=== PATIENT | female | born 1950 | race Two or more races ===

== ENCOUNTER → 2017-11-06 | Outpatient (CLI) | payer MEDICARE, BC ==
--- NOTE | 2017-11-06 14:54 | MM ---
Reason for exam: screening (asymptomatic). History: Patient is postmenopausal and history of other cancer. Physical Findings: A clinical breast exam by your physician is recommended on an annual basis and results should be correlated with mammographic findings. MG 3D Screening Mammo W/Cad Bilateral CC and MLO view(s) were taken. No prior studies available for comparison. There are scattered fibroglandular densities. Finding: There are typically benign dystrophic, round calcifications in both breasts, greater in the right breast. There is a chronic nodularity bilaterally, anterior depth, number of small nodules greater in the left breast. ASSESSMENT: Incomplete: need additional imaging evaluation, BI-RAD 0 RECOMMENDATION: Ultrasound of both breasts. [facility] will attempt to contact patient to return for ultrasound.
== END | disposition home or self-care (01) ==
LOC: RADMAMWWP 11:14
PROVIDERS: ATTEND Family Medicine
DX: Z12.31 Encounter for screening mammogram for malignant neoplasm of breast (principal)
CPT/HCPCS: 77063; 77067

== ENCOUNTER → 2017-11-25 | Outpatient (CLI) | payer MEDICARE, BC ==
--- NOTE | 2017-11-27 11:11 | USB ---
Reason for exam: additional evaluation requested from abnormal screening. History: Patient is postmenopausal and history of other cancer. Physical Findings: Nurse did not find any significant physical abnormalities on exam. US Breast Workup Limited DERECK Right limited breast ultrasound including focal area of concern, retroareolar and axilla demonstrates a 0.5 x 0.4 x 0.3cm oval, cystic lesion at 9 o'clock, a 0.7 x 0.5 x 0.3cm oval, cystic cluster at 10 o'clock and a 0.9 x 0.8 x 0.6cm axilla node. Left limited breast ultrasound including focal area of concern, retroareolar and axilla demonstrates a 0.5 x 0.5 x 0.2cm oval, mixed lesion at 12 o'clock, clustered cysts at 12 o'clock and dilated ducts at 12 o'clock. These results were verbally communicated with the patient and result sheet given to the patient on 11/25/17. ASSESSMENT: Probably benign, BI-RAD 3 RECOMMENDATION: Follow-up diagnostic mammogram of both breasts in 6 months.
== END | disposition home or self-care (01) ==
LOC: RADUSWWP 14:33
PROVIDERS: ATTEND Family Medicine
DX: R92.8 Other abnormal and inconclusive findings on diagnostic imaging of breast (principal)

== ENCOUNTER 2018-10-12 20:25 | Observation (INO) | payer MEDICARE, OTHER ==
[2018-10-12] MEDS ORDERED: MORPHINE SULFATE 4 MG/ML SYRINGE IVP STA (21:07)
--- NOTE | 2018-10-12 21:10 | ED ---
General Adult HPI - General Chief complaint: Back Pain/Injury Stated complaint: Back Pain Time Seen by Provider: 10/12/18 20:27 Source: patient, EMS Mode of arrival: EMS Limitations: no limitations - History of Present Illness Initial comments: Dictation was produced using [employer] dictation software. please excuse any grammatical, word or spelling errors. Chief Complaint: 68-year-old female presents with back pain. History of Present Illness: Patient is a 5-year-old female she presents back pain. Patient is a extensive history of back surgery. She is had multiple back operations his age of 16 secondary to a fall. She is 68 years old. Last time she had any significant back pain was approximately 10 years ago. Denies any saddle anesthesia, no bowel or bladder incontinence. Denies any new neuro deficits to the lower extremities. 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 Strain on her back. Her symptoms have been ongoing for the last 3-4 days. Today her pain was so bad that she came to the emergency department. Denies any trauma. No fever, Chills or night sweats. She states that most of her pain is when moving. When she is not moving she does not have any pain. The ROS documented in this emergency department record has been reviewed and confirmed by me. Those systems with pertinent positive or negative responses have been documented in the HPI. All other systems are other negative and/or noncontributory. PHYSICAL EXAM: General Impression: Alert and oriented x3, acute distress secondary to pain HEENT: Normocephalic atraumatic, extra-ocular movements intact, pupils equal and reactive to light bilaterally, mucous membranes moist. Cardiovascular: Heart regular rate and rhythm, S1&S2 audible, no murmurs, rubs or gallops Chest: Lungs clear to auscultation bilaterally, no rhonchi, no wheeze, no rales Abdomen: Bowel sounds present, abdomen soft, non-tender, non-distended, no organomegaly Musculoskeletal: Pulses present and equal in all extremities, no peripheral edema Motor: no focal deficits noted Neurological: CN II-XII grossly intact, no focal motor or sensory deficits noted Skin: Intact with no visualized rashes Psych: Normal affect and mood ED course: 68-year-old female presents with back pain. It's nontraumatic. Patient has history of back surgery with instrumentation. Vital signs upon arrival are within acceptable limits. No red flag symptoms. Patient is given fentanyl by EMS which improved patient's symptoms. Attempted to manipulate patient however she reports that her pain is too significant.Laboratory evaluation found to be unremarkable. Given patient's degree of symptoms lumbar spine of the CT was performed. CT shows no acute processes however there is multilevel postsurgical degenerative changes. Patient given multiple bouts of IV analgesia. She attempts to walk however her pain was so significant that she was unable to. Patient will be admitted to observation with consultation to spine surgery, and pain control. - Related Data Home Medications Medication Instructions Recorded Confirmed Acetaminophen [Tylenol Extra 1,000 mg PO TID PRN 10/12/18 10/12/18 Strength] Atorvastatin [Lipitor] 40 mg PO HS 10/12/18 10/12/18 Cbd Oil 500mg 2 drops MUCOUS MEM BID 10/12/18 10/12/18 Cholecalciferol [Vitamin D3 (25 1,000 unit PO DAILY 10/12/18 10/12/18 Mcg = 1000 Iu)] FLUoxetine HCL [PROzac] 40 mg PO DAILY 10/12/18 10/12/18 Famotidine [Pepcid] 20 mg PO DAILY 10/12/18 10/12/18 Gabapentin [Neurontin] 200 mg PO TID 10/12/18 10/12/18 Oxybutynin Xl [Ditropan Xl] 5 mg PO DAILY 10/12/18 10/12/18 Allergies Allergy/AdvReac Type Severity Reaction Status Date / Time No Known Allergies Allergy Verified 10/12/18 20:53 Review of Systems ROS Statement: Those systems with pertinent positive or pertinent negative responses have been documented in the HPI. ROS Other: All systems not noted in ROS Statement are negative. Past Medical History Past Medical History: Hypertension History of Any Multi-Drug Resistant Organisms: None Reported Past Surgical History: Back Surgery Additional Past Surgical History / Comment(s): claudia to lower back. bilateral lens replacement. Past Psychological History: Anxiety, Depression Smoking Status: Former smoker Past Alcohol Use History: Rare Past Drug Use History: Marijuana General Exam Limitations: no limitations Course Vital Signs 10/12/18 10/12/18 20:28 21:55 Temperature 98.9 F Pulse Rate 72 76 Respiratory 16 18 Rate Blood Pressure 148/67 148/79 O2 Sat by Pulse 95 98 Oximetry Medical Decision Making - Lab Data Result diagrams: 10/12/18 21:24 10/12/18 21:24 Lab Results 10/12/18 10/12/18 Range/Units 21:24 21:24 WBC 10.1 (3.8-10.6) k/uL RBC 4.79 (3.80-5.40) m/uL Hgb 13.2 (11.4-16.0) gm/dL Hct 42.3 (34.0-46.0) % MCV 88.2 (80.0-100.0) fL MCH 27.6 (25.0-35.0) pg MCHC 31.3 (31.0-37.0) g/dL RDW 15.4 (11.5-15.5) % Plt Count 255 (150-450) k/uL Neutrophils % 76 % Lymphocytes % 12 % Monocytes % 7 % Eosinophils % 2 % Basophils % 0 % Neutrophils # 7.7 (1.3-7.7) k/uL Lymphocytes # 1.2 (1.0-4.8) k/uL Monocytes # 0.7 (0-1.0) k/uL Eosinophils # 0.2 (0-0.7) k/uL Basophils # 0.0 (0-0.2) k/uL Sodium 139 (137-145) mmol/L Potassium 4.5 (3.5-5.1) mmol/L Chloride 106 (98-107) mmol/L Carbon Dioxide 25 (22-30) mmol/L Anion Gap 8 mmol/L BUN 22 H (7-17) mg/dL Creatinine 0.89 (0.52-1.04) mg/dL Est GFR (CKD-EPI)AfAm 76 (>60 ml/min/1.73 sqM) Est GFR (CKD-EPI)NonAf 66 (>60 ml/min/1.73 sqM) Glucose 93 (74-99) mg/dL Calcium 9.2 (8.4-10.2) mg/dL Disposition Clinical Impression: Mechanical back pain Disposition: ADMITTED IP TO THIS [facility] Condition: Fair Referrals: Benny Barbosa MD [Primary Care Provider] - 1-2 days Decision Time: 22:51
[2018-10-12 21:42] LABS: Basophils % (A) 0 %; Eosinophils # (A) 0.2 k/uL (0-0.7); Eosinophils % (A) 2 %; HCT 42.3 % (34.0-46.0); HGB 13.2 gm/dL (11.4-16.0); Lymphocytes # (A) 1.2 k/uL (1.0-4.8); Lymphocytes % (A) 12 %; MCH 27.6 pg (25.0-35.0); MCHC 31.3 g/dL (31.0-37.0); MCV 88.2 fL (80.0-100.0); Mean Platelet Volume 6.8; Monocytes # (A) 0.7 k/uL (0-1.0); Monocytes % (A) 7 %; Neutrophils # (A) 7.7 k/uL (1.3-7.7); Neutrophils % (A) 76 %; Platelet Count 255 k/uL (150-450); RBC 4.79 m/uL (3.80-5.40); RDW 15.4 % (11.5-15.5); WBC 10.1 k/uL (3.8-10.6)
[2018-10-12 21:50] LABS: Calcium 9.2 mg/dL (8.4-10.2); Potassium 4.5 mmol/L (3.5-5.1)
--- NOTE | 2018-10-12 22:07 | CT ---
EXAMINATION TYPE: CT lumbar spine wo con DATE OF EXAM: 10/12/2018 9:40 PM COMPARISON: None. HISTORY: Low back pain. No injury. CT DLP: 1572 mGycm Automated exposure control for dose reduction was used. Unenhanced CT of the lumbar spine was performed. Bone and soft tissue window settings are submitted as well as coronal and sagittal reconstructions. 5 lumbar type vertebra are present. Lumbar spine shows straightening and alignment without evidence o f acute fracture or dislocation. There is moderate disc space narrowing with vacuum disc phenomenon a nd moderate anterior lateral spurring L2-L3 and L3-L4 levels. There is advanced disc space narrowing with moderate spurring at L4-L5 and L5-S1 levels. Posterior interpedicular rods and screws transfix L 4-S1 levels bilaterally. There is mild disc space narrowing with large right anterior spurring L1-L2 level. There are large bridging osteophytes in the lower thoracic spine.. Axial images at T12-L1 are felt within normal limits. Axial images at L1-L2 level show mild facet degenerative changes bilaterally. Axial images at L2-L3 level show moderate broad-based posterior spur disc complex effacing anterior t hecal sac with [id number] facet degenerative changes bilaterally. Posterior lateral thecal sac. There is moderate bilateral inferior neural foraminal narrowing. Axial images at L3-L4 level show advanced broad disc bulge effacing anterior thecal sac with mild-to- moderate facet degenerative changes bilaterally. There is mild left and moderate right-sided anterior inferior neural foraminal narrowing. Axial images at the L4-L5 level show postsurgical change with laminectomy defects and spinous process resection. Spinal canal is preserved. There is moderate right and mild left-sided neural foraminal n arrowing. Axial images at the L5-S1 level show [id number] facet degenerative changes bilaterally. There i s posterior using hardware. There are laminectomy defects and spinous process resection. There is mod erate to severe bilateral neural foraminal narrowing due to marginal spurring, left greater than righ t. Moderate to severe broad-based disc bulge is present. There are simple appearing 2 cm cyst laterally midpole of left kidney coronal image 23. There is darlene ical thinning of both kidneys. There is moderate to severe calcified plaque of the aorta extending in to branch vessels. A few sigmoid colonic diverticula are partially imaged. IMPRESSION: Multilevel postsurgical and degenerative changes as detailed above.
[2018-10-12] MEDS ORDERED: ONDANSETRON 4 MG/2 ML VIAL IVP PRN (22:48)
[2018-10-12] MEDS ORDERED: ACETAMINOPHEN TAB 325 MG TAB PO PRN (22:48)
[2018-10-12] MEDS ORDERED: NALOXONE 0.4 MG/ML 1 ML VIAL IV PRN (22:48)
[2018-10-12] MEDS ORDERED: oxyCODONE-APAP 5-325MG 1 EACH TAB PO PRN (22:48)
[2018-10-13] MEDS: MORPHINE SULFATE 4 MG/ML SYRINGE IV PRN ×3 (04:35→13:23)
[2018-10-13] MEDS: PANTOPRAZOLE 40 MG TABLET PO SCH (06:30)
[2018-10-13] MEDS: GABAPENTIN 100 MG CAP PO SCH ×3 (08:22→21:50)
--- NOTE | 2018-10-13 13:20 | P.CNOR ---
History of Present Illness - [facility] Consult date: 10/13/18 Requesting physician: Nitin Solis Consult reason: low back pain (Acute intractable low back pain), other (Right lower extremity radiculopathy) History of present illness: Patient is a very pleasant 68-year-old female who is seen and examined the bedside for further evaluation for intractable low back pain. She states a week ago, 10/06/2018, she was sitting in an awkward position for a prolonged period of time sitting on a hard chair leaning forward working on [employer]. Since that time she's been experiencing increased pain at the right lower lumbar spine with pain radiating over the right anterior thigh. Her symptoms continue to worsen without improvement and she presents emergency department yesterday for further evaluation. She is admitted to medicine consultation placed with orthopedics. A CT of the lumbar spine was performed during her presentation to the emergency department. She is known have previously undergone a posterior lateral decompression and fusion at L4-5 and L5-S1 performed in [place], [place] by Dr. Alva in 2007. She states her symptoms have been fairly well controlled until this exacerbation of her symptoms. She does not take narcotic pain medication at home. Her pain is so debilitating she's been requiring morphine IV for pain control. With the morphine she is able to ambulate with assistance of a walker. She denies specific lower extremity weakness bilaterally. She is difficulty with ambulation due to her pain. She has a past medical history which includes hypertension. Past Medical History Past Medical History: Hypertension Additional Past Medical History / Comment(s): arthritis, chronic back pain, neuropathy- in back into right leg. History of Any Multi-Drug Resistant Organisms: None Reported Past Surgical History: Back Surgery Additional Past Surgical History / Comment(s): claudia to lower back. bilateral lens replacement, 2019- left knee replacement. Past Anesthesia/Blood Transfusion Reactions: No Reported Reaction Past Psychological History: Anxiety, Depression, Panic Disorder Additional Psychological History / Comment(s): recently started having panic attacks- large crowds. Smoking Status: Former smoker Past Alcohol Use History: Rare Past Drug Use History: Marijuana - Past Family History Mother Family Medical History: Dementia, Hypertension Father Family Medical History: Dementia Medications and Allergies Home Medications Medication Instructions Recorded Confirmed Type Acetaminophen [Tylenol Extra 1,000 mg PO TID PRN 10/12/18 10/13/18 History Strength] Atorvastatin [Lipitor] 40 mg PO HS 10/12/18 10/12/18 History Cbd Oil 500mg 3 drops MUCOUS MEM BID 10/12/18 10/13/18 History Cholecalciferol [Vitamin D3 (25 1,000 unit PO DAILY 10/12/18 10/13/18 History Mcg = 1000 Iu)] FLUoxetine HCL [PROzac] 40 mg PO DAILY 10/12/18 10/12/18 History Famotidine [Pepcid] 20 mg PO DAILY 10/12/18 10/12/18 History Gabapentin [Neurontin] 200 mg PO TID 10/12/18 10/12/18 History Oxybutynin Xl [Ditropan Xl] 5 mg PO DAILY 10/12/18 10/12/18 History Allergies Allergy/AdvReac Type Severity Reaction Status Date / Time No Known Allergies Allergy Verified 10/12/18 20:53 Physical Examination Physical exam: Patient is awake, alert, and oriented 3 Vital signs stable Good chest excursion with deep inspiration and expiration Examination of lumbar spine reveals skin is intact with no abrasions, lacerations, or bruises; no erythema, purulence or signs of infection Evidence of a large well-healed incision along the midline of the lumbar spine No significant pain with palpation along the right side of the lower lumbar spine Dorsiflexion, plantarflexion, and extensor hallucis longus positive sustained bilaterally Lower extremity strength 5/5 bilaterally Hip flexion on the left exacerbates right-sided low back pain Straight leg test negative bilateral lower extremities No signs or symptoms of DVT; no calf pain No pain with internal and external rotation of the hips bilaterally Neurovascularly intact Results Pertinent studies: CT of the lumbar spine taken on 10/12/2018: Evidence of posterior interpedicular rods and screw fixation at L4-5 and L5-S1 bilaterally; significant osteophytic spurring in the lumbar spine most significant anteriorly at L2-3 and L3-4; Large right osteophytic spurring at L1-2; Bridging anterior osteophytic spurring of the lower thoracic spine; L2-3 moderately severe facet degenerative changes bilaterally and broad-based posterior disc spur complex resulting in bilateral neural foraminal narrowing; a 34 advanced broad-based disc protrusion and facet degenerative changes bilaterally resulting in mild left and moderate right neural foraminal narrowing - Labs Labs: Abnormal Lab Results - Last 24 Hours (Table) 10/12/18 Range/Units 21:24 BUN 22 H (7-17) mg/dL H & H 10/12/18 Range/Units 21:24 Hgb 13.2 (11.4-16.0) gm/dL Hct 42.3 (34.0-46.0) % Result Diagrams: 10/12/18 21:24 10/12/18 21:24 Assessment and Plan Assessment: Assessment: Acute intractable low back pain Right lower extremity radiculopathy Difficulty with ambulation due to pain Lumbar facet arthropathy Lumbar osteophytic spurring History of previous lumbar fusion L4-5 and L5-S1 History of hypertension (1) History of lumbar spinal fusion Current Visit: Yes Status: Acute Code(s): Z98.1 - ARTHRODESIS STATUS SNOMED Code(s): 92959014649311 (2) Intractable low back pain Current Visit: Yes Status: Acute Code(s): M54.5 - LOW BACK PAIN SNOMED Code(s): 89298865957940131 (3) Lumbar back pain with radiculopathy affecting right lower extremity Current Visit: Yes Status: Acute Code(s): M54.16 - RADICULOPATHY, LUMBAR REGION SNOMED Code(s): 274380394 (4) Lumbar facet arthropathy Current Visit: Yes Status: Acute Code(s): M47.816 - SPONDYLOSIS W/O MYELOPATHY OR RADICULOPATHY, LUMBAR REGION SNOMED Code(s): 377027884 (5) Osteophyte Current Visit: Yes Status: Acute Code(s): M25.70 - OSTEOPHYTE, UNSPECIFIED JOINT SNOMED Code(s): 965121473475027 (6) Decreased ambulation status Current Visit: Yes Status: Acute Code(s): Z74.09 - OTHER REDUCED MOBILITY SNOMED Code(s): 135967477 (7) Hypertension Current Visit: Yes Status: Acute Code(s): I10 - ESSENTIAL (PRIMARY) HYPERTENSION SNOMED Code(s): 42739213 Plan: Plan: 1. After physical examination the patient, reviewing of imaging, and further discussion with the patient, we will plan to obtain an MRI of the lumbar spine with and without contrast for further evaluation. Patient is known have previously undergone lumbar fusion at L4-5 and L5-S1 performed in 2007 in [place], [place]. Her symptoms have been adequately controlled since that time until her recent exacerbation of pain with increased right-sided low back pain and pain radiating over the right anterior thigh. She has had significant difficulty with ambulation and mobility due to her pain. She does have significant degenerative changes at her lumbar spine above her surgical levels. Her lower extremity radiculopathy symptoms could correlate well with these adjacent level changes. We will plan to obtain the MRI of the lumbar spine with and without contrast for further evaluation. We will follow up with the patient following the MRI results to discuss further treatment options. We will plan for consultation with pain management. Patient may continue to ambulate as tolerated and may continue using a walking aid as needed to aid in ambulation. Continue with pain control as prescribed by medicine. 2. Patient currently waiting for consultation with pain management 3. Patient will continue be seen and examined by medicine Time with Patient: Greater than 30 (Including obtaining history, physical examination, reviewing of imaging, and dictation.)
[2018-10-13] MEDS: OXYBUTYNIN XL 5 MG TAB.ER.24 PO SCH (13:21)
[2018-10-13] MEDS: FLUoxetine HCL 20 MG CAP PO SCH (13:21)
--- NOTE | 2018-10-13 15:13 | P.HPIM ---
History of Present Illness H&P Date: 10/13/18 Chief Complaint: Low back pain History of presenting complaint: This is a pleasant 68-year-old patient of Dr. sherman. Chronic stable medical conditions include hypertension, obesity, anxiety, depression. Back in 2009 patient had lower spine surgery done by Dr. Alva out of [place]. Titanium plates were placed. Patient had some pain on and off. Now patient presents increasing lower back pain. Some pain radiating radiating down the right leg. Patient does use a walker. No fever no chills. No local injury. No change in bowel or urine. Admitted for the same. Orthopedic spine was consulted. Patient has not followed up with Dr. Alva for a period. Review of systems: GEN.: None EYES: None HEENT: None NECK: None RESPIRATORY: None CARDIOVASCULAR: None GASTROINTESTINAL: None GENITOURINARY: None MUSCULOSKELETAL: As above LYMPHATICS: None HEMATOLOGICAL: None PSYCHIATRY: None NEUROLOGICAL: Anxiety depression controlled Social history: Lives alone. Did smoke in the remote past. Does use a walker. No alcohol. Physical examination: VITAL SIGNS: 98.9, 72, 16, 148/67, 95% on room air GENERAL: BMI 37.1, laying in bed, not in distress. EYES: Pupils equal. Conjunctiva normal. HEENT: External appearance of nose and ears normal, oral cavity grossly normal, receding frontal hairline. NECK: JVD not raised; masses not palpable. HEART: First and second heart sounds are normal; no edema. LUNGS: Respiratory rate normal; clear to auscultation. ABDOMEN: Soft, nontender, liver spleen not palpable, no masses palpable. PSYCH: Alert and oriented x3; mood and affect normal. NEUROLOGICAL: Cranial nerves grossly intact; no facial asymmetry, power and sensation grossly intact. LYMPHATICS: No lymph nodes palpable in the axilla and neck MUSCULOSKELETAL: Able to raise the left leg about 40, right leg about 50. Knee Reflexes are equivocal Investigations, reviewed in clinical context, Computed tomography scan of the lumbar spine showing multiple levels of DJD including bilateral neural foramina White count 10.1 hemoglobin 13.2 potassium 4.5 Assessment: -Acute on chronic low back pain in a patient's had surgery several years ago. Now presents with worsening pain. Computed tomography scan of the spine showing worsening arthritis at several levels of neural foramina narrowing. There is no one level of disease process. Doubt if any surgical intervention will have. -Essential hypertension -Radiculopathy from arthritis -Obesity BMI 37.1 -Anxiety depression otherwise specified Plan: We'll start the patient on Tylenol 3 schedule, baclofen for muscle spasm. Patient had a renal followed the past but currently his renal function is good. We will discussed with the patient and monitor renal function and give a trial of NSAIDs as admitted to be really be helpful helpful in this case. Other home medications resumed. Lovenox for DVT prophylaxis. Orthopedic spine Dr. Davila was consulted. Past Medical History Past Medical History: Hypertension Additional Past Medical History / Comment(s): arthritis, chronic back pain, neuropathy- in back into right leg. History of Any Multi-Drug Resistant Organisms: None Reported Past Surgical History: Back Surgery Additional Past Surgical History / Comment(s): claudia to lower back. bilateral lens replacement, 2019- left knee replacement. Past Anesthesia/Blood Transfusion Reactions: No Reported Reaction Past Psychological History: Anxiety, Depression, Panic Disorder Additional Psychological History / Comment(s): recently started having panic attacks- large crowds. Smoking Status: Former smoker Past Alcohol Use History: Rare Past Drug Use History: Marijuana - Past Family History Mother Family Medical History: Dementia, Hypertension Father Family Medical History: Dementia Medications and Allergies Home Medications Medication Instructions Recorded Confirmed Type Acetaminophen [Tylenol Extra 1,000 mg PO TID PRN 10/12/18 10/13/18 History Strength] Atorvastatin [Lipitor] 40 mg PO HS 10/12/18 10/12/18 History Cbd Oil 500mg 3 drops MUCOUS MEM BID 10/12/18 10/13/18 History Cholecalciferol [Vitamin D3 (25 1,000 unit PO DAILY 10/12/18 10/13/18 History Mcg = 1000 Iu)] FLUoxetine HCL [PROzac] 40 mg PO DAILY 10/12/18 10/12/18 History Famotidine [Pepcid] 20 mg PO DAILY 10/12/18 10/12/18 History Gabapentin [Neurontin] 200 mg PO TID 10/12/18 10/12/18 History Oxybutynin Xl [Ditropan Xl] 5 mg PO DAILY 10/12/18 10/12/18 History Allergies Allergy/AdvReac Type Severity Reaction Status Date / Time No Known Allergies Allergy Verified 10/12/18 20:53 Physical Exam Vitals: Vital Signs Temp Pulse Pulse Resp BP BP Pulse Ox 10/13/18 11:35 98.1 F 73 16 149/68 94 L 10/13/18 08:20 98.3 F 68 18 124/73 94 L 10/13/18 00:00 97.7 F 72 18 165/82 97 10/12/18 21:55 76 18 148/79 98 10/12/18 20:28 98.9 F 72 16 148/67 95 Intake and Output 10/13/18 10/13/18 10/13/18 06:59 14:59 22:59 Intake Total 120 1200 Balance 120 1200 Intake: Oral 120 1200 Other: Voiding Method Toilet # Voids 1 2 Results CBC & Chem 7: 10/12/18 21:24 10/12/18 21:24 Labs: Abnormal Lab Results - Last 24 Hours (Table) 10/12/18 Range/Units 21:24 BUN 22 H (7-17) mg/dL Thrombosis Risk Factor Assmnt - Choose All That Apply Any of the Below Risk Factors Present?: Yes Each Factor Represents 1 point: Obesity (BMI >25) Other Risk Factors: Yes Each Risk Factor Represents 2 Points: Age 61-74 years Other congenital or acquired thrombophilia - If yes, enter type in comment: No Thrombosis Risk Factor Assessment Total Risk Factor Score: 3 Thrombosis Risk Factor Assessment Level: Moderate Risk
[2018-10-13] MEDS: BACLOFEN 10 MG TAB PO SCH ×2 (15:58→21:50)
[2018-10-13] MEDS: ENOXAPARIN 40 MG/0.4 ML SYRINGE SQ SCH (15:58)
[2018-10-13] MEDS: Acetaminophen-Codeine 300-30mg TAB PO SCH ×2 (15:59→19:55)
[2018-10-13] MEDS: NAPROXEN 250 MG TAB PO SCH ×2 (16:00→21:51)
--- NOTE | 2018-10-13 16:42 | MR ---
EXAMINATION TYPE: MR lumbar spine wo/w con DATE OF EXAM: 10/13/2018 COMPARISON: None HISTORY: Intractable LBP, R LE Radiculopathy, Hx of fusion TECHNIQUE: Multiplanar, multisequence images of the lumbar spine were acquired utilizing 10 mL intravenous Gadav ist gadolinium contrast. Lumbar vertebra have normal alignment. There is narrowing of disc spaces throughout the lumbar spine. There is posterior fusion surgery from L4 to S1 with rods and screws. There is metal artifact. There is posterior disc herniation at L2-3 with hypertrophic facet arthropathy and resultant moderate spin al stenosis. There is narrowing of the neural foramina bilaterally at L4-5 and L5-S1 due to disc spac e narrowing and facet arthropathy. There is no compression fracture. I see no focal bone destruction. Contrast images show no pathologic enhancement. There is no lumbar paraspinal mass. Sacroiliac joint s appear normal. IMPRESSION: Moderate multilevel spondylosis. No fracture. Posterior fusion surgery. No sign of instability. Disc herniation posteriorly in the midline with facet arthropathy and mild to moderate L to 3 spinal steno sis. There is significant facet arthropathy on the left side at L3-4 with lateral recess stenosis. No fracture.
[2018-10-13] MEDS ORDERED: ATORVASTATIN 40 MG TAB PO SCH (21:00)
[2018-10-13] MEDS: methylPREDNISolone SOD SUCCI 125 MG/2 ML VIAL IV SCH (21:49)
[2018-10-13] MEDS: SODIUM CHLORIDE 0.9% 1,000 ML IV SCH ×2 (22:01)
[2018-10-14] MEDS: Acetaminophen-Codeine 300-30mg TAB PO SCH ×3 (00:36→12:17)
[2018-10-14] MEDS: PANTOPRAZOLE 40 MG TABLET PO SCH (06:28)
--- NOTE | 2018-10-14 07:05 | P.PAINCN ---
History of Present Illness - Reason for Consult Consult date: 10/13/18 - History of Present Illness This is a pleasant 68-year-old patient presenting with acute on chronic low back pain. Chronic stable medical conditions include hypertension, obesity, anxiety, depression. Patient had some chronic low back pain on and off for the last several years.. She states a week ago, 10/06/2018, she was sitting in an awkward position for a prolonged period of time sitting on a hard chair leaning forward over a low table working on [employer]. Since that time she's been experiencing increased pain at the right lower lumbar spine with pain radiating over the right anterior thigh. Her symptoms continue to worsen without improvement and she presents emergency department yesterday for further evaluation. She is admitted to medicine consultation placed with orthopedics. A CT of the lumbar spine was performed during her presentation to the emergency department. She is known have previously undergone a posterior lateral decompression and fusion at L4-5 and L5-S1 performed in [place], [place] by Dr. Alva in 2007. She states her symptoms have been fairly well controlled until t his exacerbation of her symptoms. She does not take narcotic pain medication at home. Her pain is so debilitating she's been requiring morphine IV for pain control. With the morphine she is able to ambulate with assistance of a walker. She denies specific lower extremity weakness bilaterally. She is having difficulty with ambulation due to her pain. Patient HAS NOT had injections previously. In addition to above, 13-point review of systems is also negative for chest pain, shortness of breath, changes in vision, changes in hearing, new onset weakness, abdominal pain, diarrhea, extreme fatigue, malaise, fever, skin changes, homicidal or suicidal ideation, or bowel or bladder incontinence. Vital Signs: Reviewed in EMR GENERAL: Well appearing, in no acute distress PSYCH: Mood and affect is appropriate. Awake, alert, and oriented SKIN: Skin color, texture, turgor normal, no rashes or lesions HEENT: Normocephalic, atraumatic. EOM intact CV: No pedal edema RESP: Respirations are unlabored, no audible wheezing GI: Abdomen non-distended MUSCULOSKELETAL: Bilateral lower extremity strength is normal and symmetric. No atrophy or tone abnormalities are noted. Lumbar spine: Tenderness to palpation over the lumbar spine and right-sided paraspinous muscles. Buttocks: No pain to palpation over the PSIS, Extremities: Peripheral joint ROM is full and pain free without obvious instability or laxity in all four extremities. No edema or skin discolorations noted. NEUR: No loss of sensation is noted. Cranial nerves are grossly intact. Imaging: MRI lumbar spine done shows posterior disc herniation at L2-3 resulting in moderate spinal canal stenosis. Posterior fusion from L4 to S1. Assessment: 1. Spinal canal stenosis 2. Lumbar radicular pain 3. Lumbar spondylosis 4. Obesity 5. Hypertension 6. Depression and anxiety Plan: Procedures: Patient may benefit from right L2-3 transforaminal epidural steroid injection. We will perform this while she is inpatient. Medications: Per primary team. Could potentially benefit from addition of Flexeril 5 mg 3 times a day when necessary for muscle spasms PQRS measures: 1-Patient's medications are documented in the chart. 2-Tobacco use is negative 3-Patient has not had a pneumococcal vaccine. 4-Advanced care planning not discussed 5-Opioid contract not signed with the patient. 6-Pain positive, follow-up visit or procedure scheduled 7-Patient's blood pressure measured and documented, within normal limits. 8-Patient's weight was measured, and body mass index ABOVE the normal limits, a nd counseling was done. Patient instructed to follow up with PCP. 9-Patient WAS NOT identified as an unhealthy alcohol user. Past Medical History Past Medical History: Hypertension Additional Past Medical History / Comment(s): arthritis, chronic back pain, neuropathy- in back into right leg. History of Any Multi-Drug Resistant Organisms: None Reported Past Surgical History: Back Surgery Additional Past Surgical History / Comment(s): claudia to lower back. bilateral lens replacement, 2019- left knee replacement. Past Anesthesia/Blood Transfusion Reactions: No Reported Reaction Past Psychological History: Anxiety, Depression, Panic Disorder Additional Psychological History / Comment(s): recently started having panic attacks- large crowds. Smoking Status: Former smoker Past Alcohol Use History: Rare Past Drug Use History: Marijuana - Past Family History Mother Family Medical History: Dementia, Hypertension Father Family Medical History: Dementia Medications and Allergies Home Medications Medication Instructions Recorded Confirmed Type Acetaminophen [Tylenol Extra 1,000 mg PO TID PRN 10/12/18 10/13/18 History Strength] Atorvastatin [Lipitor] 40 mg PO HS 10/12/18 10/12/18 History Cbd Oil 500mg 3 drops MUCOUS MEM BID 10/12/18 10/13/18 History Cholecalciferol [Vitamin D3 (25 1,000 unit PO DAILY 10/12/18 10/13/18 History Mcg = 1000 Iu)] FLUoxetine HCL [PROzac] 40 mg PO DAILY 10/12/18 10/12/18 History Famotidine [Pepcid] 20 mg PO DAILY 10/12/18 10/12/18 History Gabapentin [Neurontin] 200 mg PO TID 10/12/18 10/12/18 History Oxybutynin Xl [Ditropan Xl] 5 mg PO DAILY 10/12/18 10/12/18 History Allergies Allergy/AdvReac Type Severity Reaction Status Date / Time No Known Allergies Allergy Verified 10/12/18 20:53 Physical Exam Vitals: Vital Signs Temp Pulse Resp BP Pulse Ox 10/14/18 00:38 98 F 79 18 147/86 93 L 10/13/18 19:25 98.3 F 65 18 139/83 95 10/13/18 16:25 98.2 F 66 18 120/60 93 L 10/13/18 11:35 98.1 F 73 16 149/68 94 L 10/13/18 08:20 98.3 F 68 18 124/73 94 L Intake and Output 10/13/18 10/13/18 10/14/18 14:59 22:59 06:59 Intake Total 1200 1600 Balance 1200 1600 Intake: Intake, IV Titration 1000 Amount Sodium Chloride 0.9% 1, 1000 000 ml @ 20 mls/hr IV . Q24H FAITH Rx#:[id number] Oral 1200 600 Other: Voiding Method Toilet Toilet Toilet # Voids 2 1 1 Results CBC & Chem 7: 10/12/18 21:24 10/12/18 21:24 PQRS Measure Charge Sheet PQRS Narrative: Smoking Status Former smoker Do You Want the Pneumonia No Vaccine AT THIS TIME? Blood Pressure [Right Arm] 147/86 Blood Pressure 148/79 Pain Intensity [Right Lower 0 Back] Pain Intensity 2 Pain Scale Used Non Verbal Pain Indicator Scale Used Numeric (1 - 10) Home Medications: Ambulatory Orders Acetaminophen [Tylenol Extra Strength] 1,000 mg PO TID PRN 10/12/18 Atorvastatin [Lipitor] 40 mg PO HS 10/12/18 Cbd Oil 500mg 3 drops MUCOUS MEM BID 10/12/18 Cholecalciferol [Vitamin D3 (25 Mcg = 1000 Iu)] 1,000 unit PO DAILY 10/12/18 FLUoxetine HCL [PROzac] 40 mg PO DAILY 10/12/18 Famotidine [Pepcid] 20 mg PO DAILY 10/12/18 Gabapentin [Neurontin] 200 mg PO TID 10/12/18 Oxybutynin Xl [Ditropan Xl] 5 mg PO DAILY 10/12/18
[2018-10-14] MEDS: GABAPENTIN 100 MG CAP PO SCH (08:40)
[2018-10-14] MEDS: methylPREDNISolone SOD SUCCI 125 MG/2 ML VIAL IV SCH (08:40)
[2018-10-14] MEDS: FLUoxetine HCL 20 MG CAP PO SCH (08:41)
[2018-10-14] MEDS: OXYBUTYNIN XL 5 MG TAB.ER.24 PO SCH (08:41)
[2018-10-14] MEDS: BACLOFEN 10 MG TAB PO SCH (08:42)
[2018-10-14] MEDS: ENOXAPARIN 40 MG/0.4 ML SYRINGE SQ SCH (08:43)
[2018-10-14] MEDS: NAPROXEN 250 MG TAB PO SCH (08:43)
[2018-10-14] MEDS ORDERED: FAMOTIDINE 20 MG TAB PO SCH (09:00)
[2018-10-14 11:25] VITALS: RESP 20
[2018-10-14 12:57] VITALS: BP 152/88; PULSE 90; TEMP 97.8
--- NOTE | 2018-10-15 10:18 | P.DS ---
Providers Date of admission: 10/12/18 22:49 Expected date of discharge: 10/14/18 Attending physician: Joe Carmona Consults: 10/12/18 22:49 Consult Physician Routine Consulting Provider: Dasia Reyes Consult Reason/Comments: back pain Do you want consulting provider notified?: Yes Primary care physician: Benny Barbosa [facility] Course: Hospital course: This is a pleasant 68-year-old patient of Dr. barbosa. Chronic stable medical conditions include hypertension, obesity, anxiety, depression. Back in 2009 patient had lower spine surgery done by Dr. Alva out of [place]. Titanium plates were placed. Patient had some pain on and off. Now patient presents increasing lower back pain. Some pain radiating radiating down the right leg. Patient does use a walker. No fever no chills. No local injury. No change in bowel or urine. Admitted for the same. Orthopedic spine was consulted. Patient has not followed up with Dr. Alva for a period. Patient did have both lumbar spine computed tomography scan and a lumbar MRI. Showed predominantly moderate multiple level spondylosis. No fracture. Showed prior surgery evidence. Some discomfort herniation. Patient was seen by the pain management team. They will schedule epidural injection as an outpatient. Patient was given NSAIDs antispasmodic to which she responded well. Care was discussed with her in detail. In the past she's had kidney problems. She was told to follow up in a week for the family doctor to get a kidney numbers checked again. She'll also try to reach out to her previous surgeon Dr. Alva. She also follows with a local orthopedic spine Dr. Frye Discussion discharge planning more than 35 minutes Consultation: Dr. Fox from pain management Dr. reyes from orthopedic spine Physical examination: VITAL SIGNS: 98, 88, 20, 146/84, 95% room air GENERAL: BMI 37.1, laying in bed, not in distress. HEART: First and second heart sounds are normal; no edema. LUNGS: Respiratory rate normal; clear to auscultation. ABDOMEN: Soft, nontender, liver spleen not palpable, no masses palpable. PSYCH: Alert and oriented x3; mood and affect normal. NEUROLOGICAL: Cranial nerves grossly intact; no facial asymmetry, power and sensation grossly intact. MUSCULOSKELETAL: Able to raise the left leg about 40, right leg about 50. Knee Reflexes are equivocal Investigations, reviewed in clinical context, Computed tomography scan of the lumbar spine showing multiple levels of DJD including bilateral neural foramina MRI of the lumbar spine-see above White count 10.1 hemoglobin 13.2 potassium 4.5 Assessment: -Acute on chronic low back pain in a patient's had surgery several years ago. Now presents with worsening pain. Computed tomography scan of the spine showing worsening arthritis at several levels of neural foramina narrowing. There is no one level of disease process. Doubt if any surgical intervention will help. -Essential hypertension -Radiculopathy from arthritis -Obesity BMI 37.1 -Anxiety depression otherwise specified Disposition: Home Patient Condition at Discharge: Stable Plan - Discharge Summary Discharge Rx Participant: No New Discharge Prescriptions: New Baclofen 5 mg PO TID #21 tablet Naproxen [Naprosyn] 250 mg PO TID #20 tab Continue Cholecalciferol [Vitamin D3 (25 Mcg = 1000 Iu)] 1,000 unit PO DAILY Oxybutynin Xl [Ditropan XL] 5 mg PO DAILY Gabapentin [Neurontin] 200 mg PO TID FLUoxetine HCL [PROzac] 40 mg PO DAILY Atorvastatin [Lipitor] 40 mg PO HS Changed Famotidine [Pepcid] 20 mg PO BID #60 tab Acetaminophen [Tylenol Extra Strength] 500 mg PO Q6H #1 No Action Cbd Oil 500mg 3 drops MUCOUS MEM BID predniSONE See Taper PO DAILY Discharge Medication List Atorvastatin [Lipitor] 40 mg PO HS 10/12/18 [History] Cbd Oil 500mg 3 drops MUCOUS MEM BID 10/12/18 [History] Cholecalciferol [Vitamin D3 (25 Mcg = 1000 Iu)] 1,000 unit PO DAILY 10/12/18 [History] FLUoxetine HCL [PROzac] 40 mg PO DAILY 10/12/18 [History] Gabapentin [Neurontin] 200 mg PO TID 10/12/18 [History] Oxybutynin Xl [Ditropan XL] 5 mg PO DAILY 10/12/18 [History] Acetaminophen [Tylenol Extra Strength] 500 mg PO Q6H #1 10/14/18 [Rx] Baclofen 5 mg PO TID #21 tablet 10/14/18 [Rx] Famotidine [Pepcid] 20 mg PO BID #60 tab 10/14/18 [Rx] Naproxen [Naprosyn] 250 mg PO TID #20 tab 10/14/18 [Rx] predniSONE See Taper PO DAILY 10/15/18 [History] Follow up Appointment(s)/Referral(s): Benny Barbosa MD [Primary Care Provider] - 10/29/18 11:20 am Rob Marie PAC [PHYSICIAN LEACH CELL OPERATOR] - 10/24/18 1:00 pm (Patient may follow-up with Rob Marie PA-C or Dr. Francisco Javier Reyes at [facility] on an as-needed basis following discharge. ) Activity/Diet/Wound Care/Special Instructions: Continue regular diet as tolerated. fluids are always encouraged. no heavy lifting pushing or pulling over 5 pounds until follow up with physician. epidural injection scheduled for (). continue medications as prescribed by physician. Follow up with physicians as directed. Call physician with any questions comments concerns worsening returning sypmtoms, fever 101.1 or higher, pain not controlled by prescribed medications. Discharge Disposition: HOME SELF-CARE
== END 2018-10-14 15:11 | disposition home or self-care (01) ==
LOC: EC 20:25 → 6PED 22:49
PROVIDERS: ADMIT Hospitalist; ATTEND Hospitalist
DX: G89.29 Other chronic pain (principal); M54.5 Low back pain; I10 Essential (primary) hypertension; E66.9 Obesity, unspecified; Z68.37 Body mass index [BMI] 37.0-37.9, adult; F41.0 Panic disorder [episodic paroxysmal anxiety]; F32.9 Major depressive disorder, single episode, unspecified; M47.26 Other spondylosis with radiculopathy, lumbar region; M47.9 Spondylosis, unspecified; Z98.1 Arthrodesis status; M48.061 Spinal stenosis, lumbar region without neurogenic claudication; M51.16 Intervertebral disc disorders with radiculopathy, lumbar region; M51.06 Intervertebral disc disorders with myelopathy, lumbar region; M46.96 Unspecified inflammatory spondylopathy, lumbar region; M46.06 Spinal enthesopathy, lumbar region; Z74.09 Other reduced mobility; Z87.891 Personal history of nicotine dependence; Z79.899 Other long term (current) drug therapy; Z82.49 Family history of ischemic heart disease and other diseases of the circulatory system; Z81.8 Family history of other mental and behavioral disorders
CPT/HCPCS: 96372; 96375; 96376 ×2; 96374; 99285; 36415; 80048; 85025; 72131; 72158; G0378 ×3; J2270 ×2; J2930 ×2; J1650; A9585

== ENCOUNTER 2018-10-16 10:14 | Day surgery (SDC) | payer MEDICARE, OTHER ==
[2018-10-15 10:08] VITALS: BMI 37.0
[~2018-10-16 10:14] MED LIST: LACTATED RINGERS 1,000 ML IV SCH
[2018-10-16] MEDS ORDERED: LIDOCAINE 1% 20 ML VIAL (10MG/ML) FOR IV START INTRADERMA ONE (10:48)
[2018-10-16 10:50] VITALS: TEMP 97.3
[2018-10-16 10:52] LABS: Glucose,Whole Blood 85 mg/dL (75-99)
--- NOTE | 2018-10-16 11:37 | P.PCN ---
Date of Procedure: 10/16/18 Procedure(s) Performed: PREOPERATIVE DIAGNOSIS: Lumbar radiculopathy POSTOPERATIVE DIAGNOSIS: Lumbar radiculopathy Attending physician: Agnieszka Fox M.D. PROCEDURE 1. Transforaminal epidural steroid injection under fluoroscopic guidance L2-L3 level, right side 2. Lumbar epidurogram ANESTHESIA: Local with 1% lidocaine 3 ml ; IV sedation with Versed and fentanyl PROCEDURE INDICATION: The patient with low back pain and radiculopathy symptoms unresponsive to conservative treatment. Fluoroscopy was used for the procedure and fluoroscopic images were saved to the radiology portion of patient's chart. PROCEDURE DESCRIPTION / TECHNIQUE: The patient was seen and identified in the preoperative area. Risks, benefits, complications, and alternatives were discussed with the patient. The patient agreed to proceed with the procedure and signed the consent. IV was started, and vital signs were stable. Patient was taken to the OR and time out was completed. The patient was placed in the prone position on procedure table and a pillow was placed under the abdomen to reduce lumbar lordosis. The lumbosacral area was prepped and draped in the usual sterile fashion. Vital signs were closely monitored during the procedure. Conscious sedation was used. Using oblique fluoroscopy, the chin of the ``Curtis dog and the skin and deeper tissues just below was localized with 1% lidocaine. Subsequently, a 22- gauge 3.5-inch spinal needle was advanced under a tunneled view fluoroscopic guidance just underneath the chin of the ``Curtis dog . Under lateral fluoroscopy, the needle was then advanced to the posterior border of the foramen. After negative aspiration of CSF and blood and with no paresthesias, 1 mL of Isovue-200 contrast dye was injected under live fluoroscopy and there was no evidence of intravascular injection. The injectate solution consisting of 10 mg of dexamethasone with 1 mL of 1% lidocaine was then delivered. The needle was withdrawn intact. At the end of the procedure, skin was cleansed, and bandages were applied. COMPLICATIONS: None COMMENTS: First attempt revealed psoas muscle spread, second attempt revealed good epidural spread. Of note patient has significant bridging osteophytes at L2-L3 on the right. DISPOSITION / PLANS: The patient was placed in a supine position and transferred to the recovery area in a stable condition for observation. There was no evidence of lower extremity motor or sensory deficit after the procedure. Patient was discharged from the recovery room after meeting discharge criteria. Home discharge instructions were given to the patient by the staff. The patient will follow up in clinic in 2-4 weeks.
[2018-10-16] MEDS ORDERED: IV FLUID CONTINUATION 1,000 ML IV ONE (11:48)
[2018-10-16 11:50] VITALS: RESP 18
[2018-10-16 12:12] VITALS: BP 160/97; PULSE 63
--- NOTE | 2018-10-16 13:00 | FL ---
Fluoroscopy HISTORY: Pain 20 seconds fluoroscopy time supplied to the referring clinician. 2 intraoperative C-arm images docum ent the procedure. See dictated report from anesthesia.
== END 2018-10-16 12:31 | disposition home or self-care (01) ==
LOC: ORPAIN 10:14
PROVIDERS: ATTEND Anesthesiology
DX: M54.16 Radiculopathy, lumbar region (principal); M25.78 Osteophyte, vertebrae
CPT/HCPCS: 64483; J2250; J1100; J3010; Q9966; 99152

== ENCOUNTER → 2018-10-30 | Outpatient (CLI) | payer MEDICARE, OTHER ==
--- NOTE | 2018-10-30 12:50 | P.PN ---
Subjective Progress Note Date: 10/30/18 This is a 68-year-old lady with history of chronic lower back pain with radiation to the right lower extremity down to the right knee with numbness in the right thigh. The patient had lumbar fusion previously. We did transforaminal epidural steroid injection at the L2 3 level on the right side but he weeks ago which gave her complete relief of pain for about 3 days and the pain started to come back gradually. Today, pt denies new-onset weakness, bowel/bladder incontinence, or any other signs or symptoms of cauda equina syndrome. There are no signs of acute intoxication, and no indications of medication diversion or overuse. In addition to above, 13-point review of systems is also negative for chest pain, shortness of breath, changes in vision, changes in hearing, new onset weakness, abdominal pain, diarrhea, extreme fatigue, malaise, fever, skin change s, homicidal or suicidal ideation, or bowel or bladder incontinence. Vital Signs: Reviewed in EMR Gen: AAOx3, NAD HEENT: PERRLA,hearing grossly normal Pulm: resp unlabored,CTA Heart:S1,S2, No Mur Neck: supple, trachea midline Neuro exam of the lower extremities: Normal muscle strength bilaterally, normal right knee reflex and absent left knee reflex due to previous knee replacement, absent ankle reflexes bilaterally Straight leg raising test: Negative bilaterally Elfego's test: Range of motion of the lumbar spine: Facet loading test: Tenderness in the paravertebral musculature: Positive bilaterally with the lumbar spine Neuro: CN II-XII grossly intact, Imaging: Reviewed in EMR/chart Assessment: Lumbar postlaminectomy pain syndrome Right lumbar radiculopathy Plan: 1. Explanation: Opioid and psychological risk scores were reviewed. Diagnoses, prognoses, and multiple treatment options including but not limited to physical therapy, interventional therapies, adjuvant medical therapies, narcotic medication therapies, and surgery were discussed with the patient and all questions were answered to the patient's satisfaction. 2. Opioid agreement: We do not prescribe opioids for this patient 3. Counseling: The patient was counseled extensively on SMOKING CESSATION, BODY MASS INDEX, EXERCISE. Specifically, the patient was instructed regarding the importance of smoking cessation, obesity, and exercise in the context of both chronic pain and overall health. 4. Procedures: Schedule him for a second transforaminal epidural steroid injection at the L2-L3 and L1-L2 levels on the right side 5. Consultations: None 6. Investigations: None 7. Medications: None 8. Disposition: Return to the above-mentioned procedure as soon as possible 9. Maps were reviewed and were appropriate. PQRS measures: 1-Patient's medications are documented in the chart. 2-Tobacco use is negative, counseling given 3-Patient has had a pneumococcal vaccine. 4-Advanced care planning discussed, patient unable to give 5-Opioid contract signed with the patient. 6-Pain positive, follow-up visit or procedure scheduled 7-Patient's blood pressure measured and documented within normal limits. The patient will follow up with his primary care physician. 8-Patient's weight was measured, and body mass index ABOVE the normal limits, and counseling was done. Patient instructed to follow up with PCP. 9-Patient WAS NOT identified as an unhealthy alcohol user. Objective - Vital Signs Vital signs: Vital Signs Temp Pulse 73 10/30/18 12:13 Resp 16 10/30/18 12:13 BP 113/77 10/30/18 12:13 Pulse Ox Intake & Output 10/29/18 10/30/18 10/30/18 18:59 06:59 18:59 Weight 101.605 kg
== END | disposition home or self-care (01) ==
CPT/HCPCS: 99211

== ENCOUNTER 2018-10-31 12:30 | Inpatient (IN) | payer MEDICARE, OTHER ==
[2018-10-31] MEDS ORDERED: SODIUM CHLORIDE 0.9% 1,000 ML IV STA ×2 (13:12)
[2018-10-31] MEDS ORDERED: PANTOPRAZOLE 40 MG/10 ML VIAL IVP STA (13:12)
[2018-10-31 13:38] LABS: Anisocytosis Slight; Basophils % (A) 0 %; Eosinophils # (A) 0.3 k/uL (0-0.7); Eosinophils % (A) 3 %; HCT 38.3 % (34.0-46.0); HGB 11.9 gm/dL (11.4-16.0); Lymphocytes % (A) 9 %; MCV 90.4 fL (80.0-100.0); Mean Platelet Volume 7.1; Monocytes # (A) 0.7 k/uL (0-1.0); Monocytes % (A) 7 %; Neutrophils # (A) 8.6 k/uL (1.3-7.7); Neutrophils % (A) 80 %; Platelet Count 243 k/uL (150-450); RBC 4.24 m/uL (3.80-5.40); RDW 16.4 % (11.5-15.5); WBC 10.9 k/uL (3.8-10.6)
[2018-10-31 13:47] LABS: Albumin 3.4 g/dL (3.5-5.0); Calcium 9.1 mg/dL (8.4-10.2); Potassium 4.8 mmol/L (3.5-5.1); Total Bilirubin 0.5 mg/dL (0.2-1.3); Total Protein 6.1 g/dL (6.3-8.2)
--- NOTE | 2018-10-31 14:03 | ED ---
GI Bleed HPI - General Source: patient, RN notes reviewed, old records reviewed Mode of arrival: ambulatory Limitations: no limitations <Zoila Gallegos - Last Filed: 10/31/18 15:02> <Keith Frank - Last Filed: 10/31/18 15:14> - General Chief complaint: GI Bleed Stated complaint: GI bleed Time Seen by Provider: 10/31/18 13:12 - History of Present Illness Initial comments: Patient is a 68-year-old female presents emergency department today with intermittent left lower sided abdominal cramping pain, and 3 episodes of black and red diarrhea. Patient reports symptoms started yesterday 04/11/1929 and the evening. Patient states that she is not on any blood thinners. Patient states she's never had a colonoscopy. Patient states that she has no antibiotic use. Denies fevers. She denies any nausea or vomiting. (Zoila Gallegos) - Related Data Home Medications Medication Instructions Recorded Confirmed Atorvastatin [Lipitor] 40 mg PO HS 10/12/18 10/31/18 Cholecalciferol [Vitamin D3 (25 1,000 unit PO DAILY 10/12/18 10/31/18 Mcg = 1000 Iu)] FLUoxetine HCL [PROzac] 40 mg PO DAILY 10/12/18 10/31/18 Gabapentin [Neurontin] 200 mg PO TID 10/12/18 10/31/18 Oxybutynin Xl [Ditropan XL] 5 mg PO DAILY 10/12/18 10/31/18 Enalapril [Vasotec] 2.5 mg PO DAILY 10/30/18 10/31/18 Baclofen 5 mg PO TID PRN 10/31/18 10/31/18 Famotidine [Pepcid] 20 mg PO DAILY 10/31/18 10/31/18 Naproxen [Naprosyn] 500 mg PO BID 10/31/18 10/31/18 Allergies Allergy/AdvReac Type Severity Reaction Status Date / Time No Known Allergies Allergy Verified 10/31/18 13:19 Review of Systems ROS Other: All systems not noted in ROS Statement are negative. <Zoila Gallegos - Last Filed: 10/31/18 15:02> ROS Other: All systems not noted in ROS Statement are negative. <Keith Frank - Last Filed: 10/31/18 15:14> ROS Statement: Those systems with pertinent positive or pertinent negative responses have been documented in the HPI. Past Medical History Past Medical History: Hypertension, Osteoarthritis (OA) Additional Past Medical History / Comment(s): arthritis, chronic back pain, neuropathy- in back into right leg. History of Any Multi-Drug Resistant Organisms: None Reported Past Surgical History: Back Surgery, Joint Replacement Additional Past Surgical History / Comment(s): claudia to lower back. bilateral lens replacement, 2019- left knee replacement. Past Anesthesia/Blood Transfusion Reactions: No Reported Reaction Past Psychological History: Anxiety, Depression, Panic Disorder Smoking Status: Former smoker Past Alcohol Use History: Rare Past Drug Use History: Marijuana - Past Family History Mother Family Medical History: Dementia, Hypertension Father Family Medical History: Dementia <Zoila Gallegos - Last Filed: 10/31/18 15:02> General Exam Limitations: no limitations General appearance: alert, in no apparent distress Head exam: Present: atraumatic, normocephalic, normal inspection Eye exam: Present: normal appearance, PERRL, EOMI. Absent: scleral icterus, conjunctival injection, periorbital swelling ENT exam: Present: normal exam, mucous membranes moist Neck exam: Present: normal inspection. Absent: tenderness, meningismus, lymphadenopathy Respiratory exam: Present: normal lung sounds bilaterally. Absent: respiratory distress, wheezes, rales, rhonchi, stridor Cardiovascular Exam: Present: regular rate, normal rhythm, normal heart sounds. Absent: systolic murmur, diastolic murmur, rubs, gallop, clicks GI/Abdominal exam: Present: soft, tenderness (Left lower quadrant tenderness), normal bowel sounds. Absent: distended, guarding, rebound, rigid Rectal exam: Present: normal inspection, heme (+) stool (Patient has evidence of black stool in rectal vault. Evidence of one hemorrhoid that appears not be bleeding at this time.), black stool Extremities exam: Present: normal inspection, full ROM, normal capillary refill. Absent: tenderness, pedal edema, joint swelling, calf tenderness Back exam: Present: normal inspection Neurological exam: Present: alert, oriented X3, CN II-XII intact Psychiatric exam: Present: normal affect, normal mood Skin exam: Present: warm, dry, intact, normal color. Absent: rash <Zoila Gallegos - Last Filed: 10/31/18 15:02> - General Exam Comments Initial Comments: Alert and oriented 68-year-old male. No significant distress. (Zoila Gallegos) Course <Keith Frank - Last Filed: 10/31/18 15:14> Vital Signs 10/31/18 10/31/18 12:38 13:34 Temperature 98.1 F Pulse Rate 64 Respiratory 18 16 Rate Blood Pressure 97/65 126/54 O2 Sat by Pulse 95 98 Oximetry - Reevaluation(s) Reevaluation #1: 10/31/18 15:14 PA supervision: I proceeded [id number] evaluation the patient she does present with complaints of blood per rectum she does demonstrate a hemoglobin is within normal limits however it is more than a gram lower than her usual level. She does have elevated BUN consistent with a upper GI bleed. She will be admitted for further evaluation the case is discussed with Dr. Carmona. (Keith Frank) Medical Decision Making - Lab Data Result diagrams: 10/31/18 13:25 10/31/18 13:25 - Radiology Data Radiology results: report reviewed <ElZoila - Last Filed: 10/31/18 15:02> - Lab Data Result diagrams: 10/31/18 13:25 10/31/18 13:25 <Keith Frank - Last Filed: 10/31/18 15:14> - Medical Decision Making Patient is a 68-year-old female presents to return today for evaluation for some left-sided abdominal cramping pain, episodes of bright red and black combination of diarrhea like stools for the past 24 hours. Patient states rectal exam shows evidence of some black tarry stool. Occult was positive. Patient's hemoglobin is slightly decreased from her normal at 11.3. Her last lab value was 13. Patient BUN is elevated also consistent with GI bleed. She is given a dose of Protonix. CT of the pelvis is completed and shows evidence of colitis. Patient will be started on IV fluids Protonix, and will be admitted at this time for GI bleed. (Zoila Gallegos) - Lab Data Lab Results 10/31/18 10/31/18 10/31/18 Range/Units 13:15 13:25 13:25 WBC 10.9 H (3.8-10.6) k/uL RBC 4.24 (3.80-5.40) m/uL Hgb 11.9 (11.4-16.0) gm/dL Hct 38.3 (34.0-46.0) % MCV 90.4 (80.0-100.0) fL MCH 28.0 (25.0-35.0) pg MCHC 31.0 (31.0-37.0) g/dL RDW 16.4 H (11.5-15.5) % Plt Count 243 (150-450) k/uL Neutrophils % 80 % Lymphocytes % 9 % Monocytes % 7 % Eosinophils % 3 % Basophils % 0 % Neutrophils # 8.6 H (1.3-7.7) k/uL Lymphocytes # 1.0 (1.0-4.8) k/uL Monocytes # 0.7 (0-1.0) k/uL Eosinophils # 0.3 (0-0.7) k/uL Basophils # 0.0 (0-0.2) k/uL Anisocytosis Slight APTT (22.0-30.0) sec Sodium 138 (137-145) mmol/L Potassium 4.8 (3.5-5.1) mmol/L Chloride 103 (98-107) mmol/L Carbon Dioxide 27 (22-30) mmol/L Anion Gap 8 mmol/L BUN 38 H (7-17) mg/dL Creatinine 0.93 (0.52-1.04) mg/dL Est GFR (CKD-EPI)AfAm 73 (>60 ml/min/1.73 sqM) Est GFR (CKD-EPI)NonAf 63 (>60 ml/min/1.73 sqM) Glucose 107 H (74-99) mg/dL Plasma Lactic Acid Loc (0.7-2.0) mmol/L Calcium 9.1 (8.4-10.2) mg/dL Total Bilirubin 0.5 (0.2-1.3) mg/dL AST 13 L (14-36) U/L ALT 26 (9-52) U/L Alkaline Phosphatase 59 (38-126) U/L Troponin I (0.000-0.034) ng/mL Total Protein 6.1 L (6.3-8.2) g/dL Albumin 3.4 L (3.5-5.0) g/dL Stool Occult Blood (Negative) Blood Type Blood Type Confirm A Positive Blood Type Recheck Antibody Screen Spec Expiration Date 10/31/18 10/31/18 10/31/18 Range/Units 13:25 13:25 13:25 WBC (3.8-10.6) k/uL RBC (3.80-5.40) m/uL Hgb (11.4-16.0) gm/dL Hct (34.0-46.0) % MCV (80.0-100.0) fL MCH (25.0-35.0) pg MCHC (31.0-37.0) g/dL RDW (11.5-15.5) % Plt Count (150-450) k/uL Neutrophils % % Lymphocytes % % Monocytes % % Eosinophils % % Basophils % % Neutrophils # (1.3-7.7) k/uL Lymphocytes # (1.0-4.8) k/uL Monocytes # (0-1.0) k/uL Eosinophils # (0-0.7) k/uL Basophils # (0-0.2) k/uL Anisocytosis APTT 23.2 (22.0-30.0) sec Sodium (137-145) mmol/L Potassium (3.5-5.1) mmol/L Chloride (98-107) mmol/L Carbon Dioxide (22-30) mmol/L Anion Gap mmol/L BUN (7-17) mg/dL Creatinine (0.52-1.04) mg/dL Est GFR (CKD-EPI)AfAm (>60 ml/min/1.73 sqM) Est GFR (CKD-EPI)NonAf (>60 ml/min/1.73 sqM) Glucose (74-99) mg/dL Plasma Lactic Acid Loc 1.0 (0.7-2.0) mmol/L Calcium (8.4-10.2) mg/dL Total Bilirubin (0.2-1.3) mg/dL AST (14-36) U/L ALT (9-52) U/L Alkaline Phosphatase (38-126) U/L Troponin I <0.012 (0.000-0.034) ng/mL Total Protein (6.3-8.2) g/dL Albumin (3.5-5.0) g/dL Stool Occult Blood (Negative) Blood Type Blood Type Confirm Blood Type Recheck Antibody Screen Spec Expiration Date 10/31/18 10/31/18 Range/Units 13:25 13:37 WBC (3.8-10.6) k/uL RBC (3.80-5.40) m/uL Hgb (11.4-16.0) gm/dL Hct (34.0-46.0) % MCV (80.0-100.0) fL MCH (25.0-35.0) pg MCHC (31.0-37.0) g/dL RDW (11.5-15.5) % Plt Count (150-450) k/uL Neutrophils % % Lymphocytes % % Monocytes % % Eosinophils % % Basophils % % Neutrophils # (1.3-7.7) k/uL Lymphocytes # (1.0-4.8) k/uL Monocytes # (0-1.0) k/uL Eosinophils # (0-0.7) k/uL Basophils # (0-0.2) k/uL Anisocytosis APTT (22.0-30.0) sec Sodium (137-145) mmol/L Potassium (3.5-5.1) mmol/L Chloride (98-107) mmol/L Carbon Dioxide (22-30) mmol/L Anion Gap mmol/L BUN (7-17) mg/dL Creatinine (0.52-1.04) mg/dL Est GFR (CKD-EPI)AfAm (>60 ml/min/1.73 sqM) Est GFR (CKD-EPI)NonAf (>60 ml/min/1.73 sqM) Glucose (74-99) mg/dL Plasma Lactic Acid Loc (0.7-2.0) mmol/L Calcium (8.4-10.2) mg/dL Total Bilirubin (0.2-1.3) mg/dL AST (14-36) U/L ALT (9-52) U/L Alkaline Phosphatase (38-126) U/L Troponin I (0.000-0.034) ng/mL Total Protein (6.3-8.2) g/dL Albumin (3.5-5.0) g/dL Stool Occult Blood Positive H (Negative) Blood Type A Positive Blood Type Confirm Blood Type Recheck CABO Indicated Antibody Screen NEGATIVE Spec Expiration Date 11/03/2018 - 2325 - Radiology Data CT states sequelae for colitis diverticulosis pad megaly. Indeterminate subpleural pulmonary nodule. Follow-up is recommended. (Zoila Gallegos) Disposition Is patient prescribed a controlled substance at d/c from ED?: No Time of Disposition: 15:05 <Zoila Gallegos - Last Filed: 10/31/18 15:02> <Keith Frank - Last Filed: 10/31/18 15:14> Clinical Impression: GI bleed, Colitis Disposition: ADMITTED IP TO THIS HOSP Condition: Stable Instructions (If sedation given, give patient instructions): Gastrointestinal Bleeding (ED) Referrals: Benny Barbosa MD [Primary Care Provider] - 1-2 days
--- NOTE | 2018-10-31 14:49 | CT ---
EXAMINATION TYPE: CT abdomen pelvis w con DATE OF EXAM: 10/31/2018 COMPARISON: None HISTORY: Back pain and Rectal bleeding. CT DLP: 1711.5 mGycm Automated exposure control for dose reduction was used. TECHNIQUE: Helical acquisition of images from the lung bases through the pelvis have been completed. CONTRAST: Performed without Oral Contrast and with IV Contrast, patient injected with 100 mL of Isovue 300. FINDINGS: Coronary artery calcifications are present, there is mitral annular calcification. LUNG BASES: Subpleural nodular density present in the left lower lobe on axial image 6 is subcentimet er in size and may be postinflammatory but is indeterminate, no pleural or pericardial effusion. AORTA: No aorta is dense but not aneurysmal. LIVER/GB: Liver is enlarged. Gallbladder is normal. PANCREAS: No significant abnormality is seen. SPLEEN: No significant abnormality is seen. ADRENALS: No significant abnormality is seen. KIDNEYS: Cortical cysts are present bilaterally. Largest on the left measures approximately 2.7 cm REPRODUCTIVE ORGANS: No significant abnormality is seen BOWEL: There is extensive diverticular change associated with the colon. Some colonic wall thickenin g is suspected distally. FREE AIR: No Free Air visible. ASCITES: None visible. PELVIC ADENOPATHY: None visualized. RETROPERITONEAL ADENOPATHY: No Retroperitoneal Adenopathy visible. URINARY BLADDER: No significant abnormality is seen. OSSEOUS STRUCTURES: Postop changes are present at the lumbosacral spine status post posterior fusion and multilevel laminectomy. IMPRESSION: CORRELATE FOR COLITIS. DIVERTICULOSIS. HEPATOMEGALY. INDETERMINATE SUBPLEURAL PULMONARY NODULE, FOLLO W-UP RECOMMENDED.
[2018-10-31] MEDS ORDERED: ONDANSETRON 4 MG/2 ML VIAL IVP PRN (15:06)
[2018-10-31] MEDS ORDERED: NALOXONE 0.4 MG/ML 1 ML VIAL IV PRN (15:06)
[2018-10-31] MEDS ORDERED: ACETAMINOPHEN TAB 325 MG TAB PO PRN (15:06)
[2018-10-31] MEDS: MORPHINE SULFATE 4 MG/ML SYRINGE IVP PRN (15:59)
[2018-10-31] MEDS: SODIUM CHLORIDE 0.9% 1,000 ML IV SCH (16:04)
[2018-10-31 16:44] VITALS: BMI 37.0
[2018-10-31 18:38] LABS: Appearance,Urine Clear (Clear); Bacteria,Urine Rare /hpf; Bilirubin,Urine Negative (Negative); Blood,Urine Negative (Negative); Color,Urine Colorless; Glucose,Urine (UA) Negative (Negative); Ketones,Urine Negative (Negative); Leukocyte Esterase,Urine Small (Negative); Nitrite,Urine Negative (Negative); PH, Urine 5.5 (5.0-8.0); Protein,Urine Negative (Negative); Specific Gravity,Urine 1.006 (1.001-1.035); Urobilinogen,Urine <2.0 mg/dL (<2.0)
[2018-10-31] MEDS: PANTOPRAZOLE 40 MG/10 ML VIAL IV SCH (19:35)
[2018-10-31] MEDS: GABAPENTIN 100 MG CAP PO SCH (19:36)
[2018-10-31] MEDS: OXYBUTYNIN XL 5 MG TAB.ER.24 PO SCH (19:36)
[2018-10-31] MEDS: FLUoxetine HCL 20 MG CAP PO SCH (19:36)
[2018-10-31] MEDS: ATORVASTATIN 40 MG TAB PO SCH (19:36)
[2018-10-31] MEDS: FAMOTIDINE 20 MG TAB PO SCH (19:36)
[2018-10-31] MEDS: LISINOPRIL 5 MG TAB PO SCH (19:36)
[2018-10-31 19:53] LABS: Anisocytosis Slight; Basophils % (A) 0 %; Eosinophils # (A) 0.2 k/uL (0-0.7); Eosinophils % (A) 3 %; HCT 35.2 % (34.0-46.0); HGB 10.8 gm/dL (11.4-16.0); Hypochromasia Moderate; Lymphocytes # (A) 1.3 k/uL (1.0-4.8); Lymphocytes % (A) 17 %; MCH 28.8 pg (25.0-35.0); MCHC 30.7 g/dL (31.0-37.0); MCV 93.9 fL (80.0-100.0); Mean Platelet Volume 7.6; Monocytes # (A) 0.5 k/uL (0-1.0); Monocytes % (A) 7 %; Neutrophils # (A) 5.6 k/uL (1.3-7.7); Neutrophils % (A) 71 %; Platelet Count 190 k/uL (150-450); RBC 3.75 m/uL (3.80-5.40); RDW 16.5 % (11.5-15.5); WBC 7.8 k/uL (3.8-10.6)
--- NOTE | 2018-10-31 22:19 | P.HPIM ---
History of Present Illness H&P Date: 10/31/18 Chief Complaint: Bloody stool History of presenting complaint: This is a very pleasant 68-year-old patient of Dr. Barbosa. Chronic stable medical conditions include hypertension, obesity, anxiety, depression, chronic low back pain from multiple reasons radiculopathy from arthritis, anxiety depression. Patient around 1:30 this morning started having bloody stools and the other episode of 5:30 this morning and then again at 10:30 AM. There were 3 bloody large bloody episodes that followed by dark stools. Patient decided to come down to the ER. No further episodes since then. Also has abdominal discomfort. No nausea vomiting. Does feel tired and rundown. Patient had been taking naproxen. On recent admission she was seen by Dr. Frye from orthopedic spine. Review of systems: GEN.: Tired EYES: None HEENT: Decreased hearing NECK: None RESPIRATORY: None CARDIOVASCULAR: None GASTROINTESTINAL: None GENITOURINARY: None MUSCULOSKELETAL: Chronic low back pain LYMPHATICS: None HEMATOLOGICAL: None PSYCHIATRY: None NEUROLOGICAL: Anxiety controlled past medical history to include: Chronic low back pain from spinal stenosis with radiculopathy, essential hyperte nsion, obesity, anxiety depression Social history: Patient does smoke in the past. Alcohol rarely. Does use CBD oral daily Family history: Dementia, hypertension Physical examination: VITAL SIGNS: 98.1, 64, 18, 126.54, 98% room air GENERAL: BMI 37.1, laying in bed, tired appearing. EYES: [Pupils equal. Conjunctiva pale l. HEENT: External appearance of nose and ears normal, oral cavity grossly normal. NECK: JVD not raised; masses not palpable. HEART: First and second heart sounds are normal; no edema. LUNGS: Respiratory rate normal; decreased breath sounds. ABDOMEN: Soft, nontender, liver spleen not palpable, no masses palpable. PSYCH: Alert and oriented x3; mood and affect normal. NEUROLOGICAL: Cranial nerves grossly intact; no facial asymmetry, power and sensation grossly intact. LYMPHATICS: No lymph nodes palpable in the axilla and neck INVESTIGATIONS, reviewed in the clinical context: White count 10.9 hemoglobin 11.9 repeat 10.8 it was 13.2 on October 12 potassium 4.8 creatinine 0.93 Assessment: -Acute upper GI P suspected from patient taking NSAIDs computed tomography scan of the abdomen shows extensive diverticular change with colonic wall thickening. -Colonic diverticulosis, cannot rule out diverticulitis -Chronic low back pain from spinal stenosis and arthritis with radiculopathy -Essential hypertension -Obesity BMI 37.1 -Anxiety depression otherwise specified Plan: GI was consulted. NSAIDs were held. We'll give PPI. H&H will be followed closely.. Care was discussed with the patient. We'll put on clear liquids. Patient will need at least 2 nights stay the hospital Past Medical History Past Medical History: Hypertension, Osteoarthritis (OA) Additional Past Medical History / Comment(s): arthritis, chronic back pain, neuropathy- in back into right leg. History of Any Multi-Drug Resistant Organisms: None Reported Past Surgical History: Back Surgery, Joint Replacement Additional Past Surgical History / Comment(s): claudia to lower back. bilateral lens replacement, 2019- left knee replacement. Past Anesthesia/Blood Transfusion Reactions: No Reported Reaction Past Psychological History: Anxiety, Depression, Panic Disorder Additional Psychological History / Comment(s): recently started having panic attacks- large crowds. Smoking Status: Former smoker Past Alcohol Use History: Rare Past Drug Use History: Marijuana Additional Drug Use History / Comment(s): CBD OIL DAILY - Past Family History Mother Family Medical History: Dementia, Hypertension Father Family Medical History: Dementia Medications and Allergies Home Medications Medication Instructions Recorded Confirmed Type Atorvastatin [Lipitor] 40 mg PO HS 10/12/18 10/31/18 History Cholecalciferol [Vitamin D3 (25 1,000 unit PO DAILY 10/12/18 10/31/18 History Mcg = 1000 Iu)] FLUoxetine HCL [PROzac] 40 mg PO DAILY 10/12/18 10/31/18 History Gabapentin [Neurontin] 200 mg PO TID 10/12/18 10/31/18 History Oxybutynin Xl [Ditropan XL] 5 mg PO DAILY 10/12/18 10/31/18 History Enalapril [Vasotec] 2.5 mg PO DAILY 10/30/18 10/31/18 History Baclofen 5 mg PO TID PRN 10/31/18 10/31/18 History Famotidine [Pepcid] 20 mg PO DAILY 10/31/18 10/31/18 History Naproxen [Naprosyn] 500 mg PO BID 10/31/18 10/31/18 History Allergies Allergy/AdvReac Type Severity Reaction Status Date / Time No Known Allergies Allergy Verified 10/31/18 13:19 Physical Exam Vitals: Vital Signs Temp Pulse Pulse Resp BP BP Pulse Ox 10/31/18 20:00 16 10/31/18 16:39 97.3 F L 72 16 168/58 99 10/31/18 13:34 16 126/54 98 10/31/18 12:38 98.1 F 64 18 97/65 95 Intake and Output 10/31/18 10/31/18 10/31/18 06:59 14:59 22:59 Other: Voiding Method Toilet Weight 101.151 kg Results CBC & Chem 7: 10/31/18 19:24 10/31/18 13:25 Labs: Abnormal Lab Results - Last 24 Hours (Table) 10/31/18 10/31/18 10/31/18 Range/Units 13:25 13:25 13:37 WBC 10.9 H (3.8-10.6) k/uL RBC (3.80-5.40) m/uL Hgb (11.4-16.0) gm/dL MCHC (31.0-37.0) g/dL RDW 16.4 H (11.5-15.5) % Neutrophils # 8.6 H (1.3-7.7) k/uL BUN 38 H (7-17) mg/dL Glucose 107 H (74-99) mg/dL AST 13 L (14-36) U/L Total Protein 6.1 L (6.3-8.2) g/dL Albumin 3.4 L (3.5-5.0) g/dL Ur Leukocyte Esterase (Negative) Urine Bacteria (None) /hpf Stool Occult Blood Positive H (Negative) 10/31/18 10/31/18 Range/Units 18:23 19:24 WBC (3.8-10.6) k/uL RBC 3.75 L (3.80-5.40) m/uL Hgb 10.8 L (11.4-16.0) gm/dL MCHC 30.7 L (31.0-37.0) g/dL RDW 16.5 H (11.5-15.5) % Neutrophils # (1.3-7.7) k/uL BUN (7-17) mg/dL Glucose (74-99) mg/dL AST (14-36) U/L Total Protein (6.3-8.2) g/dL Albumin (3.5-5.0) g/dL Ur Leukocyte Esterase Small H (Negative) Urine Bacteria Rare H (None) /hpf Stool Occult Blood (Negative) Thrombosis Risk Factor Assmnt - Choose All That Apply Any of the Below Risk Factors Present?: Yes Each Factor Represents 1 point: Obesity (BMI >25) Other Risk Factors: Yes Each Risk Factor Represents 2 Points: Age 61-74 years Thrombosis Risk Factor Assessment Total Risk Factor Score: 3 Thrombosis Risk Factor Assessment Level: Moderate Risk
[2018-11-01] MEDS: SODIUM CHLORIDE 0.9% 1,000 ML IV SCH ×2 (02:13→15:44)
[2018-11-01] MEDS: MORPHINE SULFATE 4 MG/ML SYRINGE IVP PRN ×2 (04:51→15:47)
[2018-11-01] MEDS: BACLOFEN 10 MG TAB PO PRN ×2 (06:19→23:23)
[2018-11-01 06:33] LABS: Anisocytosis Slight; Basophils % (A) 1 %; Eosinophils # (A) 0.3 k/uL (0-0.7); Eosinophils % (A) 4 %; HCT 34.1 % (34.0-46.0); HGB 10.3 gm/dL (11.4-16.0); Hypochromasia Moderate; Lymphocytes # (A) 1.3 k/uL (1.0-4.8); Lymphocytes % (A) 19 %; MCH 27.8 pg (25.0-35.0); MCHC 30.2 g/dL (31.0-37.0); Mean Platelet Volume 7.1; Monocytes # (A) 0.5 k/uL (0-1.0); Monocytes % (A) 8 %; Neutrophils # (A) 4.5 k/uL (1.3-7.7); Neutrophils % (A) 66 %; Platelet Count 192 k/uL (150-450); RDW 16.2 % (11.5-15.5); WBC 6.7 k/uL (3.8-10.6)
[2018-11-01 06:53] LABS: ALT 23 U/L (9-52); AST 12 U/L (14-36); African American GFR (CKD) >90 (>60 ml/min/1.73 sqM); Albumin 2.8 g/dL (3.5-5.0); Alkaline Phosphatase 49 U/L (38-126); Anion Gap 4 mmol/L; Blood Urea Nitrogen 21 mg/dL (7-17); Calcium 8.6 mg/dL (8.4-10.2); Carbon Dioxide 26 mmol/L (22-30); Chloride 110 mmol/L (98-107); Glucose 81 mg/dL (74-99); Potassium 4.3 mmol/L (3.5-5.1); Sodium 140 mmol/L (137-145); Total Bilirubin 0.6 mg/dL (0.2-1.3); Total Protein 5.2 g/dL (6.3-8.2)
[2018-11-01] MEDS: LISINOPRIL 5 MG TAB PO SCH (08:19)
[2018-11-01] MEDS: GABAPENTIN 100 MG CAP PO SCH ×3 (08:19→20:59)
[2018-11-01] MEDS: FAMOTIDINE 20 MG TAB PO SCH (08:19)
[2018-11-01] MEDS: CHOLECALCIFEROL 1,000 UNIT TAB PO SCH (08:19)
[2018-11-01] MEDS: OXYBUTYNIN XL 5 MG TAB.ER.24 PO SCH (08:19)
[2018-11-01] MEDS: FLUoxetine HCL 20 MG CAP PO SCH (08:19)
[2018-11-01] MEDS: PANTOPRAZOLE 40 MG/10 ML VIAL IV SCH ×2 (08:20→20:59)
--- NOTE | 2018-11-01 14:35 | P.PN ---
Progress Note - Text Progress Note Date: 11/01/18 Chief Complaint: Bloody stool History of presenting complaint: This is a very pleasant 68-year-old patient of Dr. Barbosa. Chronic stable medical conditions include hypertension, obesity, anxiety, depression, chronic low back pain from multiple reasons radiculopathy from arthritis, anxiety depression. Patient around 1:30 this morning started having bloody stools and the other episode of 5:30 this morning and then again at 10:30 AM. There were 3 bloody large bloody episodes that followed by dark stools. Patient decided to come down to the ER. No further episodes since then. Also has abdominal discomfort. No nausea vomiting. Does feel tired and rundown. Patient had been taking naproxen. On recent admission she was seen by Dr. Frye from orthopedic spine. Today-no further episodes of bleeding. No abdominal pain. Laying in bed. A bit tired. Possible endoscopy tomorrow. Review of systems: Was done for constitutional, cardiovascular, GI, pulmonary. relevant finding as above Active Medications Acetaminophen (Tylenol Tab) 650 mg PO Q6HR PRN PRN Reason: Mild Pain or Fever > 100.5 Atorvastatin Calcium (Lipitor) 40 mg PO HS [facility] Last Admin: 10/31/18 19:36 Dose: 40 mg Documented by: Baclofen (Lioresal) 5 mg PO TID PRN PRN Reason: Muscle Pain Last Admin: 11/01/18 06:19 Dose: 5 mg Documented by: Cholecalciferol (Vitamin D3 (25 Mcg = 1000 Iu)) 1,000 unit PO DAILY [facility] Last Admin: 11/01/18 08:19 Dose: 1,000 unit Documented by: Famotidine (Pepcid) 20 mg PO DAILY [facility] Last Admin: 11/01/18 08:19 Dose: 20 mg Documented by: Fluoxetine HCl (Prozac) 40 mg PO DAILY [facility] Last Admin: 11/01/18 08:19 Dose: 40 mg Documented by: Gabapentin (Neurontin) 200 mg PO TID [facility] Last Admin: 11/01/18 08:19 Dose: 200 mg Documented by: Sodium Chloride (Saline 0.9%) 1,000 mls @ 100 mls/hr IV .Q10H [facility] Last Admin: 11/01/18 02:13 Dose: 100 mls/hr Documented by: Lisinopril (Zestril) 5 mg PO DAILY [facility] Last Admin: 11/01/18 08:19 Dose: 5 mg Documented by: Morphine Sulfate (Morphine Sulfate (Inj)) 4 mg IVP Q4HR PRN PRN Reason: Pain Last Admin: 11/01/18 04:51 Dose: 4 mg Documented by: Naloxone HCl (Narcan) 0.2 mg IV Q2M PRN PRN Reason: Opioid Reversal Ondansetron HCl (Zofran) 4 mg IVP Q8HR PRN PRN Reason: Nausea And Vomiting Oxybutynin Chloride (Ditropan Xl) 5 mg PO DAILY [facility] Last Admin: 11/01/18 08:19 Dose: 5 mg Documented by: Pantoprazole Sodium (Protonix) 40 mg IV BID [facility] Last Admin: 11/01/18 08:20 Dose: 40 mg Documented by: Physical examination: VITAL SIGNS: r afebrile, 58, 16, 130/62, 100% room air GENERAL: Laying in bed, awake. EYES: [Pupils equal. Conjunctiva pale l. HEENT: External appearance of nose and ears normal, oral cavity grossly normal. NECK: JVD not raised; masses not palpable. HEART: First and second heart sounds are normal; no edema. LUNGS: Respiratory rate normal; decreased breath sounds. ABDOMEN: Soft, nontender, liver spleen not palpable, no masses palpable. PSYCH: Alert and oriented x3; mood and affect normal. INVESTIGATIONS, reviewed in the clinical context: Hemoglobin 10.3 creatinine 0.73 Assessment: -Acute upper GI P suspected from patient taking NSAIDs computed tomography scan of the abdomen shows extensive diverticular change with colonic wall thickening. -Colonic diverticulosis, cannot rule out diverticulitis -Chronic low back pain from spinal stenosis and arthritis with radiculopathy -Essential hypertension -Obesity BMI 37.1 -Anxiety depression otherwise specified Plan: Continue with PPI. Follow H&H. Possible endoscopy tomorrow. Care was discussed with the patient. aryan
--- NOTE | 2018-11-01 15:11 | CONS ---
CONSULTATION REQUESTING PHYSICIAN: Dr. Carmona and Dr. Barbosa REASON FOR CONSULTATION: Acute gastrointestinal bleed. HISTORY OF PRESENT ILLNESS: The patient is a 68-year-old pleasant white female who came into the emergency room yesterday afternoon complaining of multiple episodes of maroon-colored stools. She had at least 3 or 4 episodes that happen on night and subsequently came into the emergency room and admitted to the hospital for further evaluation. She thinks that initially the bowel movements were maroon-colored and subsequently became black and tarry. She denies any abdominal pain. No nausea, vomiting. Never had these symptoms in the past. In the emergency room, was noted to have a hemoglobin of 10.5 g/dL. Since being in the hospital, she did not have any further episodes of bleeding. She was taking some Aleve for the last few days for chronic back pain. No prior history of peptic ulcer disease. PAST MEDICAL HISTORY: Significant for chronic back pain, hypertension. PAST SURGICAL HISTORY: Back surgery, bilateral cataract surgery, left knee replacement. MEDICATIONS: At home include Lipitor, Prozac, Neurontin, Ditropan, Vasotec, Pepcid, naproxen, baclofen, vitamin D3. ALLERGIES: None. SOCIAL HISTORY: No smoking. No alcohol use. FAMILY HISTORY: Mother had dementia. Father had dementia. REVIEW OF SYSTEMS: CARDIOPULMONARY: No chest pain or shortness of breath. GENITOURINARY: No dysuria or hematuria. SKIN: Unremarkable. ENDOCRINE: Unremarkable. PSYCHIATRIC: Unremarkable. NEUROLOGY: Unremarkable. ENT/VISION: Unremarkable. MUSCULOSKELETAL: Chronic back pain. CONSTITUTIONAL: No recent weight loss. No fever, chills, night sweats. HEMATOLOGY: Unremarkable. PHYSICAL EXAMINATION: She appears comfortable. No apparent distress. Vital signs are stable. Blood pressure is 138/61, pulse is 65, temperature 98.3. HEENT: Examination unremarkable. Conjunctivae pink, sclerae anicteric. Oral cavity, no lesions. No jugular venous distention or lymph node enlargement. CHEST: Clear to auscultation. HEART: Regular rate and rhythm. ABDOMEN: Soft. Bowel sounds are positive. No organomegaly. EXTREMITIES: No pedal edema. SKIN: No rashes. NEUROLOGIC: Alert and oriented x3. No focal deficits. LABS: Yesterday, WBC 10.9, hemoglobin 11.9, platelets are normal. PT/INR is normal. Today hemoglobin is 10.3. BUN is 39, creatinine 0.9. ALT, AST, T bilirubin, alkaline phosphatase are within normal limits. Stool occult blood was positive. She had a CT of the abdomen and pelvis done in the emergency room that showed evidence of diverticulosis and hepatomegaly. IMPRESSION: This is a lady who presents to the hospital with multiple episodes of maroon-colored stools that happened on night and subsequently turned black and tarry in color. Hemoglobin was 11.9, dropped to 10.3 g/dL. Since being in the hospital she did not have any further episodes of bleeding. She was taking naproxen for chronic back pain for the last few days, which she was also noted to have elevated BUN and all of this is very suggestive of an upper GI source of bleeding. The patient is hemodynamically stable and clinically no active bleeding in the last 12 hours. Hemoglobin 10.6 g/dL. RECOMMENDATIONS: 1. Clear liquid diet. 2. Continue with IV Protonix 40 mg q.12 hours. 3. Proceed with an upper endoscopy tomorrow morning. I discussed with the patient risks, benefits and complications of the procedure and she is agreeable to it. 4. Avoid NSAIDs. Thank you for this consultation. We will follow the patient closely during the hospital stay. MMODL / IJN: [id number] /
[2018-11-01] MEDS: ATORVASTATIN 40 MG TAB PO SCH (20:59)
[2018-11-02] MEDS: SODIUM CHLORIDE 0.9% 1,000 ML IV SCH ×2 (03:24→09:18)
[2018-11-02] MEDS ORDERED: LIDOCAINE 1% INJ 10MG/ML (20 ML MDV) ONE (07:53)
[2018-11-02] MEDS ORDERED: PROPOFOL 10 MG/ML 20 ML VIAL IV ONE (07:53)
[2018-11-02] MEDS ORDERED: IV FLUID CONTINUATION 1,000 ML IV ONE ×2 (07:54)
--- NOTE | 2018-11-02 08:14 | P.PCN ---
Date of Procedure: 11/02/18 Procedure(s) Performed: BRIEF HISTORY: Patient is a 68-year-old, pleasant, female, scheduled for an upper endoscopy for evaluation of multiple episodes of maroon-colored stools of 1 day duration. Dropped in hemoglobin from 12-10 g/dL. Was taking Aleve for the last few days for chronic back pain.. PROCEDURE PERFORMED: Esophagogastroduodenoscopy with biopsy. PREOPERATIVE DIAGNOSIS: Acute GI bleed. IV sedation per anesthesia. PROCEDURE: After informed consent was obtained, the patient was brought into the endoscopy unit. IV sedation was administered by Anesthesia under continuous monitoring. Initially the Olympus GIF-140 video endoscope was inserted into the mouth. Esophagus intubated without any difficulty. It was gradually advanced into the stomach and duodenum and carefully examined. The bulb and the second part of the duodenum appeared normal. Mild duodenitis noted. The scope at this time was withdrawn to the stomach, adequately insufflated with air, and upon careful examination, mucosa of the antrum, had multiple superficial erosions and superficial ulcerations measuring between 3-5 mm in size with no active bleeding. Biopsies were done from this area. body, cardia and the fundus appeared normal. The scope was then withdrawn into the esophagus. The GE junction was located at 39 cm from the incisors. The esophagus appeared normal. There were no erosions or ulcerations seen and the patient tolerated the procedure well. IMPRESSION: 1. Multiple superficial antral ulcers all measuring between 3-5 mm in size with no active bleeding. 2. Mild gastritis and duodenitis. RECOMMENDATIONS: The findings of this examination were discussed with the patient. She'll be continued on Protonix 40 mg twice daily and diet will be advanced as tolerated. Await biopsy results.
[2018-11-02 09:12] LABS: Anisocytosis Slight; Basophils % (A) 1 %; Eosinophils # (A) 0.2 k/uL (0-0.7); Eosinophils % (A) 4 %; HCT 33.1 % (34.0-46.0); HGB 10.3 gm/dL (11.4-16.0); Hypochromasia Moderate; Lymphocytes % (A) 19 %; MCH 29.2 pg (25.0-35.0); Mean Platelet Volume 7.4; Monocytes # (A) 0.4 k/uL (0-1.0); Monocytes % (A) 8 %; Neutrophils # (A) 3.4 k/uL (1.3-7.7); Neutrophils % (A) 66 %; Platelet Count 193 k/uL (150-450); RBC 3.52 m/uL (3.80-5.40); WBC 5.1 k/uL (3.8-10.6)
[2018-11-02] MEDS: MORPHINE SULFATE 4 MG/ML SYRINGE IVP PRN (09:16)
[2018-11-02] MEDS: PANTOPRAZOLE 40 MG/10 ML VIAL IV SCH (09:16)
[2018-11-02] MEDS: FAMOTIDINE 20 MG TAB PO SCH (09:17)
[2018-11-02] MEDS: GABAPENTIN 100 MG CAP PO SCH ×3 (09:17→23:13)
[2018-11-02] MEDS: CHOLECALCIFEROL 1,000 UNIT TAB PO SCH (09:17)
[2018-11-02] MEDS: FLUoxetine HCL 20 MG CAP PO SCH (09:18)
[2018-11-02] MEDS: LISINOPRIL 5 MG TAB PO SCH (09:18)
[2018-11-02] MEDS: OXYBUTYNIN XL 5 MG TAB.ER.24 PO SCH (09:18)
--- NOTE | 2018-11-02 14:51 | P.PN ---
Progress Note - Text Progress Note Date: 11/02/18 Chief Complaint: Bloody stool History of presenting complaint: This is a very pleasant 68-year-old patient of Dr. Barbosa. Chronic stable medical conditions include hypertension, obesity, anxiety, depression, chronic low back pain from multiple reasons radiculopathy from arthritis, anxiety depression. Patient around 1:30 this morning started having bloody stools and the other episode of 5:30 this morning and then again at 10:30 AM. There were 3 bloody large bloody episodes that followed by dark stools. Patient decided to come down to the ER. No further episodes since then. Also has abdominal discomfort. No nausea vomiting. Does feel tired and rundown. Patient had been taking naproxen. On recent admission she was seen by Dr. Frye from orthopedic spine. Today-EGD today. Showed multiple gastric ulcers. Diet was started. No further bowel movement. Review of systems: Was done for constitutional, cardiovascular, GI, pulmonary. relevant finding as above Physical examination: VITAL SIGNS: 97.5, 71, 16, 1 28 x 60, 98% room air GENERAL: Laying in bed, comfortable EYES: [Pupils equal. Conjunctiva pale l. HEENT: External appearance of nose and ears normal, oral cavity grossly normal. NECK: JVD not raised; masses not palpable. HEART: First and second heart sounds are normal; no edema. LUNGS: Respiratory rate normal; decreased breath sounds. ABDOMEN: Soft, nontender, liver spleen not palpable, no masses palpable. PSYCH: Alert and oriented x3; mood and affect normal. INVESTIGATIONS, reviewed in the clinical context: White count 5.1 hemoglobin 10.3 EGD-multiple superficial antral ulcers measuring between 3-5 mm with no active bleeding Mild gastritis and duodenitis Assessment: -Acute upper GI BLEED from patient taking NSAIDs, causing multiple superficial gastric antral ulcers -Colonic diverticulosis, -Chronic low back pain from spinal stenosis and arthritis with radiculopathy -Essential hypertension -Obesity BMI 37.1 -Anxiety depression otherwise specified Plan: Diet was resumed. And advanced. Remains stable. DC tomorrow. Care was discussed with the patient. Results discussed.
[2018-11-02] MEDS: PANTOPRAZOLE 40 MG TABLET PO SCH (16:29)
[2018-11-02] MEDS: ATORVASTATIN 40 MG TAB PO SCH (23:13)
[2018-11-03 03:05] VITALS: RESP 18
[2018-11-03] MEDS: PANTOPRAZOLE 40 MG TABLET PO SCH (07:02)
[2018-11-03] MEDS: LISINOPRIL 5 MG TAB PO SCH (08:36)
[2018-11-03] MEDS: CHOLECALCIFEROL 1,000 UNIT TAB PO SCH (08:36)
[2018-11-03] MEDS: OXYBUTYNIN XL 5 MG TAB.ER.24 PO SCH (08:36)
[2018-11-03] MEDS: FLUoxetine HCL 20 MG CAP PO SCH (08:36)
[2018-11-03] MEDS: GABAPENTIN 100 MG CAP PO SCH (08:36)
--- NOTE | 2018-11-03 10:03 | P.PN ---
Subjective Progress Note Date: 11/03/18 Principal diagnosis: GI bleeding Resting comfortably. Status post EGD yesterday findings of multiple superficial antral ulcers without active bleeding mild gastritis duodenitis. Denies hematemesis hematochezia or melena. Hemoglobin yesterday stable 10.3. Tolerating advance diet. Objective - Vital Signs Vital signs: Vital Signs Temp 98.5 F 11/03/18 08:00 Pulse 70 11/03/18 08:00 Resp 18 11/03/18 08:00 BP 120/56 11/03/18 08:00 Pulse Ox 98 11/03/18 00:00 Intake & Output 11/02/18 11/03/18 11/03/18 18:59 06:59 18:59 Intake Total 702 120 Output Total 1200 1200 Balance -498 -1200 120 Weight 102.7 kg Intake: IV 50 Oral 652 120 Output: Urine 1200 1200 Other: Voiding Method Toilet Toilet # Voids 1 1 - Exam General appearance: The patient is alert, oriented, in no acute distress. HET: Head is normocephalic and atraumatic. Pupils are equal and reactive. Oropharynx is clear without lesions. Neck: Supple without lymphadenopathy. Trachea midline. Heart: S1 S2. Regular rate and rhythm. Lungs: No crackles or wheezes are heard. Abdomen: Soft, nontender, nondistended with bowel sounds. No peritoneal signs. No palpable organomegaly or masses. Extremities: Normal skin color and turgor. No cyanosis, rash, ulceration, clubbing, or edema. Radial and pedal pulses are 2/4 bilaterally. Neurological: No focal deficits. Strength and sensation are grossly intact.m - Labs CBC & Chem 7: 11/02/18 08:40 11/01/18 05:46 Assessment and Plan (1) Antral ulcer Current Visit: Yes Status: Acute Code(s): K25.9 - GASTRIC ULCER, UNSP ACUTE OR CHRONIC, W/O HEMOR OR PERF SNOMED Code(s): 5055564322718 (2) Patient takes NSAID (non-steroid anti-inflammatory drug) Current Visit: Yes Status: Acute Code(s): Z79.1 - CHEESE COOK (CURRENT) USE OF NON-STEROIDAL NON-INFLAM (NSAID) SNOMED Code(s): 288958920 (3) GI bleed Current Visit: Yes Status: Acute Code(s): K92.2 - GASTROINTESTINAL H EMORRHAGE, UNSPECIFIED SNOMED Code(s): 02521932 Plan: 1. Discharge per medicine. Return office in 3-4 weeks. Avoid NSAIDs. Protonix 40 mg daily on discharge. Assessment and plan a care discussed with Dr. Hope
[2018-11-03 11:45] VITALS: BP 144/63; PULSE 63; TEMP 98.2
[2018-11-03] MEDS: SODIUM CHLORIDE 0.9% 1,000 ML IV SCH (11:48)
[2018-11-03 12:05] LABS: Glucose,Whole Blood 100 mg/dL (75-99)
--- NOTE | 2018-11-04 | P.DS ---
Providers Date of admission: 10/31/18 22:20 Expected date of discharge: 11/03/18 Attending physician: Joe Carmona Consults: 10/31/18 15:06 Consult Physician Stat Consulting Provider: Brii Hope Consult Reason/Comments: GI bleed, colitis Do you want consulting provider notified?: Yes Primary care physician: Benny Barbosa Hospital Course: Hospital course: This is a very pleasant 68-year-old patient of Dr. Barbosa. Chronic stable medical conditions include hypertension, obesity, anxiety, depression, chronic low back pain from multiple reasons radiculopathy from arthritis, anxiety depression. Patient around 1:30 this morning started having bloody stools and the other episode of 5:30 this morning and then again at 10:30 AM. There were 3 bloody large bloody episodes that followed by dark stools. Patient decided to come down to the ER. No further episodes since then. Also has abdominal discomfort. No nausea vomiting. Does feel tired and rundown. Patient had been taking naproxen. On recent admission she was seen by Dr. Frye from orthopedic spine. EGD just show multiple gastric superficial ulcers. Kress to be from NSAIDs. Her diet was advanced. No further bleeding. Hemoglobin stable. Today-care was discussed at length with the patient. Questions were answered. Results were discussed. Discussion and discharge planning more than 35 minutes Consultation: Dr. Charbel Hope from GI Physical examination: VITAL SIGNS: 98.5, 70, 18, 1 20 x 56, 97% room air GENERAL: Sitting up, comfortable EYES: [Pupils equal. Conjunctiva pale l. HEENT: External appearance of nose and ears normal, oral cavity grossly normal. NECK: JVD not raised; masses not palpable. HEART: First and second heart sounds are normal; no edema. LUNGS: Respiratory rate normal; decreased breath sounds. ABDOMEN: Soft, nontender, liver spleen not palpable, no masses palpable. PSYCH: Alert and oriented x3; mood and affect normal. INVESTIGATIONS, reviewed in the clinical context: Hemoglobin 10.3 EGD-multiple superficial antral ulcers measuring between 3-5 mm with no active bleeding Mild gastritis and duodenitis Assessment: -Acute upper GI BLEED from patient taking NSAIDs, causing multiple superficial gastric antral ulcers -Acute blood loss anemia from GI bleed -Colonic diverticulosis, -Chronic low back pain from spinal stenosis and arthritis with radiculopathy -Essential hypertension -Obesity BMI 37.1 -Anxiety depression otherwise specified Disposition: Home Patient Condition at Discharge: Stable Plan - Discharge Summary Discharge Rx Participant: No New Discharge Prescriptions: New Omeprazole [PriLOSEC] 40 mg PO BID #60 capsule. Acetaminophen Tab [Tylenol] 650 mg PO Q6HR PRN tab PRN Reason: Mild Pain Or Fever > 100.5 Continue Cholecalciferol [Vitamin D3 (25 Mcg = 1000 Iu)] 1,000 unit PO DAILY Oxybutynin Xl [Ditropan XL] 5 mg PO DAILY Gabapentin [Neurontin] 200 mg PO TID FLUoxetine HCL [PROzac] 40 mg PO DAILY Atorvastatin [Lipitor] 40 mg PO HS Enalapril [Vasotec] 2.5 mg PO DAILY Baclofen 5 mg PO TID PRN PRN Reason: Muscle Pain Discontinued Famotidine [Pepcid] 20 mg PO DAILY Naproxen [Naprosyn] 500 mg PO BID Discharge Medication List Atorvastatin [Lipitor] 40 mg PO HS 10/12/18 [History] Cholecalciferol [Vitamin D3 (25 Mcg = 1000 Iu)] 1,000 unit PO DAILY 10/12/18 [History] FLUoxetine HCL [PROzac] 40 mg PO DAILY 10/12/18 [History] Gabapentin [Neurontin] 200 mg PO TID 10/12/18 [History] Oxybutynin Xl [Ditropan XL] 5 mg PO DAILY 10/12/18 [History] Enalapril [Vasotec] 2.5 mg PO DAILY 10/30/18 [History] Baclofen 5 mg PO TID PRN 10/31/18 [History] Acetaminophen Tab [Tylenol] 650 mg PO Q6HR PRN tab 11/03/18 [Rx] Omeprazole [PriLOSEC] 40 mg PO BID #60 capsule. 11/03/18 [Rx] Follow up Appointment(s)/Referral(s): Benny Barbosa MD [Primary Care Provider] - 11/13/18 9:00 am (First available hospital follow up appointment. ) Brii Hope MD [STAFF PHYSICIAN] - 12/08/18 2:00 pm Ambulatory/Diagnostic Orders: Complete Blood Count w/diff [LAB.AMB] Time Frame: 3 Days, Location: None Selected Patient Instructions/Handouts: Gastrointestinal Bleeding (DC), Diet for Stomach Ulcers and Gastritis (ED), Iron Rich Diet (DC) Discharge Disposition: HOME SELF-CARE
== END 2018-11-03 13:39 | disposition home or self-care (01) | DRG 378 ==
LOC: EC 12:30 → 1SOBS 15:02 → OBSVTOIN 22:20 → 3SCARD 23:07
PROVIDERS: ADMIT Hospitalist; ATTEND Hospitalist
PROC: 0DB78ZX Excision of Stomach, Pylorus, Via Natural or Artificial Opening Endoscopic, Diagnostic (ICD-10-PCS; principal; 2018-11-02 08:00)
DX: K25.4 Chronic or unspecified gastric ulcer with hemorrhage (principal); D62 Acute posthemorrhagic anemia; K29.80 Duodenitis without bleeding; E66.9 Obesity, unspecified; F41.0 Panic disorder [episodic paroxysmal anxiety]; M54.5 Low back pain; G89.29 Other chronic pain; I10 Essential (primary) hypertension; K29.70 Gastritis, unspecified, without bleeding; K57.30 Diverticulosis of large intestine without perforation or abscess without bleeding; M19.90 Unspecified osteoarthritis, unspecified site; M48.00 Spinal stenosis, site unspecified; M54.10 Radiculopathy, site unspecified; F32.9 Major depressive disorder, single episode, unspecified; Z68.37 Body mass index [BMI] 37.0-37.9, adult; Z79.899 Other long term (current) drug therapy; Z96.652 Presence of left artificial knee joint; Z87.891 Personal history of nicotine dependence; Z82.49 Family history of ischemic heart disease and other diseases of the circulatory system; Z82.0 Family history of epilepsy and other diseases of the nervous system
CPT/HCPCS: 36415; 43239; 74177; 80053; 81001; 82272; 83605; 84484; 85025; 85730; 86850; 86900; 86901; 88305; 96361; 96374; 96375; 99285

== ENCOUNTER 2018-11-24 09:45 | Day surgery (SDC) | payer MEDICARE, OTHER ==
[2018-11-19 17:03] VITALS: BMI 37.0
[2018-11-24 10:27] VITALS: RESP 16; TEMP 97.5
[2018-11-24] MEDS ORDERED: LACTATED RINGERS 1,000 ML IV ONE (10:27)
[2018-11-24] MEDS ORDERED: IV FLUID CONTINUATION 1,000 ML IV ONE (10:59)
--- NOTE | 2018-11-24 11:09 | FL ---
EXAMINATION TYPE: FL guided pain mgmt statistic DATE OF EXAM: 11/24/2018 HISTORY: Flouroscopy time 6 seconds of fluoroscopy provided. IMPRESSION: 1. Fluoroscopy time.
[2018-11-24 11:36] VITALS: BP 146/88; PULSE 71
== END 2018-11-24 11:30 | disposition home or self-care (01) ==
LOC: ORPAIN 09:45
PROVIDERS: ATTEND Specialist
DX: M54.16 Radiculopathy, lumbar region (principal); M96.1 Postlaminectomy syndrome, not elsewhere classified
CPT/HCPCS: 64483; J2250; J1030; J3010; Q9966; 99152

== ENCOUNTER → 2018-11-26 | Outpatient (CLI) | payer MEDICARE, OTHER ==
--- NOTE | 2018-11-24 10:50 | P.PCN ---
Date of Procedure: 11/24/18 Procedure(s) Performed: PREOPERATIVE DIAGNOSIS: 1-Lumbar radiculopathy. 2-failed back surgery syndrome lumbar area POSTOPERATIVE DIAGNOSIS:same as pre-op diagnosis PROCEDURE 1. Transforaminal epidural steroid injection under fluoroscopic guidance L2-L3 level, right side 2. Lumbar epidurogram ANESTHESIA: Local with 1% lidocaine 3 ml ; IV moderate sedation with Versed and fentanyl PROCEDURE INDICATION: The patient with low back pain and radiculopathy symptoms unresponsive to conservative treatment. Fluoroscopy was used for the procedure and fluoroscopic images were saved to the radiology portion of patient's chart. PROCEDURE DESCRIPTION / TECHNIQUE: The patient was seen and identified in the preoperative area. Risks, benefits, complications, and alternatives were discussed with the patient. The patient agreed to proceed with the procedure and signed the consent. IV was started, and vital signs were stable. Patient was taken to the OR and time out was completed. The patient was placed in the prone position on procedure table and a pillow was placed under the abdom en to reduce lumbar lordosis. The lumbosacral area was prepped and draped in the usual sterile fashion. Vital signs were closely monitored during the procedure. Conscious sedation was used. Using oblique fluoroscopy, the chin of the ``Curtis dog and the skin and deeper tissues just below was localized with 1% lidocaine. Subsequently, a 22- gauge 5-inch spinal needle was advanced under a tunneled view fluoroscopic guidance just underneath the chin of the ``Curtis dog . Under lateral fluoroscopy, the needle was then advanced to the posterior border of the foramen. After negative aspiration of CSF and blood and with no paresthesias, 1 mL of Isovue-200 contrast dye was injected under live fluoroscopy and there was no evidence of intravascular injection. The injectate solution consisting of 40 mg per Medrol with 1 mL of 1% lidocaine was then delivered. The needle was withdrawn intact. At the end of the procedure, skin was cleansed, and bandages were applied. COMPLICATIONS: None COMMENTS: First attempt revealed psoas muscle spread, second attempt revealed good epidural spread. Of note patient has significant bridging osteophytes at L2-L3 on the right. DISPOSITION / PLANS: The patient was placed in a supine position and transferred to the recovery area in a stable condition for observation. There was no evidence of lower extremity motor or sensory deficit after the procedure. Patient was discharged from the recovery room after meeting discharge criteria. Home discharge instructions were given to the patient by the staff. The patient will follow up in clinic in 2-4 weeks.
--- NOTE | 2018-11-26 16:21 | US ---
EXAMINATION TYPE: US pelvis complete transvag DATE OF EXAM: 11/26/2018 COMPARISON: None CLINICAL HISTORY: R10.813 LOWER QUADRANT ABD TENDERNESS. Right side discomfort. Patient states she h as back pain. TECHNIQUE: Transvaginal (TV) and Transabdominal (TA) . Transabdominal sonographic images of the pel vis were acquired. Transvaginal sonographic images were medically necessary to better assess the fol lowing anatomy: Ovaries, Uterus and Endometrium Date of LMP: Menopausal, EXAM MEASUREMENTS: Uterus: 5.1 x 3.2 x 3.1 cm Endometrial Stripe: 0.5 cm Suboptimal exam due to overlying bowel gas and nondistended bladder 1. Uterus: Anteverted Heterogenous. Limited visualization 2. Endometrium: wnl 3. Right Ovary: Obscured by overlying bowel gas 4. Left Ovary: Obscured by overlying bowel gas 5. Bilateral Adnexa: wnl 6. Posterior cul-de-sac: no free fluid Cervix- nabothian cysts IMPRESSION: 1. No ultrasound abnormality. 2. Some limitation due to degree of bladder distention during the exam.
== END | disposition home or self-care (01) ==
LOC: RADUSWWP 11:51
PROVIDERS: ATTEND Family Medicine
DX: R10.813 Right lower quadrant abdominal tenderness (principal)
CPT/HCPCS: 76830; 76856

== ENCOUNTER → 2018-12-10 | Outpatient (CLI) | payer MEDICARE, OTHER ==
[2018-12-10 14:09] VITALS: BP 149/76; PULSE 72; RESP 16
--- NOTE | 2018-12-10 14:20 | P.PAINPG ---
Subjective Progress Note Date: 12/10/18 Principal diagnosis: Left-sided low back pain, left buttock pain This is a pleasant 68-year-old woman with a history of previous back fusion from L4 to S1 who recently was treated with transforaminal epidural steroid injections to help her back pain. She has a newly diagnosed herniated nucleus pulposus at L2-3. She does report receiving approximately one week benefit from these procedures and then returning back to her baseline level of pain. She has consulted with a spine surgeon and is considering having a revision of her fusion. She denies bowel or bladder dysfunction. Objective - Vital Signs Vital signs: Vital Signs Temp Pulse 72 12/10/18 14:04 Resp 16 12/10/18 14:04 BP 149/76 12/10/18 14:04 Pulse Ox 97 12/10/18 14:04 Intake & Output 12/09/18 12/10/18 12/10/18 18:59 06:59 18:59 Weight 99.79 kg - Exam General: The patient is alert and oriented. Patient is not sedated Patient answers all question appropriately. Cardiac: Heart is regular in rate and rhythm Respiratory: Clear to auscultation. No audible wheezes. Abdomen: Soft nontender nondistended. Musculoskeletal: Strength is normal bilaterally. Sensation is normal bilaterally. Straight leg raise is negative bilaterally. Tender to palpation over the lumbar facets on the mid lumbar region on the right side. Facet loading maneuvers are positive on the right. Neurological: Reflexes are preserved and symmetric bilaterally. Assessment and Plan (1) History of lumbar spinal fusion Narrative/Plan: Plan of Care 1. Medications: Patient will continue to receive medications through her prescribing physicians. 2. Interventions: I discussed the patient undergoing a lumbar epidural steroid injection via a translaminar approach at L2-3. I believe this will be helpful in reducing her pain. It is another approach that may give her additional benefit other than the transforaminal approach. If this does not help her I would recommend she follow through with discussing procedures with her surgeon. 3. Referrals: None 4. Testing: None 5. Follow-up: Lumbar epidural steroid injection L2-3 translaminar approach Current Visit: No Status: Acute Code(s): Z98.1 - ARTHRODESIS STATUS SNOMED Code(s): 44573140609347 (2) Lumbar back pain with radiculopathy affecting right lower extremity Current Visit: No Status: Acute Code(s): M54.16 - RADICULOPATHY, LUMBAR REGION SNOMED Code(s): 476246866 PQRS Measure Charge Sheet Measure #130: Documentation of Current Meds in Medical Chart: Patient not eligible for medications to be documented Measure #226: Tobacco Use: Screen & Cessation Intervention: Pt not a tobacco user Measure #111: Pneumonia Vaccination: Pneumococcal vaccine NOT administered or previously given Measure #47: Advance Care Plan: Advance care planning discussed & documented, pt chose/unable to give Measure #412: Opioid Treatment Agreement: No documentation of signed opioid treatment agreement Measure #408: Opioid Therapy Follow-up Evaluation: Patient had NO f/u eval minimum every 3 months during opioid therapy Measure #317: Preventitive Care & Scrn High Bld Press & F/U: Pre-hypertensive or hypertensive BP documented, pt will f/u with PCP Measure #128: Body Mass Index (BMI) Screening & Follow-up: BMI documented ABOVE normal parameters - f/u documented Measure #131: Pain Assessment & Follow-up: Pain positive & plan documented Measure #431: Unhealthy Alcohol Use Preventative Care & Scrn: Patient not identified as an unhealthy alcohol user PQRS Narrative: Smoking Status Former smoker Blood Pressure 149/76 Pain Intensity [Lower Back] 5 Scale Used FLACC (1-3yrs) Hx Alcohol Use (MH) No Home Medications: Ambulatory Orders Atorvastatin [Lipitor] 40 mg PO HS 10/12/18 Cholecalciferol [Vitamin D3 (25 Mcg = 1000 Iu)] 2,000 unit PO DAILY 10/12/18 FLUoxetine HCL [PROzac] 40 mg PO DAILY 10/12/18 Gabapentin [Neurontin] 200 mg PO TID 10/12/18 Oxybutynin Xl [Ditropan XL] 5 mg PO DAILY 10/12/18 Enalapril [Vasotec] 2.5 mg PO DAILY 10/30/18 Baclofen 5 mg PO TID PRN 10/31/18 Omeprazole [PriLOSEC] 40 mg PO BID #60 capsule. 11/03/18 Controlled Substance Measures - Controlled Substance Measures Is patient prescribed a controlled substance at discharge?: No
== END | disposition home or self-care (01) ==
LOC: PNWHC3 13:35
PROVIDERS: ATTEND Pain Medicine Pain Medicine
DX: M54.16 Radiculopathy, lumbar region (principal); Z98.1 Arthrodesis status; Z87.891 Personal history of nicotine dependence; Z79.899 Other long term (current) drug therapy
CPT/HCPCS: 99211

== ENCOUNTER 2018-12-16 08:46 | Day surgery (SDC) | payer MEDICARE, OTHER ==
[2018-12-12 09:13] VITALS: BMI 37.8
[2018-12-16 09:10] VITALS: RESP 16; TEMP 97.5
[2018-12-16] MEDS ORDERED: LIDOCAINE 1% 20 ML VIAL (10MG/ML) FOR IV START INTRADERMA ONE (09:15)
--- NOTE | 2018-12-16 09:59 | P.PCN ---
Date of Procedure: 12/16/18 Procedure(s) Performed: PREOPERATIVE DIAGNOSIS: 1- Lumbar failed back surgery syndrome 2-Lumbar Radiculopathy POSTOPERATIVE DIAGNOSIS: 1-Lumber failed back surgery syndrome 2-Lumbar radiculopathy PROCEDURE 1. Lumbar epidural steroid injection under fluoroscopic guidance at the L2-3 level. (Fluoroscopy imaging was available in radiology department) 2. Lumbar epidurogram. ANESTHESIA: Local with 1% lidocaine 3 ml and , moderate sedation with intravenous Versed 2 mg ,and fentanyle 50 Mcg EBL: Minimal PROCEDURE INDICATION: The patient with low back pain and radiculitis symptoms unresponsive to conservative treatment. Fluoroscopy was used to optimize visualization of the needle placement and to maximize safety. PROCEDURE DESCRIPTION / TECHNIQUE: The patient was seen and identified in the preoperative area. Risks, benefits, complications including but not limited to infections ,bleeding ,allergic reaction to the medications ,nerve damage and not complete pain releife , and alternatives were discussed with the patient. The patient agreed to proceed with the procedure and signed the consent. IV was started, and vital signs were stable. Patient was taken to the OR and time out was completed. The patient was placed in the prone position on procedure table and a pillow was placed under the abdomen to reduce lumbar lordosis. The lumbosacral area was prepped and draped in the usual sterile fashion.ere closely monitored during the procedure. Conscio us sedation was used during the procedure to decrease patients anxiety. Vital signs was monitered during the entire procedure. Using anterior-posterior fluoroscopy, the L2-3 interlaminar space was identified and the skin over this site was marked and then infiltrated with 1% lidocaine subcutaneously. Subsequently, a 20-gauge Tuohy epidural needle was inserted and advanced toward the epidural space using the ``Loss of resistance technique and guided by AP and lateral fluoroscopy. The correct needle position in the epidural space was verified with the injection of 2 mL of the water soluble con trast dye Isovue 200 contrast and observing an excellent epidurogram with the epidural spread of the dye, after negative aspiration for blood and CSF and in the absence of paresthesias. Again after negative aspiration, a 6 ml mixture containing 80 mg of Depo-medrol , and 2 ml of preservative free Normal Saline, and 2 ml of preservative free lidocaine 1% solution was injected and a washout of epidurogram was seen. Needle was withdrawn intact, skin was cleansed, and bandages were applied. COMPLICATIONS: None DISPOSITION / PLANS: The patient was placed in a supine position and transferred to the recovery area in a stable condition for observation. There was no evidence of lower extremity motor or sensory deficit after the procedure. Patient was discharged from the recovery room after meeting discharge criteria. Home discharge instructions were given to the patient by the staff. The patient was reexamined prior to discharge. The patient will schedule a follow up in the clinic in 2-4 weeks.
[2018-12-16] MEDS ORDERED: IV FLUID CONTINUATION 750 ML IV ONE (10:02)
[2018-12-16 10:21] VITALS: BP 139/68; PULSE 74
--- NOTE | 2018-12-16 14:04 | FL ---
Fluoroscopy HISTORY: Pain 1 seconds fluoroscopy time supplied to the referring clinician. 1 intraoperative C-arm images docume nt the procedure. See dictated report from anesthesia.
== END 2018-12-16 10:30 | disposition home or self-care (01) ==
LOC: ORPAIN 08:46
PROVIDERS: ATTEND Specialist
DX: M51.16 Intervertebral disc disorders with radiculopathy, lumbar region (principal); M96.1 Postlaminectomy syndrome, not elsewhere classified
CPT/HCPCS: 62323; J2250; J1030; J3010; Q9966

== ENCOUNTER 2019-01-01 09:57 | Day surgery (SDC) | payer MEDICARE, OTHER ==
[2018-12-31 09:44] VITALS: BMI 38.0
[~2019-01-01 09:57] MED LIST changes: +LIDOCAINE 1% 20 ML VIAL (10MG/ML) FOR IV START INTRADERMA PRN
[2019-01-01 10:15] VITALS: TEMP 97.2
[2019-01-01] MEDS ORDERED: PROPOFOL 10 MG/ML 20 ML VIAL IV ONE (10:22)
--- NOTE | 2019-01-01 10:40 | P.PCN ---
Date of Procedure: 01/01/19 Procedure(s) Performed: BRIEF HISTORY: Patient is a 68-year-old pleasant white female, scheduled for an elective colonoscopy as a part of evaluation of right lower quadrant abdominal pain for the last few months duration. PROCEDURE PERFORMED: Colonoscopy. PREOPERATIVE DIAGNOSIS: Right lower quadrant abdominal pain. IV sedation per Anesthesia. PROCEDURE: After informed consent was obtained, the patient, was brought into the endoscopy unit. IV sedation was administered by Anesthesia under continuous monitoring. Digital rectal examination was normal. Initially the Olympus CF-160 flexible video colonoscope was then inserted in the rectum, gradually advanced into the cecum without any difficulty. Careful examination was performed as the scope was gradually being withdrawn. Ileocecal valve and the appendiceal orifice were visualized and appeared normal. Prep was excellent. Mucosa of the cecum, ascending colon, transverse colon, descending colon, sigmoid colon, and rectum appeared normal. Moderate left sided diverticulosis Retroflexion was performed in the rectum and no lesions were seen. The patient tolerated the procedure well. IMPRESSION: Normal-appearing colon from rectum to cecum with no evidence of colorectal neoplasia. Moderate left-sided diverticulosis. RECOMMENDATIONS: Findings of this examination were discussed with the patient as well as a family. She was advised to have a repeat screening colonoscopy in 10 years. She'll be a high-fiber diet and take fiber supplements on a regular basis.
[2019-01-01 11:37] VITALS: BP 151/79; PULSE 67; RESP 16
== END 2019-01-01 11:34 | disposition home or self-care (01) ==
LOC: ORWHC2ENDO 09:57
PROVIDERS: ATTEND Internal Medicine Gastroenterology
DX: K57.30 Diverticulosis of large intestine without perforation or abscess without bleeding (principal); K21.9 Gastro-esophageal reflux disease without esophagitis; I10 Essential (primary) hypertension; E78.5 Hyperlipidemia, unspecified; G62.9 Polyneuropathy, unspecified; F41.9 Anxiety disorder, unspecified; F32.9 Major depressive disorder, single episode, unspecified; Z87.11 Personal history of peptic ulcer disease; Z85.828 Personal history of other malignant neoplasm of skin; Z79.899 Other long term (current) drug therapy
CPT/HCPCS: 45378; J2704

== ENCOUNTER → 2019-10-20 | Outpatient (CLI) | payer MEDICARE, OTHER ==
[2019-10-20 14:52] VITALS: BP 145/88; PULSE 77; RESP 18; TEMP 98.2
--- NOTE | 2019-10-20 17:20 | P.HPOB ---
History of Present Illness H&P Date: 10/20/19 Chief Complaint: The patient is here for her routine gynecologic exam. This is a 69-year-old with an LMP of 2006. The patient is here to establish with this office. It is been about 4 years since her last routine pelvic exam. She states that 2 months ago she developed a thick yellow vaginal discharge with odor. She was treated with some type of cream at her PCPs office. She does not know that name of the cream or exactly what it was used for. She states that the mustard yellow thick discharge did improve, but she still has a slight discharge now with some pruritus. She did not have itching initially when she first developed the vaginal discharge. The patient is a and states she has not had any type of sexual activity for more than 5 years. She also has a history of small vulvar cysts that are painless and she has had these for many years. She states her use to pop them and a small amount of waxy type of material it would come out. She still has several small cysts on the vulva. She denies any postmenopausal bleeding. Review of Systems She states her weight Fluctuated by as much as 25 pounds over time. She denies respiratory, cardiac, or GI problems. She denies maltreatment or falling. : She has had some urge incontinence and this improved with Ditropan. Past Medical History Past Medical History: Cancer, GERD/Reflux, Hyperlipidemia, Hypertension, Ost eoarthritis (OA) Additional Past Medical History / Comment(s): chronic back pain, neuropathy- in back into right leg. heart murmer, peptic ulcer disease, hx hiatal hernia, ov eractive bladder, skin cancer. 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 History of Any Multi-Drug Resistant Organisms: None Reported Past Surgical History: Back Surgery, Joint Replacement Additional Past Surgical History / Comment(s): claudia to lower back. bilateral eye lens replacement, left knee replacement. skin cancer removed from face and left hand. Colonoscopy 2019. Past Anesthesia/Blood Transfusion Reactions: No Reported Reaction Past Psychological History: Anxiety, Depression, Panic Disorder Additional Psychological History / Comment(s): recently started having panic attacks- large crowds. Smoking Status: Former smoker Past Alcohol Use History: Rare (2/yr) Additional Past Alcohol Use History / Comment(s): STARTED SMOKING AT AGE 16 quit smoking 1977, 1 04/02 PPD Past Drug Use History: None Reported Additional Drug Use History / Comment(s): CBD oil occ. use Additional History: She has been a since approximately 2014. She states she has not been sexually active since then. She does have a boyfriend and she has not been sexually active with him. He is in the service, soon to retire. - Past Family History Mother Family Medical History: Dementia Additional Family Medical History / Comment(s): Anxiety. Father Family Medical History: Dementia Additional Family Medical History / Comment(s): Alzheimer's dz Medications and Allergies Home Medications Medication Instructions Recorded Confirmed Type Atorvastatin [Lipitor] 40 mg PO HS 10/12/18 10/20/19 History Cholecalciferol [Vitamin D3 (25 1,000 unit PO BID 10/12/18 10/20/19 History Mcg = 1000 Iu)] FLUoxetine HCL [PROzac] 40 mg PO DAILY 10/12/18 10/20/19 History Gabapentin [Neurontin] 200 mg PO TID 10/12/18 10/20/19 History Oxybutynin Xl [Ditropan XL] 5 mg PO DAILY 10/12/18 10/20/19 History Enalapril [Vasotec] 2.5 mg PO DAILY 10/30/18 10/20/19 History Omeprazole [PriLOSEC] 40 mg PO DAILY 12/12/18 10/20/19 History amLODIPine BESYLATE [Norvasc] 2.5 mg PO DAILY 10/20/19 10/20/19 History Allergies Allergy/AdvReac Type Severity Reaction Status Date / Time No Known Allergies Allergy Verified 10/20/19 14:41 Exam Vital Signs Temp Pulse Resp BP Pulse Ox 10/20/19 14:45 98.2 F 77 18 145/88 97 Intake and Output 10/20/19 10/20/19 10/20/19 06:59 14:59 22:59 Other: Weight 102.965 kg Height 5 feet 4 inches, weight 227 pounds, BMI 39.0. This is a well-developed well-nourished heavyset white female who is alert and oriented times 3 in no acute distress. HEENT: Within normal limits. NECK: Supple without mass or thyromegaly. CHEST AND LUNGS: Clear to auscultation. HEART: Regular rate and rhythm. BREASTS: Are without mass or discharge. AXILLARY EXAM: Negative for adenopathy. BACK: Negative for CVA tenderness. ABDOMEN: Soft, nontender, without palpable masses. PELVIC EXAM: External genitalia reveals bilateral small benign appearing inclusion cysts. There is also moderate vulvar atrophy. The inclusion cysts each measuring approximately 3 mm. There is approximately 5 on each labia majora. Cervix and vagina appear normal with moderate atrophy. There is a slightly thick slightly yellowish discharge without odor. There is no evidence of prolapse. The uterus is midposition, nongravid size and nontender. There are no palpable adnexal masses or tenderness. RECTAL EXAM: Rectovaginal exam is negative for mass or tenderness and is negative for occult blood. EXTREMITIES: Nontender. IMPRESSION: 1. 69-year-old menopausal female with a 2 month history of thick vaginal discharge which improved with some type of vaginal cream prescribed by her PCP 2 months ago. There is also some vaginal pruritus now. Differential diagnosis will include treated Danisha vaginitis, bacterial vaginosis, and atrophic vaginitis. 2. Benign appearing vulvar inclusion cysts. PLAN: 1. Pap smear was performed. Since we do not know her past history with regard to cervical screening, we will continue Pap smears every 2-3 years until we have had 3 negative ones in a row. 2. Self breast awareness was discussed with the patient. 3. Screening mammogram will be done today. 4. Affirm testing for danisha, Gardnerella, and Trichomonas was obtained from the vagina. 5. If affirm testing is unremarkable, consider trial of estrogen cream to the vagina. This may be helpful for the atrophic changes since she states she may become sexually active in the future. 6.Osteoporosis prevention was discussed. I have stressed the importance of adequate calcium, vitamin D and regular exercise. Recommended amounts of calcium and vitamin D were also discussed. She believes she had a bone density test more than 10 years ago. I have recommended bone density screening. The order slip was given to the patient for this. 7. She was advised to return in one year for her annual well woman exam and as needed.
--- NOTE | 2019-10-21 10:19 | MM ---
Reason for exam: screening (asymptomatic). Last mammogram was performed 1 year and 11 months ago. History: Patient is postmenopausal and history of other cancer. Physical Findings: A clinical breast exam by your physician is recommended on an annual basis and results should be correlated with mammographic findings. MG 3D Screening Mammo W/Cad Bilateral CC and MLO view(s) were taken. Prior study comparison: November 06, 2017, bilateral MG 3d screening mammo w/cad. There are scattered fibroglandular densities. Benign calcifications. There is chronic nodularity in the left breast, stable. No significant changes when compared with prior studies. ASSESSMENT: Benign, BI-RAD 2 RECOMMENDATION: Routine screening mammogram of both breasts in 1 year.
== END | disposition home or self-care (01) ==
LOC: WWCWWP 14:22
PROVIDERS: ATTEND Obstetrics & Gynecology
DX: Z12.31 Encounter for screening mammogram for malignant neoplasm of breast (principal)
CPT/HCPCS: 77063; 77067

== ENCOUNTER 2021-01-08 00:37 | Emergency (ER) | payer MEDICARE, OTHER ==
[2021-01-08 02:11] VITALS: PULSE 67; RESP 21; TEMP 98.7
[2021-01-08] MEDS ORDERED: IBUPROFEN 800 MG TAB PO STA (03:21)
[2021-01-08] MEDS ORDERED: MORPHINE SULFATE 4 MG/ML SYRINGE IM STA (03:21)
[2021-01-08] MEDS ORDERED: dexAMETHasone 2 MG TAB PO STA (03:21)
--- NOTE | 2021-01-08 03:22 | ED ---
Back Pain HPI - General Chief Complaint: Back Pain/Injury Stated Complaint: sciatica pain Time Seen by Provider: 01/08/21 03:13 Source: patient, RN notes reviewed, old records reviewed Mode of arrival: ambulatory Limitations: no limitations - History of Present Illness Initial Comments: This is a 70-year-old female DF for evaluation. Patient presents with severe back pain down right leg. Patient states that she has history of spinal stenosis and back surgery. No new traumas no loss of bowel or bladder. No neurological complaints able to ambulate. Symptoms have been increasing for 2 days MD Complaint: back pain -: days(s) Similar Symptoms Previously: Yes Place: home Radiation: none Severity: severe Severity scale (1-10): 8 Quality: sharp Consistency: constant Improves With: none Worsens With: none Context: while lifting, turning/twisting Associated Symptoms: denies other symptoms Treatments Prior to Arrival: other (none) - Related Data Home Medications Medication Instructions Recorded Confirmed Atorvastatin [Lipitor] 40 mg PO HS 10/12/18 10/20/19 Cholecalciferol [Vitamin D3 (25 1,000 unit PO BID 10/12/18 10/20/19 Mcg = 1000 Iu)] FLUoxetine HCL [PROzac] 40 mg PO DAILY 10/12/18 10/20/19 Gabapentin [Neurontin] 200 mg PO TID 10/12/18 10/20/19 Oxybutynin Xl [Ditropan XL] 5 mg PO DAILY 10/12/18 10/20/19 Enalapril [Vasotec] 2.5 mg PO DAILY 10/30/18 10/20/19 Omeprazole [PriLOSEC] 40 mg PO DAILY 12/12/18 10/20/19 amLODIPine BESYLATE [Norvasc] 2.5 mg PO DAILY 10/20/19 10/20/19 Previous Rx's Medication Instructions Recorded Estradiol Cream [Estrace Cream 1 gm VAGINAL DIRECTED #1 tube 10/22/19 0.01%] Allergies Allergy/AdvReac Type Severity Reaction Status Date / Time No Known Allergies Allergy Verified 01/08/21 02:10 Review of Systems ROS Statement: Those systems with pertinent positive or pertinent negative responses have been documented in the HPI. ROS Other: All systems not noted in ROS Statement are negative. Past Medical History Past Medical History: Cancer, GERD/Reflux, Hyperlipidemia, Hypertension, Osteoarthritis (OA) Additional Past Medical History / Comment(s): chronic back pain, neuropathy- in back into right leg. heart murmer, peptic ulcer disease, hx hiatal hernia, overactive bladder, skin cancer. 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 History of Any Multi-Drug Resistant Organisms: None Reported Past Surgical History: Back Surgery, Joint Replacement Additional Past Surgical History / Comment(s): claudia to lower back. bilateral eye lens replacement, left knee replacement. skin cancer removed from face and left hand. Colonoscopy 2019. Past Anesthesia/Blood Transfusion Reactions: No Reported Reaction Past Psychological History: Anxiety, Depression, Panic Disorder Smoking Status: Former smoker Past Alcohol Use History: Rare Past Drug Use History: None Reported - Past Family History Mother Family Medical History: Dementia Additional Family Medical History / Comment(s): Anxiety. Father Family Medical History: Dementia Additional Family Medical History / Comment(s): Alzheimer's dz General Exam General appearance: alert, in no apparent distress Head exam: Present: atraumatic, normocephalic, normal inspection Eye exam: Present: normal appearance, PERRL, EOMI. Absent: scleral icterus, conjunctival injection, periorbital swelling ENT exam: Present: normal exam, mucous membranes moist Neck exam: Present: normal inspection. Absent: tenderness, meningismus, lymphadenopathy Respiratory exam: Present: normal lung sounds bilaterally. Absent: respiratory distress, wheezes, rales, rhonchi, stridor Cardiovascular Exam: Present: regular rate, normal rhythm, normal heart sounds. Absent: systolic murmur, diastolic murmur, rubs, gallop, clicks GI/Abdominal exam: Present: soft, normal bowel sounds. Absent: distended, tenderness, guarding, rebound, rigid Extremities exam: Present: normal inspection, full ROM, normal capillary refill. Absent: tenderness, pedal edema, joint swelling, calf tenderness Back exam: Present: normal inspection Neurological exam: Present: alert, oriented X3, CN II-XII intact Psychiatric exam: Present: normal affect, normal mood Skin exam: Present: warm, dry, intact, normal color. Absent: rash Course Vital Signs 01/08/21 02:06 Temperature 98.7 F Pulse Rate 67 Respiratory 21 Rate O2 Sat by Pulse 98 Oximetry - Reevaluation(s) Reevaluation #1: 01/08/21 Medical record is reviewed Symptoms improved here in the emergency department Patient informed results and questions answered Patient is in no distress Medical Decision Making - Medical Decision Making 70 female to the emergency department today. Patient Dese for evaluation of severe back pain sciatica back pain. CT is unchanged from prior. Patient is able to ambulate without pain control currently and can be discharged - Radiology Data Radiology results: report reviewed (CT LS-spine is unchanged from prior), image reviewed Disposition Clinical Impression: Lumbar facet arthropathy, Mechanical back pain, Lumbar radiculopathy Disposition: HOME SELF-CARE Condition: Good Instructions (If sedation given, give patient instructions): Sciatica (ED), Acute Low Back Pain (ED), Lumbar Radiculopathy (ED) Is patient prescribed a controlled substance at d/c from ED?: No Referrals: Benny Barbosa MD [Primary Care Provider] - 1-2 days
--- NOTE | 2021-01-08 04:19 | CT ---
EXAMINATION TYPE: CT lumbar spine wo con DATE OF EXAM: 01/08/2021 COMPARISON: 10/12/2018 HISTORY: lower back pain CT DLP: 1737.8 mGycm Automated exposure control for dose reduction was used. The images were obtained from the level of T12-S2 vertebra without contrast. There is previous posterior fusion surgery from L4 to S1. There is posterior screws and rods. There i s degenerative disc space narrowing throughout the lumbar spine and more severe at L4-5 and L5-S1. Th ere is laminectomy defect in the lower lumbar spine. Sacroiliac joints are intact. There is no eviden ce of compression fracture. Abdominal aorta is atheromatous. There is large calcified posterior disc herniation at L2-3 with severe spinal stenosis. IMPRESSION: L2-3 spinal stenosis not significantly different than old exam. Previous surgery. No compression frac ture.
--- NOTE | 2021-01-08 04:23 | CT ---
EXAMINATION TYPE: CT sacrum wo con DATE OF EXAM: 01/08/2021 COMPARISON: October 31, 2018 HISTORY: lower back pain CT DLP: 1737.8 mGycm Automated exposure control for dose reduction was used. Images obtained from the level of S1 to the tip of the coccyx without contrast. Segments have normal alignment. Coccyx is intact. I see no focal bone destruction. There is no eviden ce of any presacral fluid. The rectum appears intact. Sacroiliac joints are intact. The posterior olesya ments are intact. IMPRESSION: Negative sacrum and coccyx exam. No fracture.
[2021-01-08] MEDS ORDERED: IBUPROFEN 600 MG STARTER PACK 4 TAB BTL PO STA (04:35)
[2021-01-08] MEDS ORDERED: ACET/COD 300 MG/30 MG STARTER PACK 6 TAB BTL PO STA (04:35)
== END 2021-01-08 04:56 | disposition home or self-care (01) ==
LOC: EC 00:37
DX: M47.26 Other spondylosis with radiculopathy, lumbar region (principal); I10 Essential (primary) hypertension; E78.5 Hyperlipidemia, unspecified; K21.9 Gastro-esophageal reflux disease without esophagitis; Z87.11 Personal history of peptic ulcer disease; Z87.891 Personal history of nicotine dependence; Z98.1 Arthrodesis status; F32.9 Major depressive disorder, single episode, unspecified; F41.9 Anxiety disorder, unspecified
CPT/HCPCS: 72131; 72192; 99284; 96372; J2270; J8540

== ENCOUNTER → 2021-02-08 | Outpatient (CLI) | payer MEDICARE, OTHER ==
[2021-02-08 11:49] VITALS: BP 136/80; PULSE 70; RESP 18; TEMP 97
--- NOTE | 2021-02-08 15:21 | P.PN ---
Subjective Progress Note Date: 02/08/21 Natasha is a 70-year-old female presenting to clinic today for follow-up appointment for chronic low back pain. She was last seen in our office in 2019 where last procedure was a lumbar epidural steroid injection at L2-3. She has a history of lumbar spondylosis and facet arthropathy without myelopathy, lumbar radiculopathy status post lumbar fusion pain. Today she is reporting 3-4 month episode of low back pain more specifically on her right. She describes it as a sharp, aching sensation. Pain is worse with walking and excessive use. Pain is better with sitting and heat. In 2009 she had a lumbar fusion and a couple years ago her neurosurgeon offered to do a revision with increased level of fixation. At that time she does not want to have surgery and considered other conservative therapies. She has had episodes of physical therapy finished about a month ago. She continues to at-home exercises however pain does persist. She complains of some pain in the lower back radiating slightly into her lower extremity to her buttocks into her outer portion of her thigh. She is also complaining of intermittent numbness and tingling sensation in her left leg also down her lateral thigh to the top of her knee. She rates her pain on average is a 4 out of 10 on a 0-to-10 scale. At worst its a 7 or 8 out of 10. She denies any bowel or bladder dysfunction, saddle anesthesia, or any other red flag symptoms. Objective - Vital Signs Vital signs: Vital Signs Temp 97 F L 02/08/21 11:40 Pulse 70 02/08/21 11:40 Resp 18 02/08/21 11:40 BP 136/80 02/08/21 11:40 Pulse Ox Intake & Output 02/07/21 02/08/21 02/08/21 18:59 06:59 18:59 Weight 106.594 kg - Exam Physical Examinations : -Constitutiona : Cooperative , not in acute distress . -HEENT : nech : supple , no Lymphadenopathy , normal thyroid size . : eyes : no ptosis , no icterus, no photophobia . - neurologic : Cranial nerve II to XII intact , no focal neurological deffecit . -psychatric : alert , oriented X 3 , appropriate affect , intact judgment and insight . -Lymphatic : no Lymphadenopathy . - musculoskeltal : Lumber spine moter stegnth lower extremities ,thigh and legs 5/5 Right side , 5/5 Left side deep tendon reflexes : normal Knee Jerk , normal ankle Jerk lumber facet Loading Test =positive Right , positive Left Range of motion of the lumbar spine Flexion 30 degrees, extension 10 degrees strait leg raising test = positive at 20 degree Fabere test= positive Right , and positive LT . Sever tenderness over the Sacroiliac joint on the Right , and Left sides Gaenslen test= positive right Seated flexion test= positive right Distraction test= positive right Sacroiliac compression test= positive right Assessment and Plan Assessment: Assessment and plan Assessment: 1- Lumbar failed back surgery syndrome 2-Lumbar Radiculopathy 3-right sacroiliac joint dysfunction Plan: Patient could benefit from right sacroiliac joint injection Patient could benefit from lumbar epidural straight injection at L2-3 Dr. Hightower was available by phone for consultation during his visit. I have spent 24 minutes on patient care today. The time was used to review the medical records including relevant urine studies and Prescription history (MAPs), review of the available imaging, evaluation and examination of the patient, coordination of care with the medical staff and if applicable referring physicians, as well as creation of the medical record. - PQRS measures = - Patient's medications are documented in the chart. -Tobacco use is negative -Patient's has not received pneumococcal vaccine. -Advanced care planning discussed, patient not eligible. -Opiate contract not signed. -Pain positive and follow-up visit/procedure is scheduled. -Patient's blood pressure measured 136/80, and documented in the record ,and patient will follow up with the primary care. -Patient was not identified as an unhealthy alcohol user
== END ==
LOC: PNWHC3 11:21
PROVIDERS: ATTEND Student in an Organized Health Care Education/Training Program
DX: M54.16 Radiculopathy, lumbar region (principal); M96.1 Postlaminectomy syndrome, not elsewhere classified; M53.3 Sacrococcygeal disorders, not elsewhere classified; Z87.891 Personal history of nicotine dependence
CPT/HCPCS: 99211

== ENCOUNTER 2021-04-11 09:46 | Day surgery (SDC) | payer MEDICARE, OTHER ==
[2021-04-05 11:46] VITALS: BMI 39.6
[~2021-04-11 09:46] MED LIST changes: -LIDOCAINE 1% 20 ML VIAL (10MG/ML) FOR IV START INTRADERMA PRN
[2021-04-11 10:44] VITALS: TEMP 98.6
[2021-04-11] MEDS ORDERED: LIDOCAINE 1% (10MG/ML) FOR IV START INTRADERMA ONE (10:44)
[2021-04-11] MEDS ORDERED: IOPAMIDOL M200 10 ML VIAL ONE (10:51)
[2021-04-11] MEDS ORDERED: TRIAMCINOLONE ACETONIDE 40 MG/ML 1 ML VIAL ONE (10:51)
[2021-04-11] MEDS ORDERED: MIDAZOLAM 2 MG/2 ML VIAL ONE (10:51)
[2021-04-11] MEDS ORDERED: fentaNYL (PF) 50 MCG/ML 2 ML AMP ONE (10:51)
--- NOTE | 2021-04-11 11:05 | P.PCN ---
Date of Procedure: 04/11/21 Description of Procedure: PREOPERATIVE DIAGNOSIS: Sacroiliac joint dysfunction POSTOPERATIVE DIAGNOSIS: Sacroiliac joint dysfunction. PROCEDURES: 1 right-sided -Sacroiliac joint steroid injection #1 out of 2 2. Sacroiliac joint arthrogram. SURGEON: Poonam Sumner ANESTHESIA: Local and IV sedation : Versed, and fentanyl. EBL: None. Specimen removed: None Fluoroscopic image: saved to electronic medical records. PROCEDURE INDICATIONS: This patient with a history of chronic low back pain, and sacroiliac joint dysfunction. Patient tried conservative therapy. Came here for intervention management. PROCEDURE DESCRIPTION: The patient was seen and identified in the preoperative area. Risks, benefits, complications, and alternatives were discussed with the patient. The patient agreed to proceed with the procedure and signed the consent. IV was started, and vital signs were stable. Patient was taken to the OR and time out was completed. The patient was placed in the prone position on procedure table and a pillow was placed under the abdomen to reduce lumbar lordosis. The lumbosacral area was prepped and draped in the usual sterile fashion. Critical pause was taken. Vital signs were closely monitored during the procedure. For the right side, the fluoroscopic camera was placed in left oblique view and right SI joint lower pole was identified. Skin entry point was infiltrated with 1% lidocaine and 22-gauge 3.5 inch spinal needle was introduced into the inferior one-third of SI joint and after penetrating into the joint arthrogram was done. 0.5 ml of [id number] contrast was injected after negative aspiration for blood, and air and negative for paresthesia. Good spread of the contrast into the SI joint has been seen. Then again after negative aspiration of spinal fluid and blood and negative for neurological symptoms, 3 mL of a solution containing total 2 mL of 1% preservative-free lidocaine mixed with 40 mg of Kenalog was injected. Needle was withdrawn intact.. Needle was withdrawn intact. Skin was cleansed, and bandages were applied. COMPLICATIONS: None. DISPOSITION / PLANS: The patient was placed in a supine position and transferred to the recovery area in a stable condition for observation and was discharged from the recovery room after meeting discharge criteria. Home discharge instructions given to the patient by the staff. The patient was reexamined prior to discharge. The patient will schedule for follow-up visit with the pain clinic in 4 weeks duration.
[2021-04-11] MEDS ORDERED: IV FLUID CONTINUATION 1,000 ML IV ONE (11:07)
[2021-04-11 11:15] VITALS: RESP 16
--- NOTE | 2021-04-11 11:20 | FL ---
EXAMINATION TYPE: FL guided pain mgmt statistic DATE OF EXAM: 04/11/2021 HISTORY: Fluoroscopy time 2 seconds of fluoroscopy provided. IMPRESSION: 1. Fluoroscopy time.
[2021-04-11 11:23] VITALS: BP 160/70; PULSE 74
== END 2021-04-11 11:37 | disposition home or self-care (01) ==
LOC: ORPAIN 09:46
DX: G89.29 Other chronic pain (principal); M51.36 Other intervertebral disc degeneration, lumbar region; M51.26 Other intervertebral disc displacement, lumbar region; M54.50 Low back pain, unspecified; M53.3 Sacrococcygeal disorders, not elsewhere classified; I10 Essential (primary) hypertension; M19.90 Unspecified osteoarthritis, unspecified site; E66.9 Obesity, unspecified; Z68.41 Body mass index [BMI] 40.0-44.9, adult; Z96.652 Presence of left artificial knee joint; Z98.890 Other specified postprocedural states
CPT/HCPCS: J2250; J3301; J3010; Q9966; G0260; 27096

== ENCOUNTER → 2021-05-08 | Outpatient (CLI) | payer MEDICARE, OTHER ==
--- NOTE | 2021-05-08 12:36 | P.PN ---
Subjective Progress Note Date: 05/08/21 Principal diagnosis: A 70 yr old female with a history of severe and chronic low back pain secondary to lumbar degenerative disc diseases and lumbar spondylosis with facet arthropathy presents today for evaluation status post right SI joint injection. She just states she experienced 70% pain relief for 1 week after the procedure. Her pain level was 8 out 10 but dropped down to a 4 out of 10 which is what it is currently. Pain is achy/ sharp/ shooting in the right hip and radiates towards the right lateral thigh sometimes. Pain is provoked by standing for 20 minutes or more, walking or lifting. Pain is alleviated with medications, topicals, injections, heat, physical therapy a few months ago, repositioning towards the right side when sitting and rest. Interventional pain procedures completed include right SI joint injection #1 Patient is currently on Tylenol OTC, Tylenol #3 Patient denies any side effects of the medication(s), denies excessive drowsiness or sleepiness, denies suicidal ideation and reports that the current pain medication is helping to control the pain and improve activities of daily living. Patient denies any motor or sensory deficits. Patient denies any fever or night sweats, denies any change in the bowel movements or urination. Physical Examination: -Constitutional: Cooperative. Not in acute distress . -HEENT: Neck is supple. No lymphadenopathy. No thyromegaly. Normal thyroid size. Eyes: No ptosis , no icterus, no photophobia. ENT: No auditory deficits. Normal oropharynx. No Thrush. - Respiratory: Chest clear to auscultations bilaterally. No wheezing. No rhonchi. - Cardiovascular: Regular rate and rhythm. S1 / S2 , no S3 , no S4. - Gastrointestinal: Abdomen soft no tenderness. Bowel sounds positive in all four quadrants. No organomegaly. - Genitourinary: Deferred. - Neurologic: Cranial nerve II to XII intact. No focal neurological deficits. - Psychatric: Alert & oriented x 3. Matching mood & appropriate affect. Judgment and insight intact. - Lymphatic: No Lymphadenopathy. - Musculoskeletal: Cervical spine: Muscle bulk/ tone/ strength in the bilateral upper extremities normal. Facet loading test cervical area positive. Lumbar spine: Motor bulk/ tone/ strength lower extremities , thigh and legs : 5/5 Deep tendon reflexes : Normal Knee Jerk. Normal Ankle Jerk . Lumbar Facet Loading Test positive Straight Leg Raise: positive at 30 degree right side/ left side Lily test: positive right side / left side Range of motion: Flexion of the lumbar spine <90 degrees Range of motion: Extension of the lumbar spine <20 degrees Gaenslen's test positive over the right Severe tenderness over the Sacroiliac joint: right side / left side Assessment and plan: Chronic low back pain secondary to lumbar degenerative disc disease , lumbar spondylosis with facet arthropathy without myelopathy Recommendation of R SI joint injection #2 Denies aspirin or anti coagulants Risks, benefits of procedure discussed and pt verbalized understanding All patient questions answered MAPS reviewed and it was appropriate. I have spent 31 minutes on patient care today. Dr Hightower was available by phone for the evaluation of this patient. The time was used to review the medical records including relevant urine studies and Prescription history (MAPs), review of the available imaging, evaluation and examination of the patient, coordination of care with the medical staff and if applicable referring physicians, as well as creation of the medical record PQRS Measure Charge Sheet - Pain Location Lower Back Non-Pharmacological Interventions: Heat, Sitting Pharmacological Interventions: Block, Epidural, PRN Medication PQRS Narrative: Smoking Status Former smoker Pain Intensity [Lower Back] 4 Scale Used Numeric (1 - 10) Hx Alcohol Use (MH) Yes: RARE Home Medications: Ambulatory Orders Cholecalciferol [Vitamin D3 (25 Mcg = 1000 Iu)] 1,000 unit PO BID 10/12/18 FLUoxetine HCL [PROzac] 40 mg PO 1430 10/12/18 Gabapentin [Neurontin] 600 mg PO BID 10/12/18 Oxybutynin Xl [Ditropan XL] 5 mg PO DAILY 10/12/18 Enalapril [Vasotec] 2.5 mg PO HS 10/30/18 Omeprazole [PriLOSEC] 40 mg PO 1430 12/12/18 amLODIPine BESYLATE [Norvasc] 2.5 mg PO HS 10/20/19 Acetaminophen-Codeine 300-30mg [Tylenol w/codeine #3] 1 - 2 tab PO Q4-6H PRN 02/07/21 Acetaminophen [Tylenol Extra Strength] 500 mg PO Q6H PRN 05/04/21
[2021-05-08 12:42] VITALS: BP 140/85; PULSE 59; RESP 18; TEMP 97.6
== END ==
LOC: PNWHC3 11:45
PROVIDERS: ATTEND Physician Assistant Medical
DX: M51.36 Other intervertebral disc degeneration, lumbar region (principal); M47.816 Spondylosis without myelopathy or radiculopathy, lumbar region; G89.29 Other chronic pain; Z87.891 Personal history of nicotine dependence
CPT/HCPCS: 99211

== ENCOUNTER → 2021-06-05 | Outpatient (CLI) | payer MEDICARE, OTHER ==
[2021-06-05 13:32] VITALS: BP 115/60; PULSE 70; RESP 18; TEMP 97.9
--- NOTE | 2021-06-05 13:54 | P.PN ---
Subjective Progress Note Date: 06/05/21 Principal diagnosis: A 70 yr old female with a history of severe and chronic right sacroiliitis presents today for evaluation status post right SI joint injection #2. Just states she extremes 50% pain relief for 2 weeks status post procedure. Pain level is currently at 4 out of 10 in intensity, dull and achy in the lower lumbar spine tailbone area with radiation of pain to the buttocks. Pain escalates as high as 7 out of 10 in intensity with walking or standing for drew ods of 30 minutes or more. Pain is alleviated with medications, injections, heat, physical therapy on 02/19, home stretching regimen, laying supine and rest. Interventional pain procedures completed include right SI joint injection #2 Patient is currently on Tylenol OTC, Tylenol [address] Barbosa Patient denies any side effects of the medication(s), denies excessive drowsiness or sleepiness, denies suicidal ideation and reports that the current pain medication is helping to control the pain and improve activities of daily living. Patient denies any motor or sensory deficits. Patient denies any fever or night sweats, denies any change in the bowel movements or urination. Physical Examination: -Constitutional: Cooperative. Not in acute distress . -HEENT: Neck is supple. No lymphadenopathy. No thyromegaly. Normal thyroid size. Eyes: No ptosis , no icterus, no photophobia. ENT: No auditory deficits. Normal oropharynx. No Thrush. - Respiratory: Chest clear to auscultations bilaterally. No wheezing. No rhonchi. - Cardiovascular: Regular rate and rhythm. S1 / S2 , no S3 , no S4. - Gastrointestinal: Abdomen soft no tenderness. Bowel sounds positive in all four quadrants. No organomegaly. - Genitourinary: Deferred. - Neurologic: Cranial nerve II to XII intact. No focal neurological deficits. - Psychatric: Alert & oriented x 3. Matching mood & appropriate affect. Judgment and insight intact. - Lymphatic: No Lymphadenopathy. - Musculoskeletal: Cervical spine: Muscle bulk/ tone/ strength in the bilateral upper extremities normal. Facet loading test cervical area positive. Lumbar spine: Motor bulk/ tone/ strength lower extremities , thigh and legs : 5/5 Deep tendon reflexes : Normal Knee Jerk. Normal Ankle Jerk . Vertebral body tenderness to palpation over Lumbar Facet Loading Test positive Straight Leg Raise: positive at 30 degrees right side/ left side Gaenslen's Test positive Sacral spine : Severe tenderness over the Sacroiliac joint: right side / left side Range of motion: Flexion of the lumbar spine <60 degrees Range of motion: Extension of the lumbar spine <20 degrees Gaenslen's Test positive on the right Lily test: positive right side / left side Assessment and plan: Chronic right sacroiliitis Recommendation of right SI joint injection #3. Procedure should be spaced approximately 3 months apart from the second one. Risks, benefits of procedure discussed and patient verbalized understanding. Patient denies anticoagulants use. Patient denies a medical history of diabetes mellitus. All patient questions answered MAPS reviewed and it was appropriate. I have spent 31 minutes on patient care today. Dr Hightower was available by phone for the evaluation of this patient. The time was used to review the medical records including relevant urine studies and Prescription history (MAPs), review of the available imaging, evaluation and examination of the patient, coordination of care with the medical staff and if applicable referring physicians, as well as creation of the medical record Objective - Vital Signs Vital signs: Vital Signs Temp 97.9 F 06/05/21 13:25 Pulse 70 06/05/21 13:25 Resp 18 06/05/21 13:25 BP 115/60 06/05/21 13:25 Pulse Ox 96 06/05/21 13:25 PQRS Measure Charge Sheet Mode of Arrival: Ambulatory - Pain Location Lower Back Non-Pharmacological Interventions: Heat, Home Exercise, Inactivity, Physical Therapy, Stretching Pharmacological Interventions: PRN Medication PQRS Narrative: Smoking Status Former smoker Blood Pressure 115/60 Pain Intensity [Lower Back] 4 Scale Used Numeric (1 - 10) Hx Alcohol Use (MH) Yes: RARE Home Medications: Ambulatory Orders Cholecalciferol [Vitamin D3 (25 Mcg = 1000 Iu)] 1,000 unit PO BID 10/12/18 FLUoxetine HCL [PROzac] 40 mg PO 1430 10/12/18 Gabapentin [Neurontin] 600 mg PO BID 10/12/18 Oxybutynin Xl [Ditropan XL] 5 mg PO DAILY 10/12/18 Enalapril [Vasotec] 2.5 mg PO HS 10/30/18 Omeprazole [PriLOSEC] 40 mg PO 1430 12/12/18 amLODIPine BESYLATE [Norvasc] 2.5 mg PO HS 10/20/19 Acetaminophen-Codeine 300-30mg [Tylenol w/codeine #3] 1 - 2 tab PO Q4-6H PRN 02/07/21 Acetaminophen [Tylenol Extra Strength] 500 mg PO Q6H PRN 05/04/21
== END ==
LOC: PNWHC3 12:47
PROVIDERS: ATTEND Physician Assistant Medical
DX: M46.1 Sacroiliitis, not elsewhere classified (principal); G89.29 Other chronic pain; Z87.891 Personal history of nicotine dependence
CPT/HCPCS: 99211

== ENCOUNTER → 2022-02-13 | Outpatient (CLI) | payer MEDICARE, OTHER ==
--- NOTE | 2022-02-13 10:45 | XR ---
EXAMINATION TYPE: XR chest 2V DATE OF EXAM: 02/13/2022 COMPARISON: NONE TECHNIQUE: PA and lateral views submitted. HISTORY: Preop FINDINGS: The lungs are clear and there is no pneumothorax, pleural effusion, or focal pneumonia. Atheroscler otic changes aorta. Hypertrophic degenerative change of the spine. Hyperinflation suggests COPD. IMPRESSION: 1. No acute process.
[2022-02-13 11:02] LABS: Partial Thromboplastin Time 25.5 sec (22.0-30.0); Prothrombin Time 11.2 sec (9.0-12.0)
[2022-02-13 14:26] LABS: Basophils # (A) 0.05 X 10*3/uL (0.00-0.10); Basophils % (A) 0.5 %; Eosinophils # (A) 0.28 X 10*3/uL (0.04-0.35); HCT 40.7 % (37.2-46.3); HGB 11.9 g/dL (12.0-15.0); Immature Grans, Automated 0.7 %; Lymphocytes # (A) 1.26 X 10*3/uL (0.90-5.00); Lymphocytes % (A) 13.4 %; MCH 25.6 pg (27.0-32.0); MCHC 29.2 g/dL (32.0-37.0); MCV 87.5 fL (80.0-97.0); Mean Platelet Volume 10.3 fL (9.5-12.2); Monocytes # (A) 0.93 X 10*3/uL (0.20-1.00); Monocytes % (A) 9.9 %; NRBC Per 100 WBC 0 /100 WBCS (0.0-0.0); Neutrophils # (A) 6.84 X 10*3/uL (1.80-7.70); Neutrophils % (A) 72.5 %; Platelet Count 332 X 10*3/uL (140-440); RBC 4.65 X 10*6/uL (4.10-5.20); RDW 15.5 % (11.5-14.5); WBC 9.43 X 10*3/uL (4.50-10.00)
[2022-02-13 14:47] LABS: Appearance,Urine Cloudy (Clear); Bilirubin,Urine Negative (Negative); Blood,Urine Trace (Negative); Color,Urine Yellow (Yellow); Ketones,Urine Negative (Negative); Nitrite,Urine Negative (Negative); PH, Urine 6.5 (5.0-8.0); Specific Gravity,Urine 1.013 (1.001-1.030)
[2022-02-13 14:50] LABS: African American GFR (CKD) 57.7 (60.0-200.0); Albumin/Globulin Ratio 1.31 (1.60-3.17); Anion Gap 11.8 mmol/L (10.00-18.00); BUN/Creat Ratio 13.27 Ratio (12.00-20.00); Blood Urea Nitrogen 14.6 mg/dL (9.0-27.0); Calcium 9.6 mg/dL (8.7-10.3); Carbon Dioxide 26.9 mmol/L (20.0-27.5); Globulin 3.1 g/dL (1.6-3.3); Non-African American GFR(CKD) 49.8 (60.0-200.0); Potassium 4.5 mmol/L (3.5-5.5); Total Bilirubin 0.4 mg/dL (0.30-1.20); Total Protein 7.1 g/dL (6.2-8.2)
[2022-02-13 15:00] LABS: Bacteria,Urine 2+ /HPF (None Seen)
== END | disposition home or self-care (01) ==
LOC: LABPAT 10:00
PROVIDERS: ATTEND Orthopaedic Surgery Orthopaedic Surgery of the Spine
DX: Z01.812 Encounter for preprocedural laboratory examination (principal); Z01.818 Encounter for other preprocedural examination; M48.061 Spinal stenosis, lumbar region without neurogenic claudication
CPT/HCPCS: 71046; 80053; 81001; 85025; 85610; 85730; 87070

== ENCOUNTER 2022-02-19 05:31 | Observation (INO) | payer MEDICARE, OTHER ==
[~2022-02-19 05:31] MED LIST changes: -LACTATED RINGERS 1,000 ML IV SCH; +ceFAZolin 1,000 MG in SODIUM CHLORIDE 0.9% IRRIGATIO 1,000 ML IRRIGATION PRN
[2022-02-19] MEDS ORDERED: HYDROmorphone 0.5 MG/0.5 ML SYRINGE IVP PRN ×2 (05:58→11:07)
[2022-02-19] MEDS ORDERED: DEXAMETHASONE SOD PHOSPHATE 4 MG/ML 1 ML VIAL IV ONE (05:58)
[2022-02-19] MEDS ORDERED: ONDANSETRON 4 MG/2 ML VIAL IVP ONE ×2 (05:58→06:39)
[2022-02-19] MEDS ORDERED: LIDOCAINE 1% (10MG/ML) FOR IV START INTRADERMA PRN (05:58)
[2022-02-19] MEDS ORDERED: MIDAZOLAM 2 MG/2 ML VIAL IV PRN (05:58)
[2022-02-19] MEDS ORDERED: LACTATED RINGERS 1,000 ML IV ONE ×2 (06:01→10:18)
[2022-02-19] MEDS ORDERED: GLYCOPYRROLATE 0.2 MG/ML 2 ML VIAL ONE (06:54)
[2022-02-19] MEDS ORDERED: PHENYLEPHRINE-0.9% NACL SYG 1,000 MCG/10 ML SYRINGE ONE (06:54)
[2022-02-19] MEDS ORDERED: MIDAZOLAM 2 MG/2 ML VIAL ONE (06:54)
[2022-02-19] MEDS ORDERED: KETAMINE 10 MG/ML 20 ML VIAL ONE (06:54)
[2022-02-19] MEDS ORDERED: ePHEDrine 50 MG/ML 1 ML VIAL ONE (06:54)
[2022-02-19] MEDS ORDERED: NEOSTIGMINE 1 MG/ML 10 ML VIAL ONE (06:54)
[2022-02-19] MEDS ORDERED: fentaNYL (PF) 50 MCG/ML 2 ML AMP ONE (06:54)
[2022-02-19] MEDS ORDERED: SUCCINYLCHOLINE CHLORIDE 200 MG/10 ML VIAL IV ONE (06:54)
[2022-02-19] MEDS ORDERED: ROCURONIUM 10 MG/ML (5 ML VIAL) IV ONE (06:54)
[2022-02-19] MEDS ORDERED: LIDOCAINE 2% INJ 20 MG/ML (2 ML VIAL) ONE (06:54)
[2022-02-19] MEDS ORDERED: PROPOFOL 10 MG/ML 20 ML VIAL IV ONE (06:54)
[2022-02-19] MEDS ORDERED: HYDROmorphone (PF) 1 MG/ML ONE (06:54)
[2022-02-19] MEDS ORDERED: THROMBIN (BOVINE) 5,000 UNIT VIAL TOPICAL ONE (07:58)
[2022-02-19] MEDS ORDERED: GELATIN SPONGE,ABSORB (LARGE) 1 EACH SPONGE TOPICAL ONE (07:58)
[2022-02-19] MEDS ORDERED: BUPIVACAIN-EPI 0.25%-1:200,000 30 ML VIAL SQ ONE (07:58)
[2022-02-19] MEDS ORDERED: bisacodyL 10 MG SUPP RECTAL PRN (11:07)
[2022-02-19] MEDS ORDERED: ONDANSETRON 4 MG/2 ML VIAL IVP PRN (11:07)
[2022-02-19] MEDS ORDERED: BENZOCAINE/MENTHOL LOZENG 1 EACH LOZENGE MUCOUS MEM PRN (11:07)
[2022-02-19] MEDS ORDERED: ACETAMINOPHEN TAB 500 MG TAB PO PRN (11:10)
--- NOTE | 2022-02-19 11:27 | P.OP ---
Date of Procedure: 02/19/22 Preoperative Diagnosis: Degenerative scoliosis, severe spinal stenosis L2-3 spinal stenosis L3 4, history of prior lumbar decompression and fusion L4 to S1, retained hardware L4 to S1, lower extremity radiculopathy, neurogenic claudication, degenerative disc disease, facet arthrosis Postoperative Diagnosis: Same with findings of solid fusion L4 5 and L5-S1 Anesthesia: GETA Pathology: none sent Condition: stable Disposition: PACU Description of Procedure: BRIEF OPERATIVE NOTE Preoperative Diagnosis:Degenerative scoliosis, severe spinal stenosis L2-3 spinal stenosis L3 4, history of prior lumbar decompression and fusion L4 to S1, retained hardware L4 to S1, lower extremity radiculopathy, neurogenic claudication, degenerative disc disease, facet arthrosis Postoperative Diagnosis:Degenerative scoliosis, severe spinal stenosis L2-3 spinal stenosis L3 4, history of prior lumbar decompression and fusion L4 to S1, retained hardware L4 to S1, lower extremity radiculopathy, neurogenic claudication, degenerative disc disease, facet arthrosis, with findings of solid fusion L4 5 L5-S1 Procedure: Removal of deep hardware L4-L5 and S1 Exploration of fusion L4 5 L5-S1 with findings of solid fusion Laminectomy and decompression L3 4 and L2-3 Use of Ziehm and CT guidance system for placement of pedicle screw hardware at L2 and L3 Posterior lateral decompression and fusion L2-3 and L3 4 Transforaminal lumbar interbody fusion for a 360 fusion L3 4 Discectomy for decompression L3 4 Placement of interbody graft L3 4 Harvesting of bone marrow aspirate from the vertebral body of L3 Local autogenous bone grafting Use of Cell Saver Use of bone graft extenders Use of neuro monitoring Surgeon: Dr. Campos Tennis Professional: Rob Herring is present throughout the entire the case persistence during positioning, dissection, exposure, visualization, and all crucial elements of the case as well as closure. Anesthesia: General anesthesia per Dr. Soto Estimated blood loss: Approximately 250 mL Complications: None apparent Components implanted: We removed her prior pedicle screws and rods and cross- link at L4-L5 and S1. We closed new hardware with pedicle screws rods and interbody cage and cross-link at L2-3 and 4 with K2M 5.5 and 7.5 mm Dauphin pedicle screw system and a peek 6 mm cage Disposition: To recovery room in good stable condition. OPERATIVE INDICATIONS The patient has had long-standing issues in their lower back and lower extremities. The patient had a long history of issues in her back has undergone multiple surgeries at her lumbar spine. Her most recent surgery was a prior decompression and fusion at L4-L5 and S1 several years ago. She had initially done fairly well with that procedure however over the past year she has been having increasing pain at her back in her lower extremities. She has been developing degenerative scoliosis with degenerative disc disease and evidence of severe spinal stenosis particularly at L2-3 and L3 4 at the adjacent levels abov e her prior fusion. These findings correlated well with her low back and lower extremity symptoms. She is having worsening symptoms despite aggressive conservative care and interventional pain management and therapy. The patient has been through conservative treatment. We discussed various treatment options including surgery, and the patient wishes to proceed with surgery We discussed the risk, patient's alternatives and benefits of surgery including but not limited to, risk of bleeding risk of infection, risk of need for further surgery, risk of decreased, loss of motion, muscle function, malunion nonunion, hardware failure, nerve damage, paralysis, heart attack, blindness and . OPERATIVE SUMMARY After discussing all the risks, patient alternatives and benefits at length, the patient elected to proceed with surgical intervention, signed informed consent, and presented for their procedure. The patient was seen and examined in the preoperative holding area and the surgical site was marked. The patient was given antibiotics and brought to the operating room. The patient was sedated and intubated by anesthesia in standard fashion. The patient was positioned on to the operating room table in a prone position on the appropriate frame which was well-padded and well molded. We were careful to pad any bony prominences and pressure points. We were careful to maintain the patient's cervical spine and good neutral alignment and position throughout. The patient was prepped and draped in a normal standard fashion. An appropriate timeout and keystone protocol performed. We were able to proceed with the surgery. The local wound area was infiltrated with local anesthetic. An incision was made at the midline longitudinally over the appropriate levels utilizing the prior incision and extending it cephalad. Dissection was taken down subcutaneously to the level of the fascia which was split midline. Dissection was taken over the lamina bilaterally over the facet joints and to the transverse processes at L2-3 and L3 4 while being able to visualize the hardware at L4-L5 and S1. Intraoperative x-ray was taken which showed a marker at the appropriate level identifying the prior hardware. At this point I was able to then attach a Ziehm CT guidance marker. I was able to establish a stable marker on the hardware at L4 and then the patient was appropriately d raped and a Ziehm system was brought in and we were able to do a spin for the CT guidance imaging. The imaging was produced able to get excellent coronal and axial guidance imaging with the appropriate transportation. We able to use this for placement of the pedicle holes with further accuracy and precision at L2 and L3. With the appropriate level positively confirmed, we were able to proceed w ith placement of the pedicle holes and screws. The patient had all their twitches back. The wound was copiously irrigated and suctioned dry as had been done periodically throughout the case. Screw holes were established similarly at each level. I was able to use the Jamshidi needle to establish the pedicle hole at L2 and L3. It was done under the guidance and visualization. With it in good position and alignment was able place a wire through the Jamshidi into the root table body via the pedicle and excellent alignment and position. This was checked and confirmed on fluoroscopic guidance. The transverse process or sacral ala was decorticated with a high-speed bur. I was able to use these holes to place the appropriate size screw and good alignment and good position with good bony purchase at L2 and L3. I was able to remove the hardware at L4 L5 and S, as there was not enough space for attachment devices. I had to remove the hardware in total and was CHECKED and found to be in total the Screws and the pedicle screws and rods. This was done at L4-L5 and S1. With this accomplished I explored the bony fusion site and tried to mobilize the areas. There is no evidence of any motion at L4 5 or at L5-S1 and I felt that they were solidly fused. I placed new screws at the L4 pedicle hole sites and they're checked and found to be stable.. When the screws were inserted there were stimulated, and found to have no stimulation at 20 mA.At L2-L3 and L4 I was able to turn my attention to the decompression. decompression was performed with a combination of rongeurs, curettes, Kerrison rongeurs and a ball-tip feeler. All of the bone that was removed was stripped and morcellized for use as autogenous bone graft later in the case. I was able to obtain good central decompression as well as wide bilateral foraminal decompression At both L3 4 and at L2-3. There is no evidence of dural tear or leak. Good hemostasis was maintained. The wound was irrigated and suctioned dry.At L2-3 there is some adhesion of the dura to the undersurface of the facet joint as able to peel this away get good release of the traversing nerve root and exiting nerve roots. I was able get excellent wide decompression bilaterally at L2-3 and L3 4 I performed a complete facetectomy atL3 4l on the most symptomatic side On the right. All bone that was removed was saved for local autogenous bone grafting. I was able to gain access to the disc space at the appropriate level/levels At L3 4. Good hemostasis was maintained. I was able to protect the neurologic structures. there is some disc protrusion Bon discectomy was performed. This provided further decompression. I was also able to perform complete discectomy and endplate preparation with a combination of pituitary curettes, rasps and scrapers. With the interbody space prepared, I was able to do appropriate sizing. The appropriate size cage was chosen. The wound was irrigated and suctioned dry. The interbody space was packed with local autogenous bone graft and a small portion of bone graft substitute, as was the cage itself. Protecting the soft tissue structures, I was able place the cage in good alignment and good position with good fit and fill. the disc has been quite collapsed and I was able to regain some realignment with the discectomy and placement of the interbody graft. There is no evidence of extrusion of the graft material nor protrusion of the interbody device. the L2-3 disc was completely collapsed and I had some concern as to disrupting the conus at that level with TLIF I chose not to perform a interbody posterior approach at that level. The wound was irrigated and suctioned dry. With the hardware intact, intraoperative x-ray was again taken which showed good alignment and position of the hardware at the appropriate levels At L2-3 and 4. We were then able to measure, contour and place the rods and appropriate hardware bilaterally. I was able to get restore some alignment of the scoliosis. I was able to place capcrews, tighten them down, and torque them off appropriately. With this intact I was able to place the local autogenous graft with additional bone graft enhancer as necessary into the posterior lateral gutters bilaterally. With the bone graft intact, a stable construct, and good decompression at the appropriate levels, we were able to proceed with closure. Good hemostasis was maintained. There is no evidence of dural tear or leak. The fascia was closed for a watertight closure. The subcutaneous tissue was closed over a superficial drain. The subcuticular tissue was closed with absorbable suture. The wound was cleaned and dried and dressed with the appropriate dressing. The drapes were broken down. The patient was gently rolled back onto their hospital bed being careful to maintain their cervical spine and good neutral alignment and position. They were woken up by anesthesia, extubated, and brought to the recovery room in good stable condition. The patient will be admitted to the hospital for appropriate postoperative care, medical management and monitoring. We will continue to follow them closely about the postoperative course.
--- NOTE | 2022-02-19 13:04 | FL ---
EXAMINATION TYPE: FL guidance operating room DATE OF EXAM: 02/19/2022 HISTORY: Fluoroscopy time 21 seconds of fluoroscopy provided. IMPRESSION: 1. Fluoroscopy time.
--- NOTE | 2022-02-19 13:04 | XR ---
EXAM TYPE: LUMBAR SPINE X RAY SERIES COMPARISON: NONE HISTORY: Postop TECHNIQUE: 3 intraoperative views are submitted. FINDINGS: Limited intraoperative resolution images are obtained. Postsurgical alignment is near anatomic. IMPRESSION: 1. Postop.
[2022-02-19] MEDS: HYDROmorphone 1 MG/ML 1 ML SYRINGE IVP PRN ×2 (13:49→21:24)
[2022-02-19] MEDS: OXYBUTYNIN XL 5 MG TAB.ER.24 PO SCH (13:56)
[2022-02-19] MEDS: CYCLOBENZAPRINE 10 MG TAB PO PRN (18:09)
[2022-02-19] MEDS: HYDROcodone/APAP 5-325MG 1 EACH TAB PO PRN (18:09)
[2022-02-19] MEDS: lisinopriL 5 MG TAB PO SCH (21:24)
[2022-02-19] MEDS: amLODIPine 2.5 MG TAB PO SCH (21:24)
[2022-02-19] MEDS: NITROFURANTOIN MONOHYD/M-CRYST 100 MG CAP PO SCH (21:24)
[2022-02-19] MEDS: CHOLECALCIFEROL 25 MCG (1000 IU) TABLET PO SCH (21:24)
[2022-02-19] MEDS: GABAPENTIN 300 MG CAP PO SCH (21:24)
[2022-02-19] MEDS: ATORVASTATIN 40 MG TAB PO SCH (21:24)
[2022-02-20] MEDS: HYDROcodone/APAP 5-325MG 1 EACH TAB PO PRN ×4 (02:30→21:47)
--- NOTE | 2022-02-20 03:21 | CONS ---
CONSULTATION REASON FOR CONSULTATION: Advice regarding hypertension, hyperlipidemia, requested by Surgery. HISTORY OF PRESENT ILLNESS: This 71-year-old woman with a past medical history multiple medical problems including hypertension, hyperlipidemia, followed by Dr. Barbosa in the outpatient setting, underwent lumbar laminectomy and fusion, decompression by Dr. Campos, L2 to L4. The patient tolerated the procedure well. The patient is slightly drowsy after the surgery. Otherwise, there is no history of any fever, rigors, chills, palpitations, shortness of breath at this time. PAST MEDICAL HISTORY: Reviewed and included hypertension and hyperlipidemia. The rest of the history and the chart is reviewed. HOME MEDICATIONS: Reviewed and include nitrofurantoin, the dose and rest of medications noted. ALLERGIES: None. FAMILY HISTORY: History of dementia and anxiety. SOCIAL HISTORY: Previous history of smoker. REVIEW OF SYSTEMS: A 14-point review of systems is negative except as mentioned earlier. PHYSICAL EXAMINATION: VITAL SIGNS: Pulse is 94, blood pressure 119/57, respirations 16. HEENT: Conjunctivae normal. Oral mucosa moist. NECK: No jugular venous distention. CARDIOVASCULAR: S1 and S2 present. No rhonchi. No crackles. ABDOMEN: Soft, nontender. LEGS: No edema. No swelling. NERVOUS SYSTEM: No focal deficit. SKIN: No ulcers, rash, bleeding. JOINTS: Back, status post surgery. LABORATORY DATA: The preop labs are reviewed, otherwise, current labs are not available. ASSESSMENT: 1. Status post lumbar laminectomy for degenerative joint disease. 2. Hypertension. 3. Hyperlipidemia. 4. History of degenerative joint disease. 5. History of back surgery. 6. History of renal disease. RECOMMENDATIONS AND DISCUSSION: In this 71-year-old woman who presented with multiple medical issues at this time, I recommend to continue the current medications, symptomatic treatment, resume the home medications. I recommend repeat labs in the morning and symptomatic treatment. Otherwise, incentive spirometry, DVT prophylaxis. Further recommendations to follow. See orders for the details. MMODL / IJN: [id number] /
[2022-02-20] MEDS: CYCLOBENZAPRINE 10 MG TAB PO PRN (08:28)
[2022-02-20] MEDS: NITROFURANTOIN MONOHYD/M-CRYST 100 MG CAP PO SCH ×2 (08:29→21:19)
[2022-02-20] MEDS: SENNOSIDES-DOCUSATE SODIUM 1 EACH TAB PO SCH (08:29)
[2022-02-20] MEDS: CHOLECALCIFEROL 25 MCG (1000 IU) TABLET PO SCH ×2 (08:29→21:20)
[2022-02-20] MEDS: FLUoxetine HCL 20 MG CAP PO SCH (08:29)
[2022-02-20] MEDS: GABAPENTIN 300 MG CAP PO SCH ×2 (08:29→21:20)
[2022-02-20] MEDS: PANTOPRAZOLE 40 MG TABLET PO SCH (08:29)
--- NOTE | 2022-02-20 09:00 | P.PN ---
Progress Note - Text Progress Note Date: 02/20/22 Orthopedic Spine History of present illness: Patient is a pleasant 71-year-old female who is seen and examined at the bedside following posterior lateral decompression and fusion performed yesterday. Patient states they are doing okay post operatively. She is currently resting comfortably in bed. She states her pain is in medically controlled. Currently does not complain of nausea, vomiting, fever, or chills. Patient states pain has been adequately controlled. Patient is eating and voiding freely without difficulty. Drain remains intact at the surgical site. Sams catheter remains intact. Postoperatively, patient has been experiencing new onset upper extremity shaking/tremor bilaterally. When trying to hold a phone or cup the object shakes significantly. She's had difficulty using her phone because of this. She states prior to surgery she has had some numbness in her hands for a couple months but was not having any difficulty with the function of her hands bilaterally. Other than recently starting Macrobid for a UTI, she has not lani nged her outpatient medications. She has not had difficulty with pain medication in the past but also states her previous lumbar fusion was approximately 11 years ago. Consultation has been placed for medicine for medical management postoperatively. Physical Exam Lumbar Fusion: Status post surgical day number 1 Patient is awake, alert, and oriented 3 Vital signs stable Good chest excursion with deep inspiration and expiration Dorsiflexion, plantarflexion, and extensor hallucis longus positive sustained bilaterally No signs or symptoms of DVT; no calf pain; pneumatic cuffs intact bilateral lower extremities Optifoam dressings are clean, dry, and intact over the lumbar spine and right iliac crest; no erythema, purulence, or signs of infection Surgical drain remains intact Neurovascularly intact bilaterally lower extremities Evidence of some upper extremity shaking/tremor bilaterally which is exaggerated when the patient attempts to hold an object Sams catheter intact Assessment: Status post L23 and L3-4 open posterior lateral decompression and fusion with transforaminal lumbar interbody fusion of L3-4 with removal of hardware at L4-5 and L5-S1 Low back pain Degenerative scoliosis L2-3 severe spinal stenosis L3-4 spinal stenosis History of previous lumbar decompression fusion with retained hardware L4-5 and L5-S1 Neurogenic claudication Lumbar facet arthrosis Lumbar degenerative disc disease Lower extremity radiculopathy Hypertension Hyperlipidemia History of kidney disease Plan: 1. Ambulate as tolerated; work with Physical Therapy to increase mobilization 2. Continue pain control with IV and oral medications; will plan to begin weaning the patient off of IV narcotic medication in anticipation for discharge home in the next 1-2 days 3. Dressings to remain intact with Optifoam; patient may shower with dressings intact; drain will remain intact until tomorrow at which time we will plan to discontinue the drain 4. Medical management can continue to manage patient for patient's other medical diagnoses including hypertension, hyperlipidemia, and history of kidney disease. Patient is experiencing new onset upper extremity shaking/tremor and has had difficulty using her hands to hold objects. She has some numbness in her hands prior to surgical intervention but did not have difficulty with her hand function. This was discussed with nursing. We did discuss we will check labs and also have this further addressed by medicine. Labs were ordered this morning but the results are not available yet. We did discuss the shaking/tremor does not correlate well with her lumbar spine. It is unclear if this could be due to some of her postoperative medications. Patient does still require pain medicine postoperatively as her open lumbar fusion with removal of hardware was less than 24 hours ago. We will continue to follow the patient closely. 5. Sams catheter will be discontinued once patient is able to increase her mobility and ambulation 6. Patient can follow-up with Rob Marie PA-C or Dr. Francisco Javier Campos at [facility] in 2-3 weeks following discharge
[2022-02-20 10:23] LABS: HCT 32.6 % (37.2-46.3); HGB 9.6 g/dL (12.0-15.0); MCH 25.7 pg (27.0-32.0); MCHC 29.4 g/dL (32.0-37.0); MCV 87.4 fL (80.0-97.0); Mean Platelet Volume 10.4 fL (9.5-12.2); NRBC Per 100 WBC 0 /100 WBCS (0.0-0.0); Platelet Count 231 X 10*3/uL (140-440); RBC 3.73 X 10*6/uL (4.10-5.20); RDW 15.8 % (11.5-14.5)
[2022-02-20 10:30] LABS: African American GFR (CKD) 57.7 (60.0-200.0); Anion Gap 7.5 mmol/L (10.00-18.00); BUN/Creat Ratio 17.09 Ratio (12.00-20.00); Blood Urea Nitrogen 18.8 mg/dL (9.0-27.0); Calcium 8.6 mg/dL (8.7-10.3); Carbon Dioxide 25.5 mmol/L (20.0-27.5); Non-African American GFR(CKD) 49.8 (60.0-200.0); Potassium 4.9 mmol/L (3.5-5.5)
[2022-02-20 11:59] LABS: Basophils # (A) 0.02 X 10*3/uL (0.00-0.10); Basophils % (A) 0.1 %; Eosinophils # (A) 0 X 10*3/uL (0.04-0.35); Eosinophils % (A) 0 %; Immature Grans, Automated 0.7 %; Lymphocytes # (A) 0.84 X 10*3/uL (0.90-5.00); Lymphocytes % (A) 4.8 %; Monocytes % (A) 12.6 %; Neutrophils # (A) 14.22 X 10*3/uL (1.80-7.70); Neutrophils % (A) 81.8 %
--- NOTE | 2022-02-20 15:08 | P.CNNES ---
History of Present Illness Consult date: 02/20/22 Requesting physician: Rob Marie Reason for Consult: acute post-op intentional UE tremor History of Present Illness: This a 71-year-old woman with severe lumbar spinal stenosis and L3-L4 and had a history of prior lumbar decompression and fusion over L4 to S1 with history of lower extremity radiculopathy neurogenic claudication who had decompression and fusion of lumbosacral on 02/19/2022. Neurology is consulted for intention tremor of the upper extremity edema after surgery. According to patient she is having tremor of upper and lower since having surgery, denies any urinary or bowel incontinence. She just feels weak since the surgery. According to the patient's nurse the patient is unsteady walk-in and has tremors of upper and lower but no loss of conscious, urinary bowel incontinence or any foaming around the mouth. Initial BUN creatinine is within normal limits the sugars 123 and calcium is 8.6. Review of Systems Review of system: The 12 point system was reviewed and apparent positive and negative per HPI. Past Medical History Past Medical History: Cancer, GERD/Reflux, Hyperlipidemia, Hypertension, Osteoar thritis (OA), Renal Disease Additional Past Medical History / Comment(s): chronic back pain, neuropathy in feet, intermittent pain in back of upper right leg. heart murmur, peptic ulcer disease, hx hiatal hernia, overactive bladder, skin cancer. [facility] History of Any Multi-Drug Resistant Organisms: None Reported Past Surgical History: Back Surgery, Heart Catheterization, Joint Replacement Additional Past Surgical History / Comment(s): claudia to lower back removed 02/19/22, bilateral eye lens replacement, left knee replacement. skin cancer removed from face and left hand. Colonoscopy 2019. PAIN CLINIC PROCEDURES Past Anesthesia/Blood Transfusion Reactions: No Reported Reaction Additional Past Anesthesia/Blood Transfusion Reaction / Comment(s): some sort problem w/heart after knee replacement in [place], sent to [facility] in [place], had heart cath. & everything was fine w/it per pt. Past Psychological History: Anxiety, Depression, Panic Disorder Additional Psychological History / Comment(s): recently started having panic attacks- large crowds. Smoking Status: Former smoker Past Alcohol Use History: Rare Additional Past Alcohol Use History / Comment(s): STARTED SMOKING AT AGE 16 quit smoking 1977, 1 1/2 PPD Past Drug Use History: None Reported Additional Drug Use History / Comment(s): CBD oil occ. use - Past Family History Mother Family Medical History: Dementia Additional Family Medical History / Comment(s): Anxiety. Father Family Medical History: Dementia Additional Family Medical History / Comment(s): Alzheimer's dz Medications and Allergies Home Medications Medication Instructions Recorded Confirmed Type Cholecalciferol [Vitamin D3 (25 1,000 unit PO BID 10/12/18 02/19/22 History Mcg = 1000 Iu)] FLUoxetine HCL [PROzac] 40 mg PO DAILY 10/12/18 02/19/22 History Gabapentin [Neurontin] 600 mg PO BID 10/12/18 02/19/22 History Oxybutynin Xl [Ditropan XL] 5 mg PO 1430 10/12/18 02/19/22 History Enalapril [Vasotec] 2.5 mg PO HS 10/30/18 02/19/22 History Omeprazole [PriLOSEC] 40 mg PO DAILY 12/12/18 02/19/22 History amLODIPine BESYLATE [Norvasc] 2.5 mg PO HS 10/20/19 02/19/22 History Acetaminophen-Codeine 300-30mg 1 - 2 tab PO Q4-6H PRN 02/07/21 02/19/22 History [Tylenol w/codeine #3] Acetaminophen [Tylenol Extra 500 mg PO Q6H PRN 05/04/21 02/19/22 History Strength] Atorvastatin [Lipitor] 40 mg PO HS 02/15/22 02/19/22 History nitrofurantoin macrocrystaL 100 mg PO BID 02/19/22 02/19/22 History [Nitrofurantoin] Allergies Allergy/AdvReac Type Severity Reaction Status Date / Time No Known Allergies Allergy Verified 02/19/22 06:09 Physical Examination - Vital Signs Vital Signs: Vital Signs Temp Pulse Resp BP Pulse Ox 02/20/22 07:16 98.2 F 96 18 118/70 95 02/20/22 02:00 99.5 F 102 H 122/72 96 02/19/22 21:24 98 18 02/19/22 19:30 97.9 F 98 18 109/69 96 02/19/22 14:00 97.9 F 101 H 17 104/65 96 Intake and Output 02/19/22 02/20/22 02/20/22 22:59 06:59 14:59 Output Total 160 Balance -160 Output: Drainage 160 Medial Back 160 Other: Voiding Method Indwelling Catheter GENERAL: The patient is lying in bed and is not in acute distress. CHEST: The heart rate is regular rate rhythm. No murmurs to auscultation. LUNG: Clear to auscultation bilaterally no wheezing noted throughout. Not labored breathing. ABDOMEN/GI: Bowel sounds present in all 4 quadrants. No tenderness to palpation throughout. NEUROLOGICAL: Higher mental function: The patient is awake, alert, oriented to self, place and time. Patient is following commands. No aphasia and no neglect. Cranial nerves: The pupils are round, equal and reactive to light and accommoda tion. Visual [place] are full to confrontation throughout. Extraocular movement is intact no nystagmus is noted. Facial sensation is normal to touch throughout. The facial strength is normal throughout. Hearing is normal bilaterally to hand rub. Tongue is midline and moved [id number] without any difficulty. No dysarthria is noted. Shoulder shrug is normal bilaterally. Motor: Gait is two person assist. The strength is hard to assess because of generalized weakness but had at least 4+ uppers. Left lower is 4+. Right lower is 3 and distal is 4. Normal tone and bulk. Had resting tremor of uppers and lowers. Cerebellum: Normal finger to nose bilaterally. Sensation: Sensation is normal to touch throughout. Reflexes (right/left): 1+ throughout except left knee is 2+ and right knee is 0- 1.. Plantars are mute bilaterally. Results - Laboratory Findings CBC and BMP: 02/20/22 06:35 02/20/22 06:35 Abnormal Lab Findings: Abnormal Labs 02/20/22 02/20/22 06:35 06:35 WBC 17.40 H RBC 3.73 L Hgb 9.6 L Hct 32.6 L MCH 25.7 L MCHC 29.4 L RDW 15.8 H Immature Gran # 0.12 H Neutrophils # 14.22 H Lymphocytes # 0.84 L Monocytes # 2.20 H Eosinophils # 0 L Anion Gap 7.50 L Est GFR (CKD-EPI)AfAm 57.7 L Est GFR (CKD-EPI)NonAf 49.8 L Glucose 123 H Calcium 8.6 L Assessment and Plan Assessment: Tremor of uppers > lowers post-op (without LOC, urinary or bowel incontinence, foaming around the mouth) of unknown etiology. Possibly medication side-effects (pain med's consisting of opiate and Gabapentin and Decadron use) severe lumbar spinal stenosis s/p decompression and fusion of lumbosacral on 02/19/2022 History of prior lumbar decompression and fusion over L4 to S1 Lumbosacra radiculopathy Hypertension but currently blood pressure is controlled Hyperlipidemia Plan: I ordered TSH, ionized calcium. I ordered a routine EEG to rule out any seizure or add discharges was seems unlikely. I also ordered CT of the head. PT and OT are consulted If possible avoid pain medication as much as possible. We'll defer the rest of the management to the orthopedic team in the primary team Plan discussed with the patient and her nurse. Thank you for the consultation Time with Patient: Greater than 30
--- NOTE | 2022-02-20 15:27 | CT ---
EXAMINATION TYPE: CT brain wo con DATE OF EXAM: 02/20/2022 COMPARISON: None HISTORY: tremor. recent back sx CT DLP: 1272 mGycm Automated exposure control for dose reduction was used. FINDINGS: Mild to moderate generalized degenerative change. There are areas of low attenuation within the periv entricular white matter which are nonspecific. There is no evidence of acute hemorrhage or mass effec t. No midline shifts. Orbits are symmetric. Calvarium intact. Hyperostosis of the frontal bone. A partially empty sella tur cica. Craniocervical junction maintained. IMPRESSION: MILD GENERALIZED DEGENERATIVE CHANGE WITH NONSPECIFIC WHITE MATTER CHANGES MOST TYPICAL REMOTE ISCHEM IA. IF CONCERN FOR ACUTE ISCHEMIA CORRELATE WITH MRI AND DIFFUSION IMAGING. NO ACUTE HEMORRHAGE OR MASS EFFECT.
[2022-02-20] MEDS: OXYBUTYNIN XL 5 MG TAB.ER.24 PO SCH (15:34)
[2022-02-20] MEDS: FOLIC ACID 1 MG TAB PO SCH (15:34)
[2022-02-20] MEDS: MULTIVITAMINS, THERA 1 EACH TAB PO SCH (15:34)
[2022-02-20] MEDS: THIAMINE 100 MG TAB PO SCH (15:35)
[2022-02-20 16:30] LABS: Ionized Calcium 4.9 mg/dL (4.5-5.3)
[2022-02-20] MEDS: ATORVASTATIN 40 MG TAB PO SCH (21:19)
[2022-02-20] MEDS: lisinopriL 5 MG TAB PO SCH (21:20)
[2022-02-20] MEDS: amLODIPine 2.5 MG TAB PO SCH (21:20)
--- NOTE | 2022-02-21 02:22 | EEG ---
ELECTROENCEPHALOGRAM REPORT CLINICAL HISTORY: This is a 71-year-old woman with uncontrollable tremor. The video EEG is ordered to rule out seizure epileptiform activity. RELEVANT MEDICATION: Gabapentin. EEG TYPE: A routine 21-channel EEG is performed with video using the 10/20 electrode placement system. DESCRIPTION: Wakefulness is only obtained. During awake state, the posterior-dominant rhythm consists of gvs-pb-[id number] voltage of 8.5 to 9.5 hertz activity that is well modulated, well sustained. There was no physiological stage 2 sleep architecture. At times, the background consists of diffuse delta intermixed with theta on rare occurrence. There is no focal slowing. Interictal and ictal is none. ACTIVATION PROCEDURE: Photic stimulation did not evoke a posterior driving response. There is no abnormality during the photic stimulation. Hyperventilation is not performed. CLINICAL INTERPRETATION: This is an abnormal routine EEG. The background slowing is suggestive of mild encephalopathy of unknown etiology. Otherwise, there is no focal slowing, epileptiform discharges, or seizure during this EEG. Clinical correlation is recommended. MMRUPALL / IJN: [id number] /
--- NOTE | 2022-02-21 03:28 | PN ---
PROGRESS NOTE DATE OF SERVICE: 02/20/2022 SUBJECTIVE: This 71-year-old woman, who was admitted with lumbar laminectomy, is being closely monitored at this time. The patient weakness. OBJECTIVE: VITAL SIGNS: Pulse is 96, blood pressure n, respirations 18. CHEST: Clear to auscultation. CARDIOVASCULAR: n ABDOMEN: Soft. NERVOUS SYSTEM: Nonfocal. LABORATORY DATA: WBC 17.4. The rest of labs are noted. ASSESSMENT: 1. Status post lumbar laminectomy and degenerative joint disease. 2. Hypertension. 3. Hyperlipidemia. 4. Increased WBC, possibly reactive. 5. History of degenerative joint disease. 6. History of back surgery. 7. History of renal disease. RECOMMENDATIONS: I recommend to continue current. I would recommend to repeat labs, UA, and portable chest x-ray also to ensure normalcy, and further recommendations to follow. ANNE MARIE / OCTAVIANON: [id number] / MTDD
[2022-02-21] MEDS: HYDROcodone/APAP 5-325MG 1 EACH TAB PO PRN ×3 (04:31→18:32)
--- NOTE | 2022-02-21 08:47 | XR ---
EXAMINATION TYPE: XR chest 1V portable DATE OF EXAM: 02/21/2022 COMPARISON: 02/13/2022 HISTORY: Cough TECHNIQUE: Single frontal view of the chest is obtained. FINDINGS: There is no focal air space opacity, pleural effusion, or pneumothorax seen. The cardiac silhouette size is mildly enlarged. The osseous structures are intact. Hypertrophic and degenerativ e changes of the spine. Atherosclerotic change aorta. IMPRESSION: No acute process.
[2022-02-21 09:22] LABS: Basophils # (A) 0.03 X 10*3/uL (0.00-0.10); Basophils % (A) 0.2 %; Eosinophils # (A) 0.09 X 10*3/uL (0.04-0.35); Eosinophils % (A) 0.5 %; HCT 31.4 % (37.2-46.3); HGB 9.4 g/dL (12.0-15.0); Immature Grans, Automated 0.6 %; Lymphocytes # (A) 0.77 X 10*3/uL (0.90-5.00); Lymphocytes % (A) 4.7 %; MCH 26.6 pg (27.0-32.0); MCHC 29.9 g/dL (32.0-37.0); Monocytes % (A) 11.6 %; NRBC Per 100 WBC 0 /100 WBCS (0.0-0.0); Neutrophils # (A) 13.48 X 10*3/uL (1.80-7.70); Neutrophils % (A) 82.4 %; Platelet Count 210 X 10*3/uL (140-440); RBC 3.53 X 10*6/uL (4.10-5.20); RDW 15.7 % (11.5-14.5); WBC 16.37 X 10*3/uL (4.50-10.00)
[2022-02-21 09:37] LABS: African American GFR (CKD) 64.7 (60.0-200.0); Anion Gap 7.4 mmol/L (10.00-18.00); BUN/Creat Ratio 21.8 Ratio (12.00-20.00); Blood Urea Nitrogen 21.8 mg/dL (9.0-27.0); Calcium 8.8 mg/dL (8.7-10.3); Carbon Dioxide 26.6 mmol/L (20.0-27.5); Non-African American GFR(CKD) 55.8 (60.0-200.0); Potassium 4.3 mmol/L (3.5-5.5)
[2022-02-21] MEDS: NITROFURANTOIN MONOHYD/M-CRYST 100 MG CAP PO SCH ×2 (10:44→20:40)
[2022-02-21] MEDS: GABAPENTIN 300 MG CAP PO SCH ×2 (10:44→20:40)
[2022-02-21] MEDS: FOLIC ACID 1 MG TAB PO SCH (10:44)
[2022-02-21] MEDS: THIAMINE 100 MG TAB PO SCH (10:45)
[2022-02-21] MEDS: PANTOPRAZOLE 40 MG TABLET PO SCH (10:45)
[2022-02-21] MEDS: MULTIVITAMINS, THERA 1 EACH TAB PO SCH (10:45)
[2022-02-21] MEDS: FLUoxetine HCL 20 MG CAP PO SCH (10:45)
[2022-02-21] MEDS: CYCLOBENZAPRINE 10 MG TAB PO PRN ×2 (10:45→18:33)
[2022-02-21] MEDS: CHOLECALCIFEROL 25 MCG (1000 IU) TABLET PO SCH ×2 (10:45→20:40)
[2022-02-21] MEDS: SENNOSIDES-DOCUSATE SODIUM 1 EACH TAB PO SCH (10:47)
--- NOTE | 2022-02-21 11:19 | P.PN ---
Progress Note - Text Progress Note Date: 02/21/22 Orthopedic Spine History of present illness: Patient is a pleasant 71-year-old female who is seen and examined at the bedside following posterior lateral decompression and fusion performed Saturday. Patient states they are doing okay post operatively. She has had improvement as compared to yesterday. She is currently sitting at the bedside working with physical therapy. She states her pain is in medically controlled. Her pain is being well controlled with oral medications. She is not requiring any pain medicine. Currently does not complain of nausea, vomiting, fever, or chills. Patient is eating and voiding freely without difficulty. Drain remains intact at the surgical site with some ongoing drainage. Sams catheter was discontinued. Postoperatively, patient has been experiencing new onset upper extremity shaking/tremor bilaterally. This was significant yesterday. She was seen and examined by neurology and underwent further testing without significant findings. This shaking is has had improvement today as compared to yesterday. She feels she is returning more to her baseline. Neurology is following up with further lab testing and EEG testing. Patient states she is improving but does not feel she would be stable enough for discharge home. She would be willing to consider the possibility discharged to a rehabilitation facility. Patient is being seen and examined by medicine for medical management. Physical Exam Lumbar Fusion: Status post surgical day number 2 Patient is awake, alert, and oriented 3 Vital signs stable Good chest excursion with deep inspiration and expiration Dorsiflexion, plantarflexion, and extensor hallucis longus positive sustained bilaterally No signs or symptoms of DVT; no calf pain; pneumatic cuffs intact bilateral lower extremities Optifoam dressings are clean, dry, and intact over the lumbar spine and right iliac crest; no erythema, purulence, or signs of infection Surgical drain remains intact with some blood in the drain Neurovascularly intact bilaterally lower extremities Evidence of some upper extremity shaking/tremor bilaterally which is exaggerated when the patient attempts to hold an object Assessment: Status post L2-3 and L3-4 open posterior lateral decompression and fusion with transforaminal lumbar interbody fusion of L3-4 with removal of hardware at L4-5 and L5-S1 Low back pain Degenerative scoliosis L2-3 severe spinal stenosis L3-4 spinal stenosis History of previous lumbar decompression fusion with retained hardware L4-5 and L5-S1 Neurogenic claudication Lumbar facet arthrosis Lumbar degenerative disc disease Lower extremity radiculopathy Hypertension Hyperlipidemia History of kidney disease Acute postoperative intentional upper extremity tremor bilaterally, improving Plan: 1. Ambulate as tolerated; work with Physical Therapy to increase mobilization 2. Continue pain control wit oral medications; her pain is being medically controlled with oral hydrocodone, cyclobenzaprine, and gabapentin. MAPS has been reviewed. An "Opiod Start Talking" Form has been signed and placed in the patient's chart. A prescription has been written for hydrocodone 5 mg/25 mg, 1 tab every 6 hours as needed for acute pain, dispensed #28. Prescription for baclofen 10 mg 1 tab 3 times a day as needed for muscle spasm, dispensed #60. Prescription for gabapentin 600 mg 1 tab twice a day, as needed for pain, dispensed #14. These prescriptions are written, signed, and placed in the patient's chart for discharge. 3. Dressings to remain intact with Optifoam; patient may shower with dressings intact; drain will remain intact until tomorrow, 02/22/2022, at which time we will plan to discontinue the drain 4. Medical management can continue to manage patient for patient's other medica l diagnoses including hypertension, hyperlipidemia, and history of kidney disease. 5. Patient is experiencing new onset upper extremity shaking/tremor and has had difficulty using her hands to hold objects. She has some numbness in her hands prior to surgical intervention but did not have difficulty with her hand function. She was seen and examined by neurology and underwent further testing without significant findings. We will plan for EEG testing and other lab testing. Patient's symptoms have had good improvement as compared to yesterday. She will continue to be seen and examined by neurology in this regard. It is difficult to determine the exact cause of these new onset symptoms. There is some question whether the symptoms could be in relation to her postoperative narcotic medication. She has been with the discontinue IV narcotic medications and her symptoms have improved as compared to yesterday. 6. Patient is progressing slowly postoperatively. We will currently planned for consultation case management to discuss discharged to a rehabilitation facility at the time of discharge. We will continue to follow patient closely. 7. Patient can follow-up with Rob Marie PA-C or Dr. Francisco Javier Campos at [facility] in 2-3 weeks following discharge.
[2022-02-21] MEDS ORDERED: MULTIVITAMINS, THERA 1 EACH TAB PO SCH (12:00)
[2022-02-21] MEDS ORDERED: FOLIC ACID 1 MG TAB PO SCH (12:00)
[2022-02-21] MEDS ORDERED: THIAMINE 100 MG TAB PO SCH (12:00)
[2022-02-21 15:06] LABS: Appearance,Urine Cloudy (Clear); Bacteria,Urine Rare /hpf; Bilirubin,Urine Negative (Negative); Blood,Urine Negative (Negative); Color,Urine Yellow; Glucose,Urine (UA) Negative (Negative); Ketones,Urine Negative (Negative); Leukocyte Esterase,Urine Large (Negative); Mucus,Urine Rare /hpf; Nitrite,Urine Negative (Negative); PH, Urine 5.5 (5.0-8.0); Protein,Urine 1+ (Negative); RBC,Urine 4 /hpf (0-5); Specific Gravity,Urine 1.023 (1.001-1.035); Squamous Epithelial Cell,Urine 9 /hpf (0-4); Urobilinogen,Urine <2.0 mg/dL (<2.0); WBC,Urine 105 /hpf (0-5)
--- NOTE | 2022-02-21 16:05 | P.PN ---
Subjective Progress Note Date: 02/21/22 The patient is seen at bedside and she feels her tremors of extremities is much better today compared to yesterday. The nurse also agree she seems better. Denies any new neurological issues. Objective - Vital Signs Vital signs: Vital Signs Temp 98.1 F 02/21/22 14:00 Pulse 87 02/21/22 14:00 Resp 18 02/21/22 14:00 BP 109/69 02/21/22 14:00 Pulse Ox 97 02/21/22 14:00 FiO2 Intake & Output 02/20/22 02/21/22 02/21/22 18:59 06:59 18:59 Intake Total 120 Output Total 260 60 420 Balance -140 -60 -420 Intake: Oral 120 Output: Drainage 260 60 20 Medial Back 260 60 20 Urine 400 Other: Voiding Method Bedside Commode Bedside Commode # Voids 1 1 - Exam GENERAL: The patient is lying in bed and is not in acute distress. NEUROLOGICAL: Higher mental function: The patient is awake, alert, oriented to self, place and time. Patient is following commands. No aphasia and no neglect. Cranial nerves: The pupils are round, equal and reactive to light and accommodation. Visual apodcaa are full to confrontation throughout. Extraocular movement is intact no nystagmus is noted. Facial sensation is normal to touch throughout. The facial strength is normal throughout. Hearing is normal bilaterally to hand rub. Tongue is midline and moved [id number] without any difficulty. No dysarthria is noted. Shoulder shrug is normal bilaterally. Motor: Gait is two person assist. The strength is hard to assess because of generalized weakness but had at least 4+ uppers. Left lower is 4+. Right lower is 3 and distal is 4. Normal tone and bulk. Tremors are much improved and felt rare if any of uppers. Cerebellum: Normal finger to nose bilaterally. Sensation: Sensation is normal to touch throughout. Reflexes (right/left): 1+ throughout except left knee is 2+ and right knee is 0- 1.. Plantars are mute bilaterally. SOME OF THE WORK-UP DURING THIS VISIT CONSISTED OF: TSH: 0.878 ionizined Calcium: 4.9 (normal) CT of the head is reported as mild generalized degenerative change with no specific white matter changes most typical remote ischemia. No acute hemorrhage or mass effect. EEG is abnormal. The background slowing suggestive of mild encephalopathy of unknown etiology. Otherwise there is no focal slowing, epileptiform discharges or seizure on the easy - Labs CBC & Chem 7: 02/21/22 06:28 02/21/22 06:28 Labs: Abnormal Lab Results - Last 24 Hours (Table) 02/21/22 02/21/22 02/21/22 Range/Units 06:28 06:28 14:59 WBC 16.37 H (4.50-10.00) X 10*3/uL RBC 3.53 L (4.10-5.20) X 10*6/uL Hgb 9.4 L (12.0-15.0) g/dL Hct 31.4 L (37.2-46.3) % MCH 26.6 L (27.0-32.0) pg MCHC 29.9 L (32.0-37.0) g/dL RDW 15.7 H (11.5-14.5) % Immature Gran # 0.10 H (0.00-0.04) X 10*3/uL Neutrophils # 13.48 H (1.80-7.70) X 10*3/uL Lymphocytes # 0.77 L (0.90-5.00) X 10*3/uL Monocytes # 1.90 H (0.20-1.00) X 10*3/uL Anion Gap 7.40 L (10.00-18.00) mmol/L Est GFR (CKD-EPI)NonAf 55.8 L (60.0-200.0) BUN/Creatinine Ratio 21.80 H (12.00-20.00) Ratio Glucose 129 H (70-110) mg/dL Urine Appearance Cloudy H (Clear) Urine Protein 1+ H (Negative) Ur Leukocyte Esterase Large H (Negative) Urine WBC 105 H (0-5) /hpf Ur Squamous Epith Cells 9 H (0-4) /hpf Urine Bacteria Rare H (None) /hpf Urine Mucus Rare H (None) /hpf Assessment and Plan Assessment: Tremor of uppers > lowers post-op (without LOC, urinary or bowel incontinence, foaming around the mouth) of unknown etiology. Possibly medication side-effects (pain med's consisting of opiate and Gabapentin and Decadron use)and post-off effect---today improved. No seizure on EEG. Severe lumbar spinal stenosis s/p decompression and fusion of lumbosacral on 02/19/2022 History of prior lumbar decompression and fusion over L4 to S1 Lumbosacra radiculopathy Hypertension but currently blood pressure is controlled Hyperlipidemia Plan: If possible avoid pain medication as much as possible. Can go down on Gabapentin from 600mg 1 tab bid to 300mg bid if continues to have tremors. PT and OT are consulted We'll defer the rest of the management to the orthopedic team in the primary team Plan discussed with the patient and her nurse. Will follow-up sporadically. If continues to be stable and no further tremors, then patient is clear from neurological perspective. Dr. Cole will start neurology service tomorrow A.M. Time with Patient: Less than 30
[2022-02-21] MEDS: OXYBUTYNIN XL 5 MG TAB.ER.24 PO SCH (16:17)
[2022-02-21] MEDS: lisinopriL 5 MG TAB PO SCH (20:40)
[2022-02-21] MEDS: ATORVASTATIN 40 MG TAB PO SCH (20:40)
[2022-02-21] MEDS: amLODIPine 2.5 MG TAB PO SCH (20:40)
--- NOTE | 2022-02-21 23:58 | PN ---
PROGRESS NOTE DATE OF SERVICE: 02/21/2022 SUBJECTIVE: This is a 71-year-old woman who was admitted after lumbar laminectomy, who is being closely monitored. No chest pain. No palpitations. No fever. Complains of back pain. OBJECTIVE: VITAL SIGNS: Pulse is 91, blood pressure 120/70, respirations 18. CHEST: Clear to auscultation. ABDOMEN: Soft. BACK: Status post surgery. LABS: Reviewed. Urinalysis shows possible urinary tract infection. ASSESSMENT: 1. Status post lumbar laminectomy and degenerative joint disease. 2. Hypertension. 3. Possible urinary tract infection. 4. Hyperlipidemia. 5. Increased WBC, possibly reactive. 6. History of degenerative joint disease. 7. History of back surgery. 8. History of renal disease. RECOMMENDATIONS: Recommend to continue current medications and symptomatic treatment. Otherwise, at this time, I would recommend to add empiric antibiotics. Obtain cultures. Further recommendations to follow. MMODL / IJN: [id number] /
[2022-02-22] MEDS: HYDROcodone/APAP 5-325MG 1 EACH TAB PO PRN ×4 (00:17→18:17)
[2022-02-22] MEDS: CYCLOBENZAPRINE 10 MG TAB PO PRN (06:40)
--- NOTE | 2022-02-22 07:33 | P.PN ---
Progress Note - Text Progress Note Date: 02/22/22 Postoperative day #3 Patient is seen and examined today at bedside. The patient has some pain around the surgical site as expected. Pain is being controlled with medication. She is sitting up in bed and moving better. Her shaking and tremors have decreased substantially. Physical Exam Afebrile with stable vital signs Abdomen is soft nontender. Chest has good excursion deep and space expiration The incision site is clean dry and intact. No erythema there is no purulence. The dressing is clear. I discontinued her drain and there is no active drainage. Extremities have not had neurologic change from prior to surgery. She has sustained dorsal flexion plantarflexion and extensor hallucis longus. This morning she is not having any tremors or shaking. Calves and thighs were soft nontender without evidence of DVT. Assessment/Plan Postoperative day #3 status post open decompression and fusion with extension of her prior fusion for her spinal stenosis and degenerative scoliosis Patient is progressing as expected from the surgery in terms of her back. She is making good progress with her mobility. The wound seems to be doing well and her drain was discontinued today The patient is doing much better in terms of her tremors. I appreciate the input from neurology. I think she can continue to well with expectant management and observation in this regard. We will continue to increase the patient's mobilization with therapy. She is requiring significant help and is home by herself. She will need nursing home after discharge which is planned for tomorrow. We will continue pain control with oral or IV medications. We'll continue to follow patient closely.
[2022-02-22] MEDS: SENNOSIDES-DOCUSATE SODIUM 1 EACH TAB PO SCH (08:29)
[2022-02-22] MEDS: GABAPENTIN 300 MG CAP PO SCH ×2 (08:30→21:05)
[2022-02-22] MEDS: CHOLECALCIFEROL 25 MCG (1000 IU) TABLET PO SCH ×2 (08:30→21:04)
[2022-02-22] MEDS: FLUoxetine HCL 20 MG CAP PO SCH (08:30)
[2022-02-22] MEDS: PANTOPRAZOLE 40 MG TABLET PO SCH (08:31)
[2022-02-22] MEDS: NITROFURANTOIN MONOHYD/M-CRYST 100 MG CAP PO SCH ×2 (08:33→21:05)
[2022-02-22 08:47] LABS: Basophils # (A) 0.03 X 10*3/uL (0.00-0.10); Basophils % (A) 0.2 %; Eosinophils # (A) 0.35 X 10*3/uL (0.04-0.35); Eosinophils % (A) 2.6 %; HCT 32.2 % (37.2-46.3); HGB 9.7 g/dL (12.0-15.0); Immature Grans, Automated 0.5 %; Lymphocytes # (A) 1.38 X 10*3/uL (0.90-5.00); Lymphocytes % (A) 10.1 %; MCH 25.9 pg (27.0-32.0); MCHC 30.1 g/dL (32.0-37.0); MCV 86.1 fL (80.0-97.0); Mean Platelet Volume 10.4 fL (9.5-12.2); Monocytes # (A) 1.19 X 10*3/uL (0.20-1.00); Monocytes % (A) 8.7 %; NRBC Per 100 WBC 0 /100 WBCS (0.0-0.0); Neutrophils # (A) 10.66 X 10*3/uL (1.80-7.70); Neutrophils % (A) 77.9 %; Platelet Count 236 X 10*3/uL (140-440); RBC 3.74 X 10*6/uL (4.10-5.20); RDW 15.5 % (11.5-14.5); WBC 13.68 X 10*3/uL (4.50-10.00)
--- NOTE | 2022-02-22 09:54 | P.PN ---
Subjective Progress Note Date: 02/22/22 Patient was seen for a follow-up. Patient initially seen by Dr. Humberto Clay. Please refer to his note for details. Patient is a 71-year-old female who has recent spinal surgery for spinal stenosis, then developed tremors of her upper more than lower extremities. EEG was performed which was negative for any seizure activity. Dr. Clay felt that it was more medication/post op related and was doing better. Patient today tells me that her tremors are completely gone. Patient states her low back is d oing well. Sometimes while sitting or laying, she feels hurting in the muscles all around her hips. She has couple episodes of "weird pain" in the legs, that lasted for less than 30 seconds. It felt like someone was pinching. Denies any constant pain in the legs. Objective - Vital Signs Vital signs: Vital Signs Temp 97.9 F 02/22/22 08:00 Pulse 78 02/22/22 08:00 Resp 17 02/22/22 08:00 BP 114/70 02/22/22 08:00 Pulse Ox 95 02/22/22 08:00 FiO2 Intake & Output 02/21/22 02/22/22 02/22/22 18:59 06:59 18:59 Output Total 420 20 Balance -420 -20 Output: Drainage 20 20 Medial Back 20 20 Urine 400 Other: Voiding Method Bedside Commode Bedside Commode # Voids 2 1 - Exam Patient's mental status, speech and language functions are normal. Cranial nerves are normal. Muscle strength is normal in the upper limbs. Tone is normal bilaterally. No tremors at rest. No parkinsonian features. - Labs CBC & Chem 7: 02/22/22 06:22 02/21/22 06:28 Labs: Abnormal Lab Results - Last 24 Hours (Table) 02/21/22 02/22/22 Range/Units 14:59 06:22 WBC 13.68 H (4.50-10.00) X 10*3/uL RBC 3.74 L (4.10-5.20) X 10*6/uL Hgb 9.7 L (12.0-15.0) g/dL Hct 32.2 L (37.2-46.3) % MCH 25.9 L (27.0-32.0) pg MCHC 30.1 L (32.0-37.0) g/dL RDW 15.5 H (11.5-14.5) % Immature Gran # 0.07 H (0.00-0.04) X 10*3/uL Neutrophils # 10.66 H (1.80-7.70) X 10*3/uL Monocytes # 1.19 H (0.20-1.00) X 10*3/uL Urine Appearance Cloudy H (Clear) Urine Protein 1+ H (Negative) Ur Leukocyte Esterase Large H (Negative) Urine WBC 105 H (0-5) /hpf Ur Squamous Epith Cells 9 H (0-4) /hpf Urine Bacteria Rare H (None) /hpf Urine Mucus Rare H (None) /hpf Microbiology - Last 24 Hours (Table) 02/21/22 15:12 Urine Culture - Preliminary Urine,Voided Assessment and Plan Assessment: Tremor of uppers > lowers post-op, likely metabolic due to postoperative status versus possibly medication side-effects (pain med's consisting of opiate and Gabapentin and Decadron use). Tremors are completely resolved. No seizure on EEG. Severe lumbar spinal stenosis s/p decompression and fusion of lumbosacral on 02/19/2022 History of prior lumbar decompression and fusion over L4 to S1 Lumbosacra radiculopathy Hypertension but currently blood pressure is controlled Hyperlipidemia Plan: Patient's tremors have resolved. No other neurological workup indicated. Continue present medications. If possible avoid pain medication as much as possible. TSH is normal. PT and OT are consulted Neurologically clear for transfer to rehab facility.
[2022-02-22 10:07] LABS: Anion Gap 10.6 mmol/L (10.00-18.00); BUN/Creat Ratio 23.6 Ratio (12.00-20.00); Blood Urea Nitrogen 19.4 mg/dL (9.0-27.0); Calcium 8.9 mg/dL (8.7-10.3); Carbon Dioxide 27.4 mmol/L (20.0-27.5); Non-African American GFR(CKD) 70.8 (60.0-200.0); Potassium 3.8 mmol/L (3.5-5.5)
--- NOTE | 2022-02-22 12:09 | P.PN ---
Subjective This is a pleasant 71 years old female with multiple problems was admitted for severe lumbar stenosis and underwent decompressive surgery with fusion of the lumbar sacral spine on 02/19 with orthopedic team. Medical team were following the patient for medical management as a consult. Patient today's line and chair looks comfortable, denies any specific symptoms, no chest pain or dyspnea. Her back pain still hurts about 67/10 in severity with orthopedic team on the case. From constipation but declined laxative. No abdominal pain or vomiting. On ceftriaxone for possible UTI, when it. Patient today patient denies any dysuria or urgency or change in frequency. She denies any other urinary complaints. Urine culture is pending. Neurology were following the patient for tremor have cleared her for discharge. Trouble resolved. She has no history of smoking or alcohol. Objective - Vital Signs Vital signs: Vital Signs Temp 97.9 F 02/22/22 08:00 Pulse 78 02/22/22 08:00 Resp 17 02/22/22 08:00 BP 114/70 02/22/22 08:00 Pulse Ox 95 02/22/22 08:00 FiO2 Intake & Output 02/21/22 02/22/22 02/22/22 18:59 06:59 18:59 Output Total 420 20 Balance -420 -20 Output: Drainage 20 20 Medial Back 20 20 Urine 400 Other: Voiding Method Bedside Commode Bedside Commode # Voids 2 1 - Exam -GENERAL: The patient is alert and oriented x3, not in any acute distress. Obese HEENT: Pupils are round and equally reacting to light. EOMI. No scleral icterus. No conjunctival pallor. Normocephalic, atraumatic. No pharyngeal erythema. No thyromegaly. CARDIOVASCULAR: S1 and S2 present. No murmurs, rubs, or gallops. PULMONARY: Chest is clear to auscultation, no wheezing or crackles. ABDOMEN: Soft, nontender, nondistended, normoactive bowel sounds. No palpable organomegaly. -MUSCULOSKELETAL: No joint swelling or deformity. Surgical wound with Pitressin in a Place, rest of exam is deferred to surgery team EXTREMITIES: No cyanosis, clubbing, or pedal edema. NEUROLOGICAL: Gross neurological examination did not reveal any focal deficits. SKIN: No rashes. no petechiae. - Labs CBC & Chem 7: 02/22/22 06:22 02/22/22 06:22 Labs: Abnormal Lab Results - Last 24 Hours (Table) 02/21/22 02/22/22 02/22/22 Range/Units 14:59 06:22 06:22 WBC 13.68 H (4.50-10.00) X 10*3/uL RBC 3.74 L (4.10-5.20) X 10*6/uL Hgb 9.7 L (12.0-15.0) g/dL Hct 32.2 L (37.2-46.3) % MCH 25.9 L (27.0-32.0) pg MCHC 30.1 L (32.0-37.0) g/dL RDW 15.5 H (11.5-14.5) % Immature Gran # 0.07 H (0.00-0.04) X 10*3/uL Neutrophils # 10.66 H (1.80-7.70) X 10*3/uL Monocytes # 1.19 H (0.20-1.00) X 10*3/uL BUN/Creatinine Ratio 23.60 H (12.00-20.00) Ratio Urine Appearance Cloudy H (Clear) Urine Protein 1+ H (Negative) Ur Leukocyte Esterase Large H (Negative) Urine WBC 105 H (0-5) /hpf Ur Squamous Epith Cells 9 H (0-4) /hpf Urine Bacteria Rare H (None) /hpf Urine Mucus Rare H (None) /hpf Microbiology - Last 24 Hours (Table) 02/21/22 15:12 Urine Culture - Preliminary Urine,Voided Assessment and Plan Assessment: Severe lumbar stenosis status post decompression and fusion of the lumbosacral spine on 02/19 Possible UTI Chronic kidney disease stage III Femoral resolved. Postop anemia is expected. Leukocytosis most likely reactive, trending down. Plan: Continue with ceftriaxone follow-up urine culture Encourage oral hydration Continue with pain management and DVT prophylaxis as per surgery team Neurology service. The patient. Tremor resolved. Labs and medication were reviewed.. Continue same treatment. Continue with symptomatic treatment. Resume home medication. Monitor labs and vitals. DVT and GI prophylaxis. Further recommendations as per clinical course of the patient DVT prophylaxis: Deferred to surgery team GI Prophylaxis: Ppi PT/OT: May benefit from rehab Prognosis is guarded
[2022-02-22] MEDS: FOLIC ACID 1 MG TAB PO SCH (13:04)
[2022-02-22] MEDS: THIAMINE 100 MG TAB PO SCH (13:04)
[2022-02-22] MEDS: MULTIVITAMINS, THERA 1 EACH TAB PO SCH (13:04)
[2022-02-22] MEDS: OXYBUTYNIN XL 5 MG TAB.ER.24 PO SCH (16:22)
[2022-02-22] MEDS: ATORVASTATIN 40 MG TAB PO SCH (21:04)
[2022-02-22] MEDS: lisinopriL 5 MG TAB PO SCH (21:04)
[2022-02-22] MEDS: amLODIPine 2.5 MG TAB PO SCH (21:04)
[2022-02-23] MEDS: CYCLOBENZAPRINE 10 MG TAB PO PRN ×2 (02:29→08:19)
[2022-02-23] MEDS: HYDROcodone/APAP 5-325MG 1 EACH TAB PO PRN ×3 (02:29→17:23)
[2022-02-23] MEDS: FLUoxetine HCL 20 MG CAP PO SCH (08:16)
[2022-02-23] MEDS: PANTOPRAZOLE 40 MG TABLET PO SCH (08:16)
[2022-02-23] MEDS: CHOLECALCIFEROL 25 MCG (1000 IU) TABLET PO SCH ×2 (08:16→20:41)
[2022-02-23] MEDS: SENNOSIDES-DOCUSATE SODIUM 1 EACH TAB PO SCH (08:16)
[2022-02-23] MEDS: NITROFURANTOIN MONOHYD/M-CRYST 100 MG CAP PO SCH ×2 (08:17→20:41)
[2022-02-23] MEDS: GABAPENTIN 300 MG CAP PO SCH ×2 (08:19→20:41)
[2022-02-23 08:48] LABS: Basophils # (A) 0.03 X 10*3/uL (0.00-0.10); Basophils % (A) 0.3 %; Eosinophils # (A) 0.33 X 10*3/uL (0.04-0.35); Eosinophils % (A) 2.9 %; HCT 30.1 % (37.2-46.3); HGB 9.2 g/dL (12.0-15.0); Immature Grans, Automated 0.4 %; Lymphocytes # (A) 0.89 X 10*3/uL (0.90-5.00); Lymphocytes % (A) 7.9 %; MCH 26.1 pg (27.0-32.0); MCHC 30.6 g/dL (32.0-37.0); MCV 85.3 fL (80.0-97.0); Mean Platelet Volume 10.3 fL (9.5-12.2); Monocytes # (A) 1.26 X 10*3/uL (0.20-1.00); Monocytes % (A) 11.2 %; NRBC Per 100 WBC 0 /100 WBCS (0.0-0.0); Neutrophils # (A) 8.74 X 10*3/uL (1.80-7.70); Neutrophils % (A) 77.3 %; Platelet Count 232 X 10*3/uL (140-440); RBC 3.53 X 10*6/uL (4.10-5.20); RDW 15.6 % (11.5-14.5)
--- NOTE | 2022-02-23 12:40 | P.DS ---
Providers Expected date of discharge: 02/23/22 Attending physician: Dasia Campos Consults: 02/19/22 11:07 Consult Physician Routine Consulting Provider: Anna Manrique Consult Reason/Comments: Medical management Do you want consulting provider notified?: Yes 02/20/22 11:59 Consult Physician Routine Consulting Provider: Humberto Clay Consult Reason/Comments: Acute post-op Intentional UE tremor Do you want consulting provider notified?: Yes Primary care physician: Benny Barbosa - Discharge Diagnosis(es) (1) History of lumbar spinal fusion Patient was admitted to the OR on 02/19/22 to undergo decompression of L2-4, L3- 4 fusion and exploration of prior fusion. She had failed conservative measures as an outpatient and desired to proceed with elective surgery after given informed consent. She underwent the above procedure which she tolerated well without complication. Postoperative hospital course has remained without complication. On day of discharge she is afebrile, vital signs stable, labs within acceptable ranges, tolerating by mouth meds and diet, voiding without difficulty, positive flatus, denies abdominal pain or calf pain, pain is controlled on oral pain medication and has no new complaints. Wound is benign, neurovascular status is intact, calves are soft and nontender, abdomen soft and nontender. Review of systems is negative for numbness, tingling, fever, chills, chest pain, shortness of breath, nausea, vomiting, dizziness, headaches, slurred speech or other. Status: Acute Priority: Medium Procedures: L2-4 decompression, L3-4 fusion, removal hardware/exploration prior fusion Patient Condition at Discharge: Good Plan - Discharge Summary Discharge Rx Participant: No New Discharge Prescriptions: New Sennosides-Docusate Sodium [Senokot-S] 1 tab PO BID PRN #60 tablet PRN Reason: Constipation Baclofen 10 mg PO TID PRN #60 tab PRN Reason: Spasms Gabapentin 600 mg PO BID PRN 7 Days #14 tab PRN Reason: Pain HYDROcodone/APAP 5-325MG [Clyde 5] 1 each PO Q6HR PRN #28 tab PRN Reason: Pain No Action Cholecalciferol [Vitamin D3 (25 Mcg = 1000 Iu)] 1,000 unit PO BID Oxybutynin Xl [Ditropan XL] 5 mg PO 1430 Gabapentin [Neurontin] 600 mg PO BID FLUoxetine HCL [PROzac] 40 mg PO DAILY Enalapril [Vasotec] 2.5 mg PO HS Omeprazole [PriLOSEC] 40 mg PO DAILY amLODIPine BESYLATE [Norvasc] 2.5 mg PO HS Atorvastatin [Lipitor] 40 mg PO HS Acetaminophen-Codeine 300-30mg [Tylenol w/codeine #3] 1 - 2 tab PO Q4-6H PRN PRN Reason: Pain Acetaminophen [Tylenol Extra Strength] 500 mg PO Q6H PRN PRN Reason: Pain nitrofurantoin macrocrystaL [Nitrofurantoin] 100 mg PO BID Discharge Medication List Cholecalciferol [Vitamin D3 (25 Mcg = 1000 Iu)] 1,000 unit PO BID 10/12/18 [History] FLUoxetine HCL [PROzac] 40 mg PO DAILY 10/12/18 [History] Gabapentin [Neurontin] 600 mg PO BID 10/12/18 [History] Oxybutynin Xl [Ditropan XL] 5 mg PO 1430 10/12/18 [History] Enalapril [Vasotec] 2.5 mg PO HS 10/30/18 [History] Omeprazole [PriLOSEC] 40 mg PO DAILY 12/12/18 [History] amLODIPine BESYLATE [Norvasc] 2.5 mg PO HS 10/20/19 [History] Acetaminophen-Codeine 300-30mg [Tylenol w/codeine #3] 1 - 2 tab PO Q4-6H PRN 02/07/21 [History] Acetaminophen [Tylenol Extra Strength] 500 mg PO Q6H PRN 05/04/21 [History] Atorvastatin [Lipitor] 40 mg PO HS 02/15/22 [History] nitrofurantoin macrocrystaL [Nitrofurantoin] 100 mg PO BID 02/19/22 [History] Baclofen 10 mg PO TID PRN #60 tab 02/21/22 [Rx] Gabapentin 600 mg PO BID PRN 7 Days #14 tab 02/21/22 [Rx] HYDROcodone/APAP 5-325MG [Clyde 5] 1 each PO Q6HR PRN #28 tab 02/21/22 [Rx] Sennosides-Docusate Sodium [Senokot-S] 1 tab PO BID PRN #60 tablet 02/21/22 [Rx] Follow up Appointment(s)/Referral(s): Rob Marie, PERLA [PHYSICIAN [employer]] - 2 Weeks (Patient may follow-up with Rob Marie PA-C or Dr. Francisco Javier Campos at [facility] in 2-3 weeks following discharge. ) [facility], [NON-STAFF] - As Needed Residential Home,Health [NON-STAFF] - As Needed Activity/Diet/Wound Care/Special Instructions: 1. Patient may shower with Optifoam dressing intact. 2. Patient may remove Optifoam dressing in 3 days and shower without a dressing at that time. 3. Patient should refrain from driving until at least after their first follow- up appointment in the office. 4. Patient should avoid excessive bending, twisting, lifting; avoid overhead lifting; no lifting greater than 10 pounds 5. Take medications as prescribed 6. Patient should avoid anti-inflammatory medications over the next 6 weeks postoperatively 7. Do not soak in tub Discharge Disposition: TRANSFER TO SNF/ECF
[2022-02-23] MEDS: MULTIVITAMINS, THERA 1 EACH TAB PO SCH (12:41)
[2022-02-23] MEDS: THIAMINE 100 MG TAB PO SCH (12:41)
[2022-02-23] MEDS: OXYBUTYNIN XL 5 MG TAB.ER.24 PO SCH (12:41)
[2022-02-23] MEDS: FOLIC ACID 1 MG TAB PO SCH (12:41)
--- NOTE | 2022-02-23 13:00 | P.PN ---
Subjective This is a pleasant 71 years old female with multiple problems was admitted for severe lumbar stenosis and underwent decompressive surgery with fusion of the lumbar sacral spine on 02/19 with orthopedic team. Medical team were following the patient for medical management as a consult. Patient today's line and chair looks comfortable, denies any specific symptoms, no chest pain or dyspnea. Her back pain still hurts about 67/10 in severity with orthopedic team on the case. From constipation but declined laxative. No abdominal pain or vomiting. On ceftriaxone for possible UTI, when it. Patient today patient denies any dysuria or urgency or change in frequency. She denies any other urinary complaints. Urine culture is pending. Neurology were following the patient for tremor have cleared her for discharge. Trouble resolved. She has no history of smoking or alcohol. 02/23/2022 Patient clinically is doing well, she said she is improving, she denies any chest pain or dyspnea She has no GI symptoms, no diarrhea. She denies any urinary tract symptoms, no dysuria or urgency or change in frequency, she was started on ceftriaxone on admission for suspicion of UTI for abnormal UA however urine culture came back negative today. She finished three- day course of IV antibiotic. No need more antibiotics for UTI upon discharge. Patient finished treatment and she is as symptomatic. Patient still has some constipation most likely secondary to narcotics for her pain control however patient declines any stool laxative 0.04. Patient feels generally weak but she is improving every day, she is telling me she can be considered for discharge today. And she agreeable forgoing to subacute rehab upon discharge. Blood pressure is controlled on Norvasc and lisinopril. Leukocytosis trending down. Hemoglobin stable at 9.2. patient is medically stable Stable discharged today to [facility] Objective - Vital Signs Vital signs: Vital Signs Temp 97.9 F 02/23/22 08:00 Pulse 78 02/23/22 09:00 Resp 16 02/23/22 09:00 BP 115/66 02/23/22 08:00 Pulse Ox 95 02/23/22 08:00 FiO2 Intake & Output 02/22/22 02/23/22 02/23/22 18:59 06:59 18:59 Output Total 100 Balance -100 Output: Urine 100 Other: Voiding Method Toilet Toilet # Voids 4 5 2 - Exam -GENERAL: The patient is alert and oriented x3, not in any acute distress. Obese HEENT: Pupils are round and equally reacting to light. EOMI. No scleral icterus. No conjunctival pallor. Normocephalic, atraumatic. No pharyngeal erythema. No thyromegaly. CARDIOVASCULAR: S1 and S2 present. No murmurs, rubs, or gallops. PULMONARY: Chest is clear to auscultation, no wheezing or crackles. ABDOMEN: Soft, nontender, nondistended, normoactive bowel sounds. No palpable organomegaly. -MUSCULOSKELETAL: No joint swelling or deformity. Surgical wound with Pitressin in a Place, rest of exam is deferred to surgery team EXTREMITIES: No cyanosis, clubbing, or pedal edema. NEUROLOGICAL: Gross neurological examination did not reveal any focal deficits. SKIN: No rashes. no petechiae. - Labs CBC & Chem 7: 02/23/22 06:36 02/22/22 06:22 Labs: Abnormal Lab Results - Last 24 Hours (Table) 02/23/22 Range/Units 06:36 WBC 11.30 H (4.50-10.00) X 10*3/uL RBC 3.53 L (4.10-5.20) X 10*6/uL Hgb 9.2 L (12.0-15.0) g/dL Hct 30.1 L (37.2-46.3) % MCH 26.1 L (27.0-32.0) pg MCHC 30.6 L (32.0-37.0) g/dL RDW 15.6 H (11.5-14.5) % Immature Gran # 0.05 H (0.00-0.04) X 10*3/uL Neutrophils # 8.74 H (1.80-7.70) X 10*3/uL Lymphocytes # 0.89 L (0.90-5.00) X 10*3/uL Monocytes # 1.26 H (0.20-1.00) X 10*3/uL Microbiology - Last 24 Hours (Table) 02/21/22 15:12 Urine Culture - Final Urine,Voided Assessment and Plan Assessment: Severe lumbar stenosis status post decompression and fusion of the lumbosacral spine on 02/19 Possible UTI versus asymptomatic bacteriuria. Completely treated and finished antibiotic, no further treatments required outpatient Chronic kidney disease stage III Femoral resolved. Postop anemia is expected. Leukocytosis most likely reactive, trending down. Plan: Discontinue ceftriaxone since patient has negative urine culture Encourage oral hydration Continue with pain management and DVT prophylaxis as per surgery team Neurology service. The patient. Tremor resolved. Labs and medication were reviewed.. Continue same treatment. Continue with symptomatic treatment. Resume home medication. Monitor labs and vitals. DVT and GI prophylaxis. Further recommendations as per clinical course of the patient DVT prophylaxis: Deferred to surgery team GI Prophylaxis: Ppi PT/OT: May benefit from rehab Patient is medically stable
[2022-02-23] MEDS: ATORVASTATIN 40 MG TAB PO SCH (20:41)
[2022-02-23] MEDS: lisinopriL 5 MG TAB PO SCH (20:41)
[2022-02-23] MEDS: amLODIPine 2.5 MG TAB PO SCH (20:41)
[2022-02-24] MEDS: HYDROcodone/APAP 5-325MG 1 EACH TAB PO PRN ×3 (01:04→09:34)
[2022-02-24 08:43] VITALS: BP 127/71; PULSE 79; RESP 19; TEMP 97.9
[2022-02-24] MEDS: CHOLECALCIFEROL 25 MCG (1000 IU) TABLET PO SCH (08:55)
[2022-02-24] MEDS: GABAPENTIN 300 MG CAP PO SCH (08:55)
[2022-02-24] MEDS: FLUoxetine HCL 20 MG CAP PO SCH (08:55)
[2022-02-24] MEDS: PANTOPRAZOLE 40 MG TABLET PO SCH (08:55)
[2022-02-24] MEDS: SENNOSIDES-DOCUSATE SODIUM 1 EACH TAB PO SCH (08:55)
[2022-02-24] MEDS: NITROFURANTOIN MONOHYD/M-CRYST 100 MG CAP PO SCH (09:15)
--- NOTE | 2022-02-24 11:55 | P.PN ---
Subjective This is a pleasant 71 years old female with multiple problems was admitted for severe lumbar stenosis and underwent decompressive surgery with fusion of the lumbar sacral spine on 02/19 with orthopedic team. Medical team were following the patient for medical management as a consult. Patient today's line and chair looks comfortable, denies any specific symptoms, no chest pain or dyspnea. Her back pain still hurts about 67/10 in severity with orthopedic team on the case. From constipation but declined laxative. No abdominal pain or vomiting. On ceftriaxone for possible UTI, when it. Patient today patient denies any dysuria or urgency or change in frequency. She denies any other urinary complaints. Urine culture is pending. Neurology were following the patient for tremor have cleared her for discharge. Trouble resolved. She has no history of smoking or alcohol. 02/23/2022 Patient clinically is doing well, she said she is improving, she denies any chest pain or dyspnea She has no GI symptoms, no diarrhea. She denies any urinary tract symptoms, no dysuria or urgency or change in frequency, she was started on ceftriaxone on admission for suspicion of UTI for abnormal UA however urine culture came back negative today. She finished three- day course of IV antibiotic. No need more antibiotics for UTI upon discharge. Patient finished treatment and she is as symptomatic. Patient still has some constipation most likely secondary to narcotics for her pain control however patient declines any stool laxative 0.04. Patient feels generally weak but she is improving every day, she is telling me she can be considered for discharge today. And she agreeable forgoing to subacute rehab upon discharge. Blood pressure is controlled on Norvasc and lisinopril. Leukocytosis trending down. Hemoglobin stable at 9.2. patient is medically stable Stable discharged today to [facility] 02/24/2022 Patient sitting up in the chair complaining from pain at the surgery site in the lower back, lower back wound is examined, and she showing dressing and a place with no surrounding swelling or erythema or signs of cellulitis. Other than that patient denies any other complaints, no headache or weakness or numbness, no blurred vision or slurred speech. No chest pain or dyspnea or coughing. No abdominal pain or vomiting and she tolerates diet. She has constipation and she refuses any laxative. She denies any urinary complaints. No weakness or numbness. Vitas looks stable. No labs from today. Yesterday patient was cleared for discharge by medical and surgery team, discharge was held for placement issue, today there is no other medical issue other than pain control which is managed by surgery team other than that patient is still medically clear for discharge. Antibiotics were stopped yesterday because patient finished treatment for UTI, urine culture is negative and patient does not have any more urinary symptoms. However prognosis remains guarded and patient was instructed to follow up with her PCP in one week after discharge and she verbalized understanding and acceptance Objective - Vital Signs Vital signs: Vital Signs Temp 97.9 F 02/24/22 08:00 Pulse 79 02/24/22 08:00 Resp 19 02/24/22 08:00 BP 127/71 02/24/22 08:00 Pulse Ox 96 02/24/22 08:00 FiO2 Intake & Output 02/23/22 02/24/22 02/24/22 18:59 06:59 18:59 Intake Total 360 580 Output Total 100 Balance 260 580 Intake: Oral 360 580 Output: Urine 100 Other: Voiding Method Toilet # Voids 4 1 - Exam -GENERAL: The patient is alert and oriented x3, not in any acute distress. Obese HEENT: Pupils are round and equally reacting to light. EOMI. No scleral icterus. No conjunctival pallor. Normocephalic, atraumatic. No pharyngeal erythema. No thyromegaly. CARDIOVASCULAR: S1 and S2 present. No murmurs, rubs, or gallops. PULMONARY: Chest is clear to auscultation, no wheezing or crackles. ABDOMEN: Soft, nontender, nondistended, normoactive bowel sounds. No palpable or ganomegaly. -MUSCULOSKELETAL: No joint swelling or deformity. Surgical wound with Pitressin in a Place, rest of exam is deferred to surgery team EXTREMITIES: No cyanosis, clubbing, or pedal edema. NEUROLOGICAL: Gross neurological examination did not reveal any focal deficits. SKIN: No rashes. no petechiae. - Labs CBC & Chem 7: 02/23/22 06:36 02/22/22 06:22 Labs: Microbiology - Last 24 Hours (Table) 02/21/22 15:12 Urine Culture - Final Urine,Voided Assessment and Plan Assessment: Severe lumbar stenosis status post decompression and fusion of the lumbosacral spine on 02/19 Possible UTI versus asymptomatic bacteriuria. Completely treated and finished antibiotic, no further treatments required outpatient Chronic kidney disease stage III Femoral resolved. Postop anemia is expected. Leukocytosis most likely reactive, trending down. Plan: Discontinue ceftriaxone since patient has negative urine culture Encourage oral hydration Continue with pain management and DVT prophylaxis as per surgery team Neurology service cleared The patient. Tremor resolved. Labs and medication were reviewed.. Continue same treatment. Continue with symptomatic treatment. Resume home medication. Monitor labs and vitals. DVT and GI prophylaxis. Further recommendations as per clinical course of the patient DVT prophylaxis: Deferred to surgery team GI Prophylaxis: Ppi PT/OT: May benefit from rehab Patient is medically stable patient was instructed to follow up with her PCP Dr. Barbosa in 1 week after discharge and she agrees
[2022-02-24] MEDS: MULTIVITAMINS, THERA 1 EACH TAB PO SCH (12:01)
[2022-02-24] MEDS: FOLIC ACID 1 MG TAB PO SCH (12:01)
[2022-02-24] MEDS: THIAMINE 100 MG TAB PO SCH (12:01)
--- NOTE | 2022-02-24 12:48 | P.DS ---
Providers Date of admission: 02/23/22 15:12 Expected date of discharge: 02/24/22 Attending physician: Dasia Campos Consults: 02/19/22 11:07 Consult Physician Routine Consulting Provider: Anna Manrique Consult Reason/Comments: Medical management Do you want consulting provider notified?: Yes 02/20/22 11:59 Consult Physician Routine Consulting Provider: Humberot Clay Consult Reason/Comments: Acute post-op Intentional UE tremor Do you want consulting provider notified?: Yes Primary care physician: Benny Barbosa - Discharge Diagnosis(es) (1) History of lumbar spinal fusion Patient was admitted to the OR on 02/19/22 to undergo decompression of L2-4, L3- 4 fusion and exploration of prior fusion. She had failed conservative measures as an outpatient and desired to proceed with elective surgery after given informed consent. She underwent the above procedure which she tolerated well without complication. Postoperative hospital course has remained without compli cation. On day of discharge she is afebrile, vital signs stable, labs within acceptable ranges, tolerating by mouth meds and diet, voiding without difficulty, positive flatus, denies abdominal pain or calf pain, pain is controlled on oral pain medication and has no new complaints. Wound is benign, neurovascular status is intact, calves are soft and nontender, abdomen soft and nontender. Review of systems is negative for numbness, tingling, fever, chills, chest pain, shortness of breath, nausea, vomiting, dizziness, headaches, slurred speech or other. Current Visit: No Status: Acute Priority: Medium Procedures: L2-4 decompresion, L3-4 fusion Patient Condition at Discharge: Good Plan - Discharge Summary Discharge Rx Participant: No New Discharge Prescriptions: New Sennosides-Docusate Sodium [Senokot-S] 1 tab PO BID PRN #60 tablet PRN Reason: Constipation Baclofen 10 mg PO TID PRN #60 tab PRN Reason: Spasms Gabapentin 600 mg PO BID PRN 7 Days #14 tab PRN Reason: Pain HYDROcodone/APAP 5-325MG [[place] 5] 1 each PO Q6HR PRN #28 tab PRN Reason: Pain Folic Acid 1 mg PO DAILY@1200 tab Thiamine [Vitamin B-1] 100 mg PO DAILY@1200 tab Continue Cholecalciferol [Vitamin D3 (25 Mcg = 1000 Iu)] 1,000 unit PO BID Oxybutynin Xl [Ditropan XL] 5 mg PO 1430 Gabapentin [Neurontin] 600 mg PO BID FLUoxetine HCL [PROzac] 40 mg PO DAILY Enalapril [Vasotec] 2.5 mg PO HS Omeprazole [PriLOSEC] 40 mg PO DAILY amLODIPine BESYLATE [Norvasc] 2.5 mg PO HS Atorvastatin [Lipitor] 40 mg PO HS Acetaminophen [Tylenol Extra Strength] 500 mg PO Q6H PRN PRN Reason: Pain Discontinued Acetaminophen-Codeine 300-30mg [Tylenol w/codeine #3] 1 - 2 tab PO Q4-6H PRN PRN Reason: Pain nitrofurantoin macrocrystaL [Nitrofurantoin] 100 mg PO BID Discharge Medication List Cholecalciferol [Vitamin D3 (25 Mcg = 1000 Iu)] 1,000 unit PO BID 10/12/18 [History] FLUoxetine HCL [PROzac] 40 mg PO DAILY 10/12/18 [History] Gabapentin [Neurontin] 600 mg PO BID 10/12/18 [History] Oxybutynin Xl [Ditropan XL] 5 mg PO 1430 10/12/18 [History] Enalapril [Vasotec] 2.5 mg PO HS 10/30/18 [History] Omeprazole [PriLOSEC] 40 mg PO DAILY 12/12/18 [History] amLODIPine BESYLATE [Norvasc] 2.5 mg PO HS 10/20/19 [History] Acetaminophen [Tylenol Extra Strength] 500 mg PO Q6H PRN 05/04/21 [History] Atorvastatin [Lipitor] 40 mg PO HS 02/15/22 [History] Baclofen 10 mg PO TID PRN #60 tab 02/21/22 [Rx] Gabapentin 600 mg PO BID PRN 7 Days #14 tab 02/21/22 [Rx] HYDROcodone/APAP 5-325MG [[place] 5] 1 each PO Q6HR PRN #28 tab 02/21/22 [Rx] Sennosides-Docusate Sodium [Senokot-S] 1 tab PO BID PRN #60 tablet 02/21/22 [Rx] Folic Acid 1 mg PO DAILY@1200 tab 02/23/22 [Rx] Thiamine [Vitamin B-1] 100 mg PO DAILY@1200 tab 02/23/22 [Rx] Follow up Appointment(s)/Referral(s): Benny Barbosa MD [Primary Care Provider] - 1 Week Rob Marie PAC [PHYSICIAN WEB RETAILER] - 2 Weeks (Patient may follow-up with Rob Marie PA-C or Dr. Francisco Javier Campos at [facility] in 2-3 weeks following discharge. ) [facility] the [place], [NON-STAFF] - As Needed Residential Home,[facility] [NON-STAFF] - As Needed Activity/Diet/Wound Care/Special Instructions: 1. Patient may shower with Optifoam dressing intact. 2. Patient may remove Optifoam dressing in 3 days and shower without a dressing at that time. 3. Patient should refrain from driving until at least after their first follow- up appointment in the office. 4. Patient should avoid excessive bending, twisting, lifting; avoid overhead lifting; no lifting greater than 10 pounds 5. Take medications as prescribed 6. Patient should avoid anti-inflammatory medications over the next 6 weeks postoperatively 7. Do not soak in tub
== END 2022-02-24 13:09 ==
LOC: OR 05:31 → 4SSUR 12:23 → OR 02-21 06:57 → 4SSUR 02-23 15:12
PROVIDERS: ADMIT Family Medicine; ATTEND Orthopaedic Surgery Orthopaedic Surgery of the Spine
DX: M51.16 Intervertebral disc disorders with radiculopathy, lumbar region (principal); M48.062 Spinal stenosis, lumbar region with neurogenic claudication; M41.50 Other secondary scoliosis, site unspecified; R25.1 Tremor, unspecified; E78.5 Hyperlipidemia, unspecified; K21.9 Gastro-esophageal reflux disease without esophagitis; M54.9 Dorsalgia, unspecified; G89.29 Other chronic pain; G62.9 Polyneuropathy, unspecified; I13.10 Hypertensive heart and chronic kidney disease without heart failure, with stage 1 through stage 4 chronic kidney disease, or unspecified chronic kidney disease; N18.30 Chronic kidney disease, stage 3 unspecified; F41.0 Panic disorder [episodic paroxysmal anxiety]; M85.2 Hyperostosis of skull; F32.A Depression, unspecified; K59.03 Drug induced constipation; T40.605A Adverse effect of unspecified narcotics, initial encounter; I70.0 Atherosclerosis of aorta; E66.9 Obesity, unspecified; Z98.1 Arthrodesis status; Z87.891 Personal history of nicotine dependence; Z81.8 Family history of other mental and behavioral disorders; Z82.0 Family history of epilepsy and other diseases of the nervous system; Z85.828 Personal history of other malignant neoplasm of skin; Z96.652 Presence of left artificial knee joint; Z79.899 Other long term (current) drug therapy; Z68.39 Body mass index [BMI] 39.0-39.9, adult
CPT/HCPCS: 20680; 22612; 22614; 22853 ×2; 20930; 20936; 95816; 97116; 97162; 80048; 84443; 82330; 85025 ×2; 72100; 70450; G0378 ×2; C1713; C1762; J2250; J0330; J2710; J0690 ×2; J2405; J0696 ×3; J3010; J1170; J2370; J2704; J2001; 86850; 86900; 86901; 96365; 96366

== ENCOUNTER 2022-03-22 04:39 | Emergency (ER) | payer MEDICARE, OTHER ==
[2022-03-22 04:49] VITALS: TEMP 97.9
[2022-03-22] MEDS ORDERED: HYDROmorphone 0.5 MG/0.5 ML SYRINGE IVP STA (06:37)
--- NOTE | 2022-03-22 06:43 | ED ---
Back Pain HPI - General Chief Complaint: Back Pain/Injury Stated Complaint: Back Pain Time Seen by Provider: 03/22/22 06:25 Source: patient, family, EMS, RN notes reviewed, old records reviewed Limitations: no limitations - History of Present Illness Initial Comments: 71-year-old female presents to the emergency room with family member complaining of 2 weeks of low back pain. Patient states that she underwent back surgery on February [address] Campos. Was discharged to [facility] for rehab and PT and then discharged to home on the . Patient states that she continues to have pain and is out of [place]. She does have an appointment for follow-up with Dr. Campos on the but could not tolerate the pain. She states that she has not had a good bowel movement in several days. History of hypertension, renal disease, neuropathy and osteoarthritis. MD Complaint: back pain -: week(s) (2) Similar Symptoms Previously: Yes Place: home Radiation: left leg Severity scale (1-10): 10 Consistency: constant Improves With: none Worsens With: movement, walking, other (palpation) Context: other (lumbar fusion 02/19/22) Associated Symptoms: constipation Treatments Prior to Arrival: cold therapy - Related Data Home Medications Medication Instructions Recorded Confirmed Cholecalciferol [Vitamin D3 (25 1,000 unit PO BID 10/12/18 02/19/22 Mcg = 1000 Iu)] FLUoxetine HCL [PROzac] 40 mg PO DAILY 10/12/18 02/19/22 Gabapentin [Neurontin] 600 mg PO BID 10/12/18 02/19/22 Oxybutynin Xl [Ditropan XL] 5 mg PO 1430 10/12/18 02/19/22 Enalapril [Vasotec] 2.5 mg PO HS 10/30/18 02/19/22 Omeprazole [PriLOSEC] 40 mg PO DAILY 12/12/18 02/19/22 amLODIPine BESYLATE [Norvasc] 2.5 mg PO HS 10/20/19 02/19/22 Acetaminophen [Tylenol Extra 500 mg PO Q6H PRN 05/04/21 02/19/22 Strength] Atorvastatin [Lipitor] 40 mg PO HS 02/15/22 02/19/22 Previous Rx's Medication Instructions Recorded Baclofen 10 mg PO TID PRN #60 tab 02/21/22 Gabapentin 600 mg PO BID PRN 7 Days #14 tab 02/21/22 HYDROcodone/APAP 5-325MG [[place] 5] 1 each PO Q6HR PRN #28 tab 02/21/22 Sennosides-Docusate Sodium 1 tab PO BID PRN #60 tablet 02/21/22 [Senokot-S] Folic Acid 1 mg PO DAILY@1200 tab 02/23/22 Thiamine [Vitamin B-1] 100 mg PO DAILY@1200 tab 02/23/22 Allergies Allergy/AdvReac Type Severity Reaction Status Date / Time No Known Allergies Allergy Verified 02/19/22 06:09 Review of Systems ROS Statement: Those systems with pertinent positive or pertinent negative responses have been documented in the HPI. ROS Other: All systems not noted in ROS Statement are negative. Past Medical History Past Medical History: Cancer, GERD/Reflux, Hyperlipidemia, Hypertension, Osteoarthritis (OA), Renal Disease Additional Past Medical History / Comment(s): chronic back pain, neuropathy in feet, intermittent pain in back of upper right leg. heart murmur, peptic ulcer disease, hx hiatal hernia, overactive bladder, skin cancer. sees kidney ([facility]) yearly History of Any Multi-Drug Resistant Organisms: None Reported Past Surgical History: Back Surgery, Heart Catheterization, Joint Replacement Additional Past Surgical History / Comment(s): claudia to lower back removed 1 04/21/21, bilateral eye lens replacement, left knee replacement. skin cancer removed from face and left hand. Colonoscopy 2019. PAIN CLINIC PROCEDURES Past Anesthesia/Blood Transfusion Reactions: No Reported Reaction Additional Past Anesthesia/Blood Transfusion Reaction / Comment(s): some sort problem w/heart after knee replacement in [place], sent to [facility] in [place], had heart cath. & everything was fine w/it per pt. Past Psychological History: Anxiety, Depression, Panic Disorder Smoking Status: Former smoker Past Alcohol Use History: Rare Past Drug Use History: None Reported - Past Family History Mother Family Medical History: Dementia Additional Family Medical History / Comment(s): Anxiety. Father Family Medical History: Dementia Additional Family Medical History / Comment(s): Alzheimer's dz General Exam Limitations: no limitations General appearance: alert, in no apparent distress Head exam: Present: atraumatic, normocephalic Eye exam: Absent: scleral icterus, conjunctival injection, periorbital swelling ENT exam: Present: mucous membranes moist Neck exam: Absent: tenderness, meningismus Respiratory exam: Absent: respiratory distress, accessory muscle use Cardiovascular Exam: Present: regular rate GI/Abdominal exam: Present: soft. Absent: distended, rigid Back exam: Present: tenderness, vertebral tenderness (LS spine surgical site; no erythema or drainage). Absent: CVA tenderness (R), CVA tenderness (L) Expanded Back exam: Absent: saddle anesthesia Neurological exam: Present: alert, oriented X3 Psychiatric exam: Present: normal affect, normal mood Skin exam: Present: warm, dry, normal color. Absent: cyanosis, diaphoretic, petechiae, pallor Course Vital Signs 03/22/22 03/22/22 03/22/22 04:45 04:49 05:49 Temperature 97.9 F Pulse Rate 76 74 71 Respiratory 18 18 48 H Rate Blood Pressure 135/99 151/74 151/64 O2 Sat by Pulse 95 99 98 Oximetry 03/22/22 03/22/22 03/22/22 06:50 07:18 09:01 Temperature Pulse Rate 78 74 73 Respiratory 18 18 18 Rate Blood Pressure 162/89 144/75 152/71 O2 Sat by Pulse 98 97 99 Oximetry Medical Decision Making - Medical Decision Making Patient presents with 2 weeks of low back pain status post surgery on February [address] Campos. Preoperative diagnosis was degenerative scoliosis with severe spinal stenosis L2- 3 spinal stenosis L3- 4 history of prior lumbar decompression and fusion L4-S1 with retained hardware, lower extremity radiculopathy and neurogenic claudication, degenerative disc disease, and facet arthrosis. Patient denies any bowel or bladder incontinence. Family states that she has been able to get up and ambulate to the bathroom. Denies any fevers, shortness of breath or abdominal pain. Took her last [place] yesterday morning did have a Tylenol 3 this morning per family. Patient was given fentanyl by EMS and additional Dilaudid in the ER for pain management. X-ray lumbar spine interpreted by me shows lumbar hardware from recent lumbar fusion appears intact. No malalignment. Radiologist's interpretation postsurgical change with posterior lumbar fusion from L2 through L4. No malalignment or vertebral compression collapsed. Laminectomy change mid to lower lumbar spine. Labs show no evidence of leukocytosis, electrolytes are unremarkable. I did consider testing for urinalysis, however patient denies any dysuria, no fevers or abdominal pain. Patient's pain is likely postoperative pain. She was given 2 [place] to be taken at home as needed every 4 hours. Keep her a ppointment with Dr. Campos as scheduled tomorrow. Case discussed with Dr. Davis. Family at bedside agreeable to this plan of care. Was pt. sent in by a medical professional or institution? @No Did you speak to anyone other than the patient for history? @Family grandson Did you review nursing and triage notes? @Agreed Were old charts reviewed? @Yes Differential Diagnosis? @ MDM Differential Back Pain: Strain, zoster, cauda equina syndrome, epidural abscess, vertebral osteomyelitis, discitis, fracture, subluxation, disc herniation, DJD, spinal stenosis, dissection, AAA, pancreatitis, peptic ulcer disease, pyelonephritis, kidney stone this is not meant to be an all-inclusive list. EKG interpreted by me (3pts min.)? @Not applicable X-rays interpreted by me (1pt min.)? @Yes CT interpreted by me (1pt min.)? @Not applicable U/S interpreted by me (1pt. min.)? @Not applicable What testing was considered but not performed? (CT, X-rays, U/S, labs)? Why? @CT was considered however patient does not have a fever, no evidence of leukocytosis. No signs of cauda equina. What meds were considered but not given? Why? @None Did you discuss the management of the patient with other professionals? @No Did you reconcile home meds? @ [none] Was smoking cessation discussed for >3mins.? @Not applicable Was critical care preformed (if so, how long)? @No Were there social determinants of health that impacted care today? How? (Homelessness, low income, unemployed, alcoholism, drug addiction, transportation, low edu. Level, literacy, decrease access to med. care, snf, rehab)? @I Did discuss with patient and grandson the importance of physical therapy and to schedule that with her orthopedic doctor for home to improve recovery time Was there de-escalation of care discussed even if they declined? (Discuss DNR or withdrawal of care, Hospice)? @Not applicable What co-morbidities impacted this encounter? (DM, HTN, Smoking, COPD, CAD, Cancer, CVA, Hep., AIDS, mental health diagnosis, sleep apnea, morbid obesity)? @Neuropathy, osteoarthritis and hypertension and obesity Was patient admitted / discharged? @Discharged Undiagnosed new problem with uncertain prognosis? @ [none] Drug Therapy requiring intensive monitoring for toxicity (Heparin, Nitro, Insulin, Cardizem)? @No Were any procedures done? @None Diagnosis/symptom? @Postsurgical back pain Acute, or Chronic, or Acute on Chronic? @Acute on chronic Uncomplicated (without systemic symptoms) or Complicated (systemic symptoms)? @Uncomplicated Side effects of treatment? @ [none] Exacerbation, Progression, or Severe Exacerbation] @ [no] Poses a threat to life or bodily function? @ [no] - Lab Data Result diagrams: 03/22/22 06:50 03/22/22 06:50 Lab Results 03/22/22 03/22/22 Range/Units 06:50 06:50 WBC 4.1 (3.8-10.6) k/uL RBC 3.94 (3.80-5.40) m/uL Hgb 10.5 L (11.4-16.0) gm/dL Hct 33.3 L (34.0-46.0) % MCV 84.5 (80.0-100.0) fL MCH 26.7 (25.0-35.0) pg MCHC 31.6 (31.0-37.0) g/dL RDW 14.8 (11.5-15.5) % Plt Count 258 (150-450) k/uL MPV 8.1 Neutrophils % 52 % Lymphocytes % 23 % Monocytes % 15 % Eosinophils % 5 % Basophils % 1 % Neutrophils # 2.1 (1.3-7.7) k/uL Lymphocytes # 1.0 (1.0-4.8) k/uL Monocytes # 0.6 (0-1.0) k/uL Eosinophils # 0.2 (0-0.7) k/uL Basophils # 0.0 (0-0.2) k/uL Manual Slide Review Performed Hypochromasia Marked Sodium 139 (137-145) mmol/L Potassium 4.2 (3.5-5.1) mmol/L Chloride 106 (98-107) mmol/L Carbon Dioxide 26 (22-30) mmol/L Anion Gap 7 mmol/L BUN 15 (7-17) mg/dL Creatinine 0.77 (0.52-1.04) mg/dL Est GFR (CKD-EPI)AfAm 89 (>60 ml/min/1.73 sqM) Est GFR (CKD-EPI)NonAf 77 (>60 ml/min/1.73 sqM) Glucose 91 (74-99) mg/dL Calcium 8.5 (8.4-10.2) mg/dL Disposition Clinical Impression: Back pain at L4-L5 level Disposition: HOME SELF-CARE Condition: Good Instructions (If sedation given, give patient instructions): Back Pain (ED) Additional Instructions: Take pain medication as prescribed. Keep your appointment with Tamara Sandhu as scheduled tomorrow. Please contact your doctor regarding physical therapy for continuation of care to improve your recovery. Return to the emergency room with any new or concerning symptoms. Is patient prescribed a controlled substance at d/c from ED?: No Referrals: Benny Barbosa MD [Primary Care Provider] - 1-2 days Time of Disposition: 08:37
[2022-03-22 06:51] VITALS: RESP 18
--- NOTE | 2022-03-22 07:43 | XR ---
EXAMINATION TYPE: XR lumbar spine 2 or 3V DATE OF EXAM: 03/22/2022 Comparison: 01/08/2021 CT Clinical History: 71-year-old female pain s/p surgery 02/19 Findings: Levoconvex curvature along the mid to lower lumbar spine is unchanged. Lateral and anterior bridging endplate spondylosis lower thoracic and upper to mid lumbar spine is redemonstrated. Postsurgical change characterized by posterior lumbar fusion seen from L2 through L4 levels. Interbod y device seen at L4-L5 but the previous posterior fixation hardware that extended down to include L5 and S1 appears to have been removed. 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 Vertebral body heights are preserved and alignment otherwise maintained. Laminectomy change mid to lower lumbar spine. Impression: 1. Postsurgical change of posterior lumbar fusion from L2 through L4 levels. Interbody device at L4-L 5 but previous posterior fixation hardware that extended down to include L5 and S1 has been removed. 2. 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 3. No malalignment or vertebral compression collapse. 4. Laminectomy change mid to lower lumbar spine.
[2022-03-22 08:00] LABS: Calcium 8.5 mg/dL (8.4-10.2); Potassium 4.2 mmol/L (3.5-5.1)
[2022-03-22 08:07] LABS: Basophils % (A) 1 %; Eosinophils # (A) 0.2 k/uL (0-0.7); Eosinophils % (A) 5 %; HCT 33.3 % (34.0-46.0); HGB 10.5 gm/dL (11.4-16.0); Hypochromasia Marked; Lymphocytes % (A) 23 %; MCH 26.7 pg (25.0-35.0); MCHC 31.6 g/dL (31.0-37.0); MCV 84.5 fL (80.0-100.0); Mean Platelet Volume 8.1; Monocytes # (A) 0.6 k/uL (0-1.0); Monocytes % (A) 15 %; Neutrophils # (A) 2.1 k/uL (1.3-7.7); Neutrophils % (A) 52 %; Platelet Count 258 k/uL (150-450); RBC 3.94 m/uL (3.80-5.40); RDW 14.8 % (11.5-15.5); WBC 4.1 k/uL (3.8-10.6)
[2022-03-22] MEDS ORDERED: HYDROcodone/APAP 5-325MG 1 EACH TAB PO STA (08:36)
[2022-03-22 09:04] VITALS: BP 152/71; PULSE 73
== END 2022-03-22 09:04 | disposition home or self-care (01) ==
LOC: EC 04:39
DX: M54.50 Low back pain, unspecified (principal); K21.9 Gastro-esophageal reflux disease without esophagitis; I10 Essential (primary) hypertension; E78.5 Hyperlipidemia, unspecified; M19.90 Unspecified osteoarthritis, unspecified site; F41.9 Anxiety disorder, unspecified; F32.A Depression, unspecified; Z87.891 Personal history of nicotine dependence; Z79.899 Other long term (current) drug therapy; Z79.1 Long term (current) use of non-steroidal anti-inflammatories (NSAID)
CPT/HCPCS: 36415; 80048; 85025; 72100; 99284; 96374; J1170

== ENCOUNTER → 2022-11-28 | Outpatient (CLI) | payer MEDICARE, OTHER ==
--- NOTE | 2022-11-28 12:57 | CT ---
EXAMINATION TYPE: CT brain wo con DATE OF EXAM: 11/28/2022 COMPARISON: 02/21/2000 HISTORY: right side numbness in lip, arm and leg x9 days ago CT DLP: 1219 mGycm Automated exposure control for dose reduction was used. FINDINGS: Mild to moderate generalized degenerative change. There are areas of low attenuation within the periv entricular white matter which are nonspecific. There is no evidence of acute hemorrhage or mass effec t. No midline shifts. Orbits are symmetric. Calvarium intact. Hyperostosis of the frontal bone. A partially empty sella tur cica. Craniocervical junction maintained. Intracranial atherosclerotic changes noted. IMPRESSION: MILD GENERALIZED DEGENERATIVE CHANGE AND NONSPECIFIC WHITE MATTER FINDINGS MOST COMPATIBLE WITH MICRO VASCULAR ISCHEMIA. IF THERE IS CONCERN FOR RECENT ISCHEMIA CORRELATE WITH MRI CLINICALLY WARRANTED
== END | disposition home or self-care (01) ==
LOC: RADCTMAIN 12:25
PROVIDERS: ATTEND Family Medicine
DX: G93.89 Other specified disorders of brain (principal); R90.82 White matter disease, unspecified; R20.0 Anesthesia of skin
CPT/HCPCS: 70450

== ENCOUNTER → 2023-01-15 | Outpatient (CLI) | payer MEDICARE, OTHER ==
--- NOTE | 2023-01-20 11:47 | MR ---
EXAMINATION TYPE: MR brain wo con DATE OF EXAM: 01/15/2023 COMPARISON: CT brain 11/28/2022 HISTORY: TIA. Episode of right arm and right leg numbness for 15 mins CONTRAST: Performed utilizing 0 mL intravenous Gadavist gadolinium contrast. TECHNIQUE: Multiplanar, multiecho imaging on a 3.0 [place] magnet is performed through the brain. Stud y is performed within 24 hours of arrival to the hospital. The craniovertebral junction is normal. The pituitary is normal. Diffusion-weighted imaging is performed. No abnormal hyperintensity is present to suggest an acute i ntracranial infarct or acute ischemic change. There are scattered punctate areas of hyperintensity on T2 and Inversion Recovery weighted sequences which are non-specific but can be related to microvascular ischemic changes. Areas include the brains tem and periventricular white matter and centrum semiovale. The largest area is above the posterior h orn right lateral ventricle and measures 2.3 x 1.4 cm. Ventricles and sulci are somewhat prominent for the patient age. IMPRESSION: 1. Chronic appearing periventricular and deep white matter changes likely on the basis of chronic whi te matter ischemic change. 2. No acute intracranial process radiographically apparent.
== END | disposition home or self-care (01) ==
LOC: RADMRIMAIN 17:57
PROVIDERS: ATTEND Psychiatry & Neurology Neurology
DX: G45.9 Transient cerebral ischemic attack, unspecified (principal); R90.82 White matter disease, unspecified
CPT/HCPCS: 70551

== ENCOUNTER 2023-08-21 10:55 | Day surgery (SDC) | payer MEDICARE, OTHER ==
[~2023-08-21 10:55] MED LIST changes: +LIDOCAINE 1% (10MG/ML) FOR IV START INTRADERMA PRN; -ceFAZolin 1,000 MG in SODIUM CHLORIDE 0.9% IRRIGATIO 1,000 ML IRRIGATION PRN
[2023-08-21] MEDS: LACTATED RINGERS 1,000 ML IV SCH (11:31)
[2023-08-21 11:38] VITALS: RESP 16; TEMP 97.5
[2023-08-21] MEDS ORDERED: PROPOFOL 10 MG/ML 20 ML VIAL IV ONE (12:44)
--- NOTE | 2023-08-21 13:02 | P.PCN ---
Date of Procedure: 08/21/23 Procedure(s) Performed: BRIEF HISTORY: Patient is a 72-year-old pleasant white female scheduled for an elective colonoscopy as a part of evaluation management of rectal bleeding. PROCEDURE PERFORMED: Colonoscopy with biopsy PREOPERATIVE DIAGNOSIS: Intermittent rectal bleeding. IV sedation per Anesthesia. PROCEDURE: After informed consent was obtained, the patient, was brought into the endoscopy unit. IV sedation was administered by Anesthesia under continuous monitoring. Digital rectal examination was normal. Initially the Olympus CF-160 flexible video colonoscope was then inserted in the rectum, gradually advanced into the cecum without any difficulty. Careful examination was performed as the scope was gradually being withdrawn. Ileocecal valve and the appendiceal orifice were visualized and appeared normal. Prep was excellent. Mucosa of the cecum, ascending colon, transverse colon, descending colon, sigmoid colon, and rectum appeared normal. In the distal rectum there was a 5 mm polyp that was removed by cold biopsy. Moderate diffuse diverticulosis seen. Retroflexion was perform ed in the rectum and n small internal hemorrhoids were seen. The patient tolerated the procedure well. IMPRESSION: 5 mm rectal polyp status post cold biopsy Small internal hemorrhoids Diffuse diverticulosis RECOMMENDATIONS: Findings of this examination were discussed with the patient as well as her family. She was advised to follow-up with the biopsy results. If the biopsy reveals adenoma she can have repeat colonoscopy in 5 years..
[2023-08-21 13:35] VITALS: BP 151/82; PULSE 77
== END 2023-08-21 13:50 | disposition home or self-care (01) ==
LOC: ORWHC2ENDO 10:55
PROVIDERS: ATTEND Internal Medicine Gastroenterology
DX: K62.1 Rectal polyp (principal); K64.8 Other hemorrhoids; I10 Essential (primary) hypertension; E78.5 Hyperlipidemia, unspecified; N28.9 Disorder of kidney and ureter, unspecified; F41.9 Anxiety disorder, unspecified; F32.A Depression, unspecified; Z79.82 Long term (current) use of aspirin; Z79.899 Other long term (current) drug therapy
CPT/HCPCS: 88305; 45380; J2704